=== PATIENT | male | born 1950 | race Caucasian/White ===

== ENCOUNTER 2024-11-14 14:57 | Emergency (ER) | payer SELFPAY ==
[~2024-11-14] VITALS: Ht 182.9 cm; Wt 79.4 kg
[2024-11-14] MEDS ORDERED: LIDOCAINE HCL 1% 20 ML VIAL INJ SCH (15:30)
[2024-11-14] MEDS ORDERED: CEPH500T PO (15:32)
[2024-11-14] MEDS ORDERED: MUPI22O TP (15:32)
[2024-11-14] MEDS ORDERED: IBUP-2077 PO (15:32)
--- NOTE | 2024-11-14 15:33 | ERN ---
ED Note History of Present Illness Stated Complaint: LEFT LOWER EXTREMITY LACERATION Chief Complaint: Laceration/Avulsion Time Seen by MD: 15:25 Time Seen by Midlevel: 15:10 Dictation: Patient is a 74-year-old male here with a laceration to the distal left anterior tibial area onset 1 hour prior to arrival. He said he helping some friends move some furniture when the marisabel slipped and hit him in his leg. No active bleeding at this time last tetanus shot is unknown. Patient states he is not a diabetic. Primary care is at [facility]. Allergies: Coded Allergies: Penicillins (Unverified Allergy, Unknown, 11/14/24) Past Medical History Past Medical History: No Pertinent History Surgical History: None RN Note Reviewed/Agreed w/PFSH: Yes Review of System Dictation CONSTITUTIONAL: Negative except for HPI HEAD/FACE: Negative except for HPI EENT: Negative except for HPI RESPIRATORY: Negative except for HPI GASTROINTESTINAL/ABDOMINAL: Negative except for HPI GENITOURINARY: Negative except for HPI MUSCULOSKELETAL: Negative except for HPI INTEGUMENTARY: Negative except for HPI curvilinear laceration left anterior tib NEUROLOGICAL/PSYCH: Negative except for HPI HEMATOLOGIC/LYMPHATIC: Negative except for HPI All Systems Negative, Except as noted above. 13 point review of systems assessed and all negative except for above. Initial Vital Sign VS Vital Signs Date Time Temp Pulse Resp B/P (MAP) Pulse Ox O2 Delivery O2 Flow Rate FiO2 11/14/24 14:58 99.1 84 18 184/100 97 Room Air 0 Physical Exam Dictation Vital Signs reviewed General Appearance: Alert, oriented x 3, mild acute distress, well developed, nourished. Head and Face: non-traumatic. Eyes: PERRL, pink conjunctivas, eyelid no trauma, anterior chamber with arcus senilis. Ears: Pinnas intact and no signs of trauma or erythema ear canals clear and no discharge TM no erythema Nose: No discharge, no bleeding. Oropharynx: Mouth normal, tongue pink, pharynx clear,no erythema, tonsils no exudates, no abscesses noted, mucous membrane moist Neck: Supple, non-tender, no thyromegaly, no masses, no JVD, no bruits Breast:Deferred Chest:No tenderness, no crepitus, no paradoxical movement, no retractions Lungs:Clear, well-ventilated, symmetric, no rales, no wheezing, no rhonchi, no stridor, good breath sounds bilaterally Heart: Regular rate, regular rhythm, no murmur, no gallops Vascular: no peripheral edema, Abdomen: Soft, positive bowel sounds, nondistended, no guarding, nontender, no rebound, no masses no hepatomegaly, no splenomegaly, no Villalta's sign, no hernias. Rectal: Deferred Genital: Deferred Neurological: Normal speech, motor function intact, sensory function intact Musculoskeletal: Neck nontender, full range of motion, back nontender, full range of motion, Extremities: nontender, full range of motion Skin: Color pink, dry, 8.2 cm laceration to distal left anterior tib fib no active bleeding neurovascular CMS intact Lymphatic: Deferred Results (Laboratory/Radiology) Labs Reviewed?: Yes ED Course ED Course Orders Procedure Category Date Status Time Neomy PHA 11/14/24 Transmitted Sulf/Bacitra/Polymyxin 15:30 Tetanus,Diphtheria PHA 11/14/24 Transmitted Tox [Adult] (Diphther 15:30 Acetaminophen 500mg PHA 11/14/24 Transmitted Tab (Tylenol 500mg T 15:30 Lidocaine Hcl 1% 20ml PHA 11/14/24 Transmitted Vial (Lidocaine Hc 15:30 Cephalexin 500 Mg PHA 11/14/24 Transmitted Capsule (Keflex 500 Mg 15:30 Vital Signs Date Time Temp Pulse Resp B/P (MAP) Pulse Ox O2 Delivery O2 Flow Rate FiO2 11/14/24 14:58 99.1 84 18 184/100 97 Room Air 0 1530/patient had tetanus shot updated, given Keflex 1 g prophylactically. In addition laceration was closed and pain was managed Patient tolerated well He was given wound care instructions Medical Decision Making MDM Medical decision-making based on update of tetanus shot Prophylactic cephalexin given Distal left leg laceration repaired Patient tolerated well Patient given wound care instructions Procedure Procedure Dictation: 1512/procedure explained to patient he agreed to proceed 10 mL 1% lidocaine plain used for local anesthetic Wound cleansed thoroughly with wound cleanser 8.2 cm curvilinear flap. Laceration closed with 12 simple interrupted 2.0 Ethilon sutures Single-layer closure No debridement Patient tolerated well DX & DISP Disposition: Discharge Departure Impression: Primary Impression: Laceration of left lower leg Condition: Stable Scripts Ibuprofen (Ibuprofen 800 mg Tab) 800 Mg Tab 800 MG PO Q8H PRN for fever or pain, #30 TAB 0 Refills Prov: SANGEETA PEPPER NP 11/14/24 Mupirocin (Bactroban 2% Oint) 2 % Oint 1 APPL TP TID for 5 Days, #15 GM 0 Refills apply to affected area(s) Prov: SANGEETA PEPPER NP 11/14/24 Cephalexin (Cephalexin) 500 Mg Tablet 1 TAB PO TID for 7 Days, #21 TAB 0 Refills Prov: SANGEETA PEPPER NP 11/14/24 Additional Instructions: Follow-up with primary care provider in 1 to 2 days. Take medications as directed here in the emergency room. Okay to continue home medications unless otherwise discussed during your visit in the emergency room today. Return to your nearest emergency room if symptoms worsen or if there is no improvement. Call 911 if you need immediate assistance. Take Tylenol or Motrin oxgz-shp-dyr nter as needed and if no contraindications are present. Increase oral hydration. A wound culture or urine culture was ordered here in the emergency room department please follow-up with primary care provider and advise them to get repeat ports from our facility. If you had any Fredo wrap/splints that were applied here, please do not remove them until you see your primary care or s pecialty. Keep laceration repair clean and dry., apply Bactroban ointment 3 times a day for five days with dressing. Sutures out in 14 days by your primary care doctor or may return to the emergency room. Take antibiotics as directed until gone. Referrals: SELF,REFERRAL (PCP) Time of Disposition: 15:31 I have reviewed the case, and I agree with, Diagnosis and Plan SANGEETA PEPPER NP Nov 14, 2024 15:33
[2024-11-14] MEDS: NEOMY SULF/BACITRA/POLYMYXIN B 1 EACH PACKET TP ONE (16:11)
[2024-11-14] MEDS: cePHALexin 500 MG CAPSULE PO ONE (16:12)
[2024-11-14] MEDS: acetaMINOPHEN 500 MG TABLET PO ONE (16:12)
[2024-11-14] MEDS: teTANUS/diphthERIA TOXOID [ADULT] 0.5 ML VIAL IM ONE (16:14)
--- NOTE | 2024-11-14 16:14 | NUR ---
LIDOCAINE ORDER ADMINISTERED BY SANGEETA PEPPER MOUNTER FLUTES AND PICCOLOS AT BEDSIDE
[2024-11-14 16:23] VITALS: BP 177/97; PULSE 88; RESP 16; TEMP 98.9; O2SAT 98
== END 2024-11-14 16:30 | disposition home or self-care (01) ==
LOC: EDH 14:57
DX: S81.812A Laceration without foreign body, left lower leg, initial encounter (principal); Z88.0 Allergy status to penicillin; W22.8XXA Striking against or struck by other objects, initial encounter; Y93.89 Activity, other specified; Y92.89 Other specified places as the place of occurrence of the external cause; Y99.8 Other external cause status
CPT/HCPCS: 12004; 90471; 90714; 99284

== ENCOUNTER 2025-05-26 14:08 | Inpatient (IN) | payer MEDICARE ==
[~2025-05-26] VITALS: Ht 180.3 cm; Wt 75.3 kg
[~2025-05-26 14:08] MED LIST: CEPH500T PO; IBUP-2077 PO; MUPI22O TP
[2025-05-26 15:21] LABS: NUCLEATED RED BLOOD CELLS 0.0 % (0.0-0.19); PLATELET COUNT (AUTO) 192.0 K/uL (130-400); RED BLOOD CELL COUNT(AUTO) 5.37 MIL/uL (4.50-6.20); RED CELL DISTRIBUTION WIDTH 12.4 % (11.0-15.5); WHITE BLOOD COUNT (AUTO) 8.6 K/uL (4.8-10.8)
[2025-05-26 15:31] LABS: APPEARANCE,URINE CLEAR (CLEAR); GLUCOSE, URINE (UA) NEGATIVE (NEGATIVE); LEUKOCYTE ESTERASE ,URINE NEGATIVE Leu/uL (NEGATIVE); NITRATE,URINE NEGATIVE (NEGATIVE); OCCULT BLOOD,URINE SMALL (NEGATIVE)
[2025-05-26 15:32] LABS: CREATININE 1.2 mg/dL (0.5-1.3); GLOMERULAR FILTR. RATE CALC 62.0 mL/min (>90); GLUCOSE,RANDOM 105.0 mg/dL (70-105); SODIUM SERUM 140.0 mmol/L (136-145); UREA NITROGEN, BLOOD 24.0 mg/dL (7-18)
--- NOTE | 2025-05-26 15:32 | EKG ---
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
[2025-05-26 15:34] LABS: ADD UA MICROSCOPIC YES
[2025-05-26 15:36] LABS: ASPARTATE AMINOTRANSFERASE 16.0 U/L (10-37); TOTAL PROTEIN, SERUM 7.1 g/dL (6.0-8.3)
[2025-05-26] MEDS ORDERED: IOHEXOL-350 75 ML VIAL IV ONE (16:00)
--- NOTE | 2025-05-26 16:08 | ERN ---
General Chief Complaint: Abdominal Pain Stated Complaint: ABD PAIN Time Seen by MD: 14:13 Source: patient History of Present Illness Initial Comments He is a 75-year-old male with no past medical history came to with abdominal pain. Timing/Duration: 1-3 hours Severity: moderate Associated Symptoms: denies symptoms Allergies: Coded Allergies: Penicillins (Unverified Allergy, Unknown, 11/14/24) Home Meds Active Scripts Ibuprofen (Ibuprofen 800 mg Tab) 800 Mg Tab, 800 MG PO Q8H PRN for fever or pain, #30 TAB 0 Refills Prov:SANGEETA PEPPER [facility] 11/14/24 Mupirocin (Bactroban 2% Oint) 2 % Oint, 1 APPL TP TID for 5 Days, #15 GM 0 Refills apply to affected area(s) Prov:SANGEETA PEPPER [facility] 11/14/24 Cephalexin (Cephalexin) 500 Mg Tablet, 1 TAB PO TID for 7 Days, #21 TAB 0 Refills Prov:SANGEETA PEPPER [facility] 11/14/24 Past Medical History Past Medical History: No Pertinent History Past Surgical History: Other (Hernia repair 40 years back, deviated nasal septum) Surgical History Other: RT INGUINAL HERNIA REPAIR, NASAL SX Social History Social History: Negative Gastrointestinal/Abdominal: (+) abdominal pain; (-) nausea, (-) vomiting, (-) diarrhea, (-) abdominal distention, (-) constipation, (-) rectal bleeding, (-) dark stool/melena, (-) other documentation Genitourinary: (-) penile discharge, (-) dysuria, (-) frequency, (-) hematuria, (-) pain, (-) other documentation Musculoskeletal: (-) Neck pain, (-) back pain, (-) Flank Pain, (-) joint pain, (-) joint swelling, (-) muscle pain, (-) muscle stiffness, (-) gout, (-) other documentation Skin: (-) laceration, (-) contusion, (-) abrasion, (-) abscess, (-) rash, (-) change in color, (-) change in hair, (-) change in nails, (-) diaphoresis, (-) dryness, (-) other documentation Neuro: (-) altered mental status, (-) headache, (-) syncope, (-) paralysis, (-) numbness, (-) seizure, (-) pre-existing deficit, (-) tremors, (-) weakness, (-) dizziness, (-) slurred speech, (-) vertigo, (-) other documentation Psych: (-) depression, (-) suicidal ideation, (-) anxiety, (-) emotional problems, (-) auditory hallucinations, (-) visual hallucinations Hematologic/Lymphatic: (-) anemia, (-) blood clots, (-) easy bleeding, (-) easy bruising, (-) swollen glands, (-) other documentation Immunological/Allergic: (-) food allergy, (-) grass allergy, (-) mold allergy, (-) pollen allergy, (-) HIV/AIDS, (-) transplant, (-) othe documentation Physical Exam General Appearance: (+) no apparent distress Orientation: (+) alert, (+) oriented x 3 Head/Face Trauma: No Eye: bilateral eye normal inspection, bilateral eye PERRL, bilateral eye EOMI Ear, Nose, Throat: (+) hearing grossly normal, (+) moist mucous membraine Neck: (+) normal inspection Respiratory: (+) chest non-tender, (+) lungs clear Heart: (+) regular Vascular: (+) no edema, (+) normal peripheral pulse Gastrointestinal: (+) tender Rectal: (+) normal exam Extremities: (+) normal range of motion Skin: (+) normal color IVF Sepsis Management IVF Sepsis Management BMI >30kg/m2?: No Stroke Patient?: No Results Laboratory and Microbiology Lab and Micro Result Laboratory Tests Test 05/26/25 14:40 05/26/25 15:13 Urine Color LIGHT-YELLOW (YELLOW) Urine Appearance CLEAR (CLEAR) Urine pH 5.0 (5.0-8.0) Urine Specific [place] 1.019 (1.001-1.031) Urine Protein NEGATIVE mg/dL (NEGATIVE) Urine Glucose (UA) NEGATIVE mg/dL (NEGATIVE) Urine Ketones 5 mg/dL (NEGATIVE) H Urine Occult Blood SMALL (NEGATIVE) H Urine Nitrate NEGATIVE (NEGATIVE) Urine Bilirubin NEGATIVE mg/dL (NEGATIVE) Urine Urobilinogen 0.2 mg/dL (0.2-1.0) Urine Leukocyte Esterase NEGATIVE Román/uL Urine RBC 6-10 /HPF (0-1) H Urine WBC 6-10 /HPF (0-1) H Urine Bacteria RARE /HPF (None Seen) Urine Hyaline Casts 2-5 /LPF (0-1 /LPF) H White Blood Count 8.6 K/uL (4.8-10.8) Red Blood Count 5.37 MIL/uL (4.50-6.20) Hemoglobin 15.9 g/dL (14.0-18.0) Hematocrit 45.6 % (42-54) Mean Corpuscular Volume 84.9 fL (79-99) Mean Corpuscular Hemoglobin 29.6 pg (27.0-33.0) Mean Corpuscular Hemoglobin Concent 34.9 g/dL (32.0-36.0) Red Cell Distribution Width 12.4 % (11.0-15.5) Platelet Count 192 K/uL (130-400) Mean Platelet Volume 8.8 fL (7.5-10.5) Nucleated Red Blood Cells 0.0 % (0.0-0.19) Sodium Level 140 mmol/L (136-145) Potassium Level 3.9 mmol/L (3.5-5.1) Chloride Level 103 mmol/L (101-111) Carbon Dioxide Level 27 mmol/L (21-32) Blood Urea Nitrogen 24 mg/dL (7-18) H Creatinine 1.2 mg/dL (0.5-1.3) Glomerular Filtration Rate Calc 62 mL/min (>90) Random Glucose 105 mg/dL (70-105) Lactic Acid Level 1.3 mmol/L (0.8-2.5) Total Calcium 8.6 mg/dL (8.5-10.1) Total Bilirubin 0.8 mg/dL (0.2-1.0) Direct Bilirubin 0.2 mg/dL (0.0-0.3) Aspartate Amino Transf (AST/SGOT) 16 U/L (10-37) Alanine Aminotransferase (ALT/SGPT) 15 U/L (12-78) Alkaline Phosphatase 77 U/L (50-136) Troponin I High Sensitivity < 4 ng/L (4-75) L Total Protein 7.1 g/dL (6.0-8.3) Albumin 3.8 g/dL (3.5-5.0) Lipase 34 U/L (16-77) Labs Reviewed?: Yes EKG/XRAY/US/CT/MRI CT Scan Comment [facility] [address] [place] [address] IMAGING REPORT Signed PATIENT: LAUREL WRIGHT MR#: [id number] : 1950 SEX: M AGE: 75 LOCATION: [facility] ORDER [id number] STATUS: REG ER REPORT#: [id number] SERVICE 1502 REASON: abdominal pain, hernia ORDERING PHYSICIAN: OLVIN DENISE MD PROCEDURE: ABD PEL W - CT ABDOMEN/PELVIS W/CONTRAST EXAM: CT Abdomen and Pelvis With Intravenous Contrast CLINICAL HISTORY: 75 year old male with abdominal pain and hernia TECHNIQUE: Axial computed tomography images of the abdomen and pelvis with intravenous contrast. Dose reduction technique was used including one or more of the following: automated exposure control, adjustment of mA and kV according to patient size, and/or iterative reconstruction. CONTRAST: With Intravenous Contrast COMPARISON: None provided. FINDINGS: LUNG BASES: No basilar airspace consolidation or pleural effusion. LIVER: Unremarkable. GALLBLADDER AND BILE DUCTS: Unremarkable. No calcified stone. No ductal dilation. PANCREAS: Unremarkable. SPLEEN: Unremarkable. ADRENAL GLANDS: Unremarkable. KIDNEYS, URETERS, AND BLADDER: Small bilateral to moderate-sized renal cysts, left greater than right. Symmetric excretion of contrast in both kidneys seen. Spiculated bladder mass in the left side of the bladder measuring 2.4 cm in diameter, suggestive of neoplasm such as transitional cell carcinoma. No hydronephrosis or nephrolithiasis. No ureteral calculi. STOMACH AND BOWEL: Large amount of stool in the colon. Sigmoid colon diverticulosis without diverticulitis. Fluid collection in the right side umbilical region is seen, measuring 2.9 cm in diameter, possible small incarcerated loop of small bowel as suggested on image number 38 of 101, correlate clinically. APPENDIX: Normal appendix seen. PERITONEUM: No free air. LYMPH NODES: No lymphadenopathy. REPRODUCTIVE: Unremarkable as visualized. VASCULATURE: No aortic aneurysm. ABDOMINAL WALL AND SOFT TISSUES: Unremarkable. BONES: Moderate to severe degenerative changes of the lower lumbar spine. No fracture or suspicious osseous abnormality. RECOMMENDATIONS: Cystoscopy and urologic consultation are recommended for further evaluation of the spiculated bladder mass. Nonemergent ultrasound is recommended for follow-up of the bilateral renal cysts. IMPRESSION: 1. Fluid collection in the right side umbilical region is seen, measuring 2.9 cm in diameter possible small incarcerated loop of small bowel as suggested on image number 38 of 101 correlate clinically 2. Spiculated bladder mass in the left side of the bladder measuring 2.4 cm in diameter Neoplasm such as transitional cell carcinoma. Recommend cystoscopy and urologic consultation 3. Large amount of stool in the colon 4. Small bilateral to moderate-sized bilateral renal cysts left greater than right follow up with nonemergent ultrasound /[place] DICTATED BY: NEETA GARNER MD DATE: 05/26/251847 ELECTRONICALLY SIGNED BY: NEETA GARNER MD DATE: 05/26/251847 [facility] He is a 75 year old male with no past medical history came to the ER with abdominal pain. His symptoms started 1 to 2 hours back. He had pain around the umbilicus which is radiating to the back. He describes the pain as crampy. It is not relieved by anything. He has no nausea, vomiting, diarrhea or any other symptoms. He has a history of inguinal hernia for which he had a surgery and surgery for deviated nasal septum. He does not smoke drink or use any illicit drugs. On examination there is an umbilical hernia. The site of the hernia is tender to touch. His vital signs in the ER are temperature 97, pulse 65, blood pressure 160/85, oxygen saturation is 97% on room air. His labs show WBC 8.6, hemoglobin 15.9, sodium 140, potassium 3.9, chloride 103, bicarbonate 27, lactic acid 1.3, glucose 105, lipase 34, BUN is 24. His urinalysis showed small occult blood, ketones 5, RBC is 6 to 10, WBC is 6 to 10. Ordered a [address] scan of abdomen and pelvis with contrast and it show incarcerated small bowel, spiculated marek dder mass in the bladder suspicious of transitional cell carcinoma, large amount of stool in the colon, small to moderate bilateral renal cysts left greater than right follow up with non emergent ultrasound. So we consulted surgery and added zofran PRN, hydromorphone PRN, LR at 120 ml/hr as a maintenance fluid. The patient is admitted for further management. ED Course Orders Procedure Category Date Status Time Cbc Without LAB 05/26/25 Complete Differential 15:02 Basic Metabolic Panel LAB 05/26/25 Complete 15:02 Hepatic Function Panel LAB 05/26/25 Complete 15:02 Lipase LAB 05/26/25 Complete 15:02 Troponin I High LAB 05/26/25 Complete Sensitivity 15:02 Ct Abdomen/Pelvis CT 05/26/25 Resulted W/Contrast 15:02 12 Lead Ekg Tracing- EKG 05/26/25 Complete Technical 15:02 Lactic Acid LAB 05/26/25 Complete 15:02 Urinalysis Profile LAB 05/26/25 Complete 15:02 Culture Urine CHINO 05/26/25 In Process 15:50 Iohexol (Omnipaque) PHA 05/26/25 Complete 16:00 General Surgery CONPHYSVC 05/26/25 Transmitted Consult 18:02 Npo After Midnight LEONELA 05/26/25 Transmitted 18:01 Ondansetron 4mg Inj PHA 05/26/25 In Process (Zofran 4mg Inj) 18:30 Lactated Ringers PHA 05/26/25 In Process 1000ml (Lactated 18:30 Hydromorphone 0.5mg PHA 05/26/25 In Process Syg (Dilaudid 0.5mg 18:30 Current Medications Medications (Trade) Dose Ordered Sig/Cheikh Route PRN Reason Start Time Stop Time Status Last Admin Dose Admin Hydromorphone HCl (DiLAUDid 0.5MG INJ) 0.2 mg Q6H PRN IVP PAIN LEVEL 7 TO 10 05/26/25 18:30 05/31/25 18:29 Iohexol (Omnipaque) 75 ml STK-MED ONCE IV 05/26/25 16:00 05/26/25 16:00 DC Lactated Ringer's 1,000 ml @ 125 mls/hr Q8H IV 05/26/25 18:30 06/25/25 18:29 Ondansetron HCl (zoFRAN 4MG INJ) 4 mg Q8H PRN IVP NAUSEA/VOMITING 05/26/25 18:30 06/25/25 18:29 Vital Signs Date Time Temp Pulse Resp B/P (MAP) Pulse Ox O2 Delivery O2 Flow Rate FiO2 10/8/25 18:21 97.9 68 18 167/91 97 Room Air* 0 21 05/26/25 17:07 97.9 66 18 151/79 97 Room Air* 0 21 05/26/25 14:11 97.0 65 18 160/85 97 Room Air 0 Problem List Problem Lists: (1) Umbilical hernia, incarcerated DX & DISP Disposition: Inpatient Departure Impression: Primary Impression: Umbilical hernia, incarcerated Critical Time: 30 minutes Condition: Stable Referrals: NYA HERNÁNDEZ MD (PCP) I performed a substantive portion of the visit. I have reviewed and personally made and approve the management plan that is documented in the notes by myself with IVAN/resident. I acknowledged full responsibility for the patient's management plan. 75-year-old male normal real comorbidities has a an umbilical hernia. It is not reducible. It is tender to touch. Labs are stable. Vitals are stable. CT scan shows incarcerated hernia. Surgery consulted. Recommends admission, NPO. Patient given pain control in the ER. No complications. Admitted to the hospitalist. ATTESTATION BY PHYSICIAN I have seen and examined the patient. I reviewed the documentation, medical decision making, and treatment plan as noted by the resident. I agree with the findings and plan of care. Reggie Chand AKSHAY MD May 26, 2025 16:08 REGGIE CHAND DO May 26, 2025 18:52
--- NOTE | 2025-05-26 17:49 | HMCIMG ---
EXAM: CT Abdomen and Pelvis With Intravenous Contrast CLINICAL HISTORY: 75 year old male with abdominal pain and hernia TECHNIQUE: Axial computed tomography images of the abdomen and pelvis with intravenous contrast. Dose reduction technique was used including one or more of the following: automated exposure control, adjustment of mA and kV according to patient size, and/or iterative reconstruction. CONTRAST: With Intravenous Contrast COMPARISON: None provided. FINDINGS: LUNG BASES: No basilar airspace consolidation or pleural effusion. LIVER: Unremarkable. GALLBLADDER AND BILE DUCTS: Unremarkable. No calcified stone. No ductal dilation. PANCREAS: Unremarkable. SPLEEN: Unremarkable. ADRENAL GLANDS: Unremarkable. KIDNEYS, URETERS, AND BLADDER: Small bilateral to moderate-sized renal cysts, left greater than right. Symmetric excretion of contrast in both kidneys seen. Spiculated bladder mass in the left side of the bladder measuring 2.4 cm in diameter, suggestive of neoplasm such as transitional cell carcinoma. No hydronephrosis or nephrolithiasis. No ureteral calculi. STOMACH AND BOWEL: Large amount of stool in the colon. Sigmoid colon diverticulosis without diverticulitis. Fluid collection in the right side umbilical region is seen, measuring 2.9 cm in diameter, possible small incarcerated loop of small bowel as suggested on image number 38 of 101, correlate clinically. APPENDIX: Normal appendix seen. PERITONEUM: No free air. LYMPH NODES: No lymphadenopathy. REPRODUCTIVE: Unremarkable as visualized. VASCULATURE: No aortic aneurysm. ABDOMINAL WALL AND SOFT TISSUES: Unremarkable. BONES: Moderate to severe degenerative changes of the lower lumbar spine. No fracture or suspicious osseous abnormality. RECOMMENDATIONS: Cystoscopy and urologic consultation are recommended for further evaluation of the spiculated bladder mass. Nonemergent ultrasound is recommended for follow-up of the bilateral renal cysts. IMPRESSION: 1. Fluid collection in the right side umbilical region is seen, measuring 2.9 cm in diameter possible small incarcerated loop of small bowel as suggested on image number 38 of 101 correlate clinically 2. Spiculated bladder mass in the left side of the bladder measuring 2.4 cm in diameter Neoplasm such as transitional cell carcinoma. Recommend cystoscopy and urologic consultation 3. Large amount of stool in the colon 4. Small bilateral to moderate-sized bilateral renal cysts left greater than right follow up with nonemergent ultrasound /[place]
--- NOTE | 2025-05-26 18:29 | NUR ---
GENERAL SURGERY CONSULT DONE BY DR HSU
--- NOTE | 2025-05-26 19:11 | HP ---
History of Present Illness Reason for Visit: abdominal pain History of Present Illness Mr. Wilson who is a 75-year-old male that was seen and examined today on 05/26/2025. Patient presented to the emergency department with a chief complaint of abdominal pain. Onset was noon today. Location is periumbilical. Duration is on and off. Character is described as cramping. Symptoms are aggravated with palpation. There was no alleviating factors. Patient denies any associated nausea, vomiting, chest pain or shortness and breath. Today in the emergency department CBC unremarkable, chemistry unremarkable, urinalysis unremarkable, CT of abdomen and pelvis shows right side umbilical fluid collection and a small incarcerated hernia, bladder mass start of bladder, and large amount of stool in the colon. Emergency room physician contacted general surgeon who requested patient be admitted under hospitalist service for incarcerated hernia. Past Medical History ADDITIONAL PAST MEDICAL HISTORY: [Denies] SOCIAL HISTORY: [Negative for smoking, alcohol use, drug use]. Patient lives with his , Lia shepard whom he has been with for 56 years. Patient states that he is [employer]. Patient is typically independent of all his ADLs. Patient denies difficulty pain is bills. SURGICAL HISTORY: [Denies] Review of Systems General: No Fever, No Chills, No Night Sweats, No Fatigue, No Malaise, No Appetite, No Other HEENT: No Head Aches, No Visual Changes, No Eye Pain, No Ear Pain, No Dysphasia, No Sinus Congestion, No Post Nasal Drip, No Sore Throat, No Other Pulmonary: No Dyspnea, No Cough, No Pleuritic Chest Pain, No Other Cardiovascular: No: Chest Pain, Palpitations, Orthopnea, Paroxysmal Noc. Dyspnea, Edema, Lt Headedness, Other Gastrointestinal: Abdominal Pain; No: Nausea, Vomiting, Diarrhea, Constipation, Melena, Hematochezia, Other Genitourinary: No Dysuria, No Frequency, No Incontinence, No Hematuria, No Retention, No Other Musculoskeletal: No: other, neck pain, shoulder pain, arm pain, back pain, hand pain, leg pain, foot pain Skin: No Urticaria, No Rash, No Other Neurological: No: Weakness, Numbness, Incoordination, Change in speech, Confusion, Seizures, Other Allergies: Coded Allergies: Penicillins (Unverified Allergy, Unknown, 11/14/24) Scheduled Cephalexin (Cephalexin), 1 TAB PO TID Mupirocin (Bactroban 2% Oint), 1 APPL TP TID Scheduled PRN Ibuprofen (Ibuprofen 800 mg Tab), 800 MG PO Q8H PRN for fever or pain Exam Vital Signs Vital Signs Date Time Temp Pulse Resp B/P (MAP) Pulse Ox O2 Delivery O2 Flow Rate FiO2 05/26/25 18:21 97.9 68 18 167/91 97 Room Air* 0 21 General Appearance: Alert, Oriented X3, Cooperative, mild distress HEENT: Atraumatic, EOMI Respiratory: Clear to auscultation, Normal air movement, NL respiratory effort Cardiovascular: Regular rate, Regular rhythm, Normal S1, Normal S2 Abdominal: Other (Active bowel sounds, positive tenderness) Extremities: No edema Skin: No significant lesion Neuro: Normal gait, Normal speech, Strength at 5/5 X4 ext, Sensation intact, Cranial nerves 3-12 NL Psych/Mental Status: Mental status NL, Mood NL, Thoughts/Content NL Assessment/Plan ASSESSMENT: [ Incarcerated hernia, POA Bladder mass, POA Constipation, POA] PLAN: [ Admit patient to medical floor as inpatient status. Patient will be followed by General surgery Service. Keep patient NPO. Check preprocedure labs, CBC, BMP, magnesium, phosphorus, PTT, UA, type and screen, EKG, CXR As needed analgesia with morphine. Tap water enema twice daily IV fluid maintenance therapy with lactated Ringer's 75 mL/HR Consider consulting Oncology Service versus having patient follow up outpatient for bladder mellitus findings after incarcerated hernia is resolved. GI prophylaxis, famotidine DVT prophylaxis, Romulo's and SCDs ADVANCED CARE PLANNING 1. Which of the following were discussed? Hospice Care - Yes Therapeutic options - yes Advance Directives - Yes - patient does not have any advance directives in place at this time, however his , Lia can make decisions for him if he becomes unable Other discussions - patient wishes to remain a full code at this time 2. Discussed with who? Patient 3. Voluntary nature of this service was explained to the patient? Yes 4. Amount of time spent - ___16 minutes____ 5. Reviewed by Physician? (if this service was performed by NPP) Yes This document was generated in part using voice recognition software, occasional wrong word or sound alike substitutions may have occurred due to the inherent limitations of voice recognition software. Read the chart carefully and recognize using context, where the substitutions have occurred. Although every effort was made to edit the content, manager corporate communications and typing errors may occur ATTESTATION BY PHYSICIAN I have seen and examined the patient. I reviewed the documentation, medical decision making, and treatment plan as noted by the mid-level provider above. I agree with the findings and plan of care. ] MEGHANN NEAL [facility] May 26, 2025 19:11
[2025-05-26] MEDS: LACTATED RINGERS 1000ML 1,000 ML IV SCH ×2 (19:47)
[2025-05-26 23:15] VITALS: BP 168/88; PULSE 61; RESP 16; TEMP 97.5
[2025-05-27] VITALS (7 sets, daily range): BP systolic 146–167; BP diastolic 78–87; PULSE 56–65; RESP 16–17; TEMP 97.9–98.5; O2SAT 95–97
--- NOTE | 2025-05-27 00:06 | NUR ---
BED ALARM REFUSAL AND TAP WATER ENEMA REFUSAL SIGNED WITNESSED AND PLACED IN CHART.
[2025-05-27 03:54] LABS: IMMATURE GRANULOCYTE ABSOLUTE 0.03 K/uL (0-1); NUCLEATED RED BLOOD CELLS 0.0 % (0.0-0.19); PLATELET COUNT (AUTO) 186 K/uL (130-400); RED BLOOD CELL COUNT(AUTO) 4.87 MIL/uL (4.50-6.20); RED CELL DISTRIBUTION WIDTH 12.4 % (11.0-15.5); WHITE BLOOD COUNT (AUTO) 10.1 K/uL (4.8-10.8)
[2025-05-27 04:03] LABS: INR 1.02 (0.85-1.15)
[2025-05-27 04:06] LABS: CREATININE 1.2 mg/dL (0.5-1.3); GLOMERULAR FILTR. RATE CALC 62.0 mL/min (>90); GLUCOSE,RANDOM 105.0 mg/dL (70-105); PHOSPHORUS 3.7 mg/dL (2.5-4.9); SODIUM SERUM 141.0 mmol/L (136-145); UREA NITROGEN, BLOOD 20.0 mg/dL (7-18)
--- NOTE | 2025-05-27 08:19 | PN ---
[facility] PROGRESS NOTE Date of Service: May 27, 2025 Time of Service: 08:08 He is a 75 year old male with no past medical history came to the ER with abdo hernandez pain. His symptoms started 1 to 2 hours back. He had pain around the umbilicus which is radiating to the back. He describes the pain as crampy. It is not relieved by anything. He has no nausea, vomiting, diarrhea or any other symptoms. He has a history of inguinal hernia for which he had a surgery and surgery for deviated nasal septum. He does not smoke drink or use any illicit drugs. On examination there is an umbilical hernia. The site of the hernia is tender to touch. His vital signs in the ER are temperature 97, pulse 65, blood pressure 160/85, oxygen saturation is 97% on room air. His labs show WBC 8.6, hemoglobin 15.9, sodium 140, potassium 3.9, chloride 103, bicarbonate 27, lactic acid 1.3, glucose 105, lipase 34, BUN is 24. His urinalysis showed small occult blood, ketones 5, RBC is 6 to 10, WBC is 6 to 10. Ordered a CT scan of abdomen and pelvis with contrast and it show incarcerated small bowel, spiculated bladder mass in the bladder suspicious of transitional cell carcinoma, large amount of stool in the colon, small to moderate bilateral renal cysts left greater than right follow up with non emergent ultrasound. So we consulted surgery and added zofran PRN, hydromorphone PRN, LR at 120 ml/hr as a maintenance fluid. The patient is admitted for further management. SUBJECTIVE: Patient is evaluated at the bedside. He is hemodynamically stable. He complains of abdominal pain. As per the patient he had last 1 year, but is started hurting a lot from yesterday morning. He says the size of hernia has constantly increased. Patient had bowel movement yesterday morning. Dr. Goins updated about the patients status. Surgery has been planned for tomorrow. REVIEW OF SYSTEMS CONSTITUTIONAL: No fever, chills, or night sweats. NEUROLOGICAL: Denies headache, sensory and motor deficit. CARDIOVASCULAR: Denies any exertional angina, dyspnea on exertion, orthopnea, paroxysmal nocturnal dyspnea, palpitations. PULMONARY: Denies any shortness of breath, cough, phlegm/sputum, hemoptysis, pleuritic chest pain. GASTROINTESTINAL: Complains of pain, tenderness around the abdomen. GENITOURINARY: Denies frequency, urgency, nocturia, hematuria or incontinence. PHYSICAL EXAM GENERAL APPEARANCE: The patient is alert, awake and oriented and bedbound. NEUROLOGICAL: No sensory and motor deficits. CHEST: Normal chest expansion. LUNGS: Normal vesicular breath sound. Absence of any rales, rhonchi or any wheezing. CARDIOVASCULAR: Regular. S1 and S2 normal. No appreciable rubs, murmurs or gallops. ABDOMEN: Pain around the herniated site. Has tenderness and rigidity. GENITOURINARY: No suprapubic tenderness. No costovertebral angle tenderness. Vital Signs (last 8hr) Date Time Temp Pulse Resp B/P (MAP) Pulse Ox O2 Delivery O2 Flow Rate FiO2 05/27/25 04:00 98.2 64 16 157/86 96 Room Air 05/27/25 02:30 Room Air* 0 21 05/27/25 01:03 146/78 LABS: Laboratory: Test 05/27/25 03:40 05/26/25 15:13 05/26/25 14:40 Range/Units White Blood Count 10.1 4.8-10.8 K/uL Red Blood Count 4.87 4.50-6.20 MIL/uL Hemoglobin 14.9 14.0-18.0 g/dL Hematocrit 40.8 L 42-54 % Mean Corpuscular Volume 83.8 79-99 fL Mean Corpuscular Hemoglobin 30.6 27.0-33.0 pg Mean Corpuscular Hemoglobin Concent 36.5 H 32.0-36.0 g/dL Red Cell Distribution Width 12.4 11.0-15.5 % Platelet Count 186 130-400 K/uL Mean Platelet Volume 8.7 7.5-10.5 fL Immature Granulocyte % (Auto) 0.3 0-1 % Neutrophils (%) (Auto) 73.9 40.0-77.0 % Lymphocytes (%) (Auto) 15.3 L 21.0-51.0 % Monocytes (%) (Auto) 8.3 3.0-13.0 % Eosinophils (%) (Auto) 1.8 0.0-8.0 % Basophils (%) (Auto) 0.4 0.0-5.0 % Neutrophils # (Auto) 7.5 1.8-7.7 K/uL Lymphocytes # (Auto) 1.6 1.0-4.8 K/uL Monocytes # (Auto) 0.8 0.1-1.0 K/uL Eosinophils # (Auto) 0.18 0.00-0.70 K/uL Basophils # (Auto) 0.04 0.00-0.20 K/uL Absolute Immature Granulocyte (auto 0.03 0-1 K/uL Nucleated Red Blood Cells 0.0 0.0-0.19 % Red Blood Cell Morphology See comments Prothrombin Time 10.8 9.6-11.6 SEC Prothromb Time International Ratio 1.02 0.85-1.15 Activated Partial Thromboplast Time 27.2 26.3-35.5 SEC Sodium Level 141 136-145 mmol/L Potassium Level 3.9 3.5-5.1 mmol/L Chloride Level 104 101-111 mmol/L Carbon Dioxide Level 27 21-32 mmol/L Blood Urea Nitrogen 20 H 7-18 mg/dL Creatinine 1.2 0.5-1.3 mg/dL Glomerular Filtration Rate Calc 62 >90 mL/min Random Glucose 105 70-105 mg/dL Total Calcium 8.4 L 8.5-10.1 mg/dL Phosphorus Level 3.7 2.5-4.9 mg/dL Magnesium Level 2.00 1.80-2.40 mg/dL Lactic Acid Level 1.3 0.8-2.5 mmol/L Total Bilirubin 0.8 0.2-1.0 mg/dL Direct Bilirubin 0.2 0.0-0.3 mg/dL Aspartate Amino Transf (AST/SGOT) 16 10-37 U/L Alanine Aminotransferase (ALT/SGPT) 15 12-78 U/L Alkaline Phosphatase 77 50-136 U/L Troponin I High Sensitivity < 4 L 4-75 ng/L Total Protein 7.1 6.0-8.3 g/dL Albumin 3.8 3.5-5.0 g/dL Lipase 34 16-77 U/L Urine Color LIGHT-YELLOW YELLOW Urine Appearance CLEAR CLEAR Urine pH 5.0 5.0-8.0 Urine Specific [place] 1.019 1.001-1.031 Urine Protein NEGATIVE NEGATIVE mg/dL Urine Glucose (UA) NEGATIVE NEGATIVE mg/dL Urine Ketones 5 H NEGATIVE mg/dL Urine Occult Blood SMALL H NEGATIVE Urine Nitrate NEGATIVE NEGATIVE Urine Bilirubin NEGATIVE NEGATIVE mg/dL Urine Urobilinogen 0.2 0.2-1.0 mg/dL Urine Leukocyte Esterase NEGATIVE NEGATIVE Román/uL Urine RBC 6-10 H 0-1 /HPF Urine WBC 6-10 H 0-1 /HPF Urine Bacteria RARE None Seen /HPF Urine Hyaline Casts 2-5 H 0-1 /LPF /LPF Current Medications Medications (Trade) Dose Ordered Sig/Cheikh Route PRN Reason Start Time Stop Time Status Last Admin Dose Admin Acetaminophen (TYLenol 650MG SUPPOSITORY) 650 mg Q6H PRN RC MILD PAIN (1-3) 05/26/25 20:00 06/25/25 19:59 Famotidine (Pepcid 20mg Vial) 20 mg DAILY IV 05/27/25 09:00 06/26/25 08:59 Hydralazine HCl (APRESOLine 20MG INJ) 10 mg Q6H PRN IV For:SBP above 160;DBP above 90 05/26/25 20:00 06/25/25 19:59 Hydromorphone HCl (DiLAUDid 0.5MG INJ) 0.2 mg Q6H PRN IVP PAIN LEVEL 7 TO 10 05/26/25 18:30 05/26/25 19:43 DC Lactated Ringer's 1,000 ml @ 75 mls/hr [id number] IV 05/26/25 20:00 06/25/25 19:59 Lactated Ringer's 1,000 ml @ 125 mls/hr Q8H IV 05/26/25 18:30 06/25/25 18:29 05/27/25 05:44 125 MLS/HR Levofloxacin/ Dextrose (LEvaquIN 750 MG/ D5W 150 ML) 750 mg Q24H IV 05/26/25 20:00 06/05/25 19:59 05/26/25 19:59 750 MG Metronidazole/ Sodium Chloride (flaGYL) 500 mg Q8H IV 05/26/25 22:00 06/05/25 21:59 05/27/25 05:43 500 MG Morphine Sulfate (morPHINE 4MG SYG) 2 mg Q4H PRN IVP SEVERE PAIN (7-10) 05/26/25 20:00 06/02/25 19:59 05/27/25 00:28 2 MG Ondansetron HCl (zoFRAN 4MG INJ) 4 mg Q6H PRN IV NAUSEA/VOMITING 05/26/25 20:00 06/25/25 19:59 Ondansetron HCl (zoFRAN 4MG INJ) 4 mg Q8H PRN IVP NAUSEA/VOMITING 05/26/25 18:30 05/26/25 19:44 DC DIAGNOSTICS / RADIOLOGY: [facility] [address] [place] [address] IMAGING REPORT Signed PATIENT: LAUREL WRIGHT MR#: [id number] : 1950 SEX: M AGE: 75 LOCATION: [facility] ORDER 150 STATUS: [facility] REPORT#: [id number] SERVICE 150 REASON: abdominal pain, hernia ORDERING PHYSICIAN: OLVIN DENISE MD PROCEDURE: ABD PEL W - CT ABDOMEN/PELVIS W/CONTRAST EXAM: CT Abdomen and Pelvis With Intravenous Contrast CLINICAL HISTORY: 75 year old male with abdominal pain and hernia TECHNIQUE: Axial computed tomography images of the abdomen and pelvis with intravenous contrast. Dose reduction technique was used including one or more of the following: automated exposure control, adjustment of mA and kV according to patient size, and/or iterative reconstruction. CONTRAST: With Intravenous Contrast COMPARISON: None provided. FINDINGS: LUNG BASES: No basilar airspace consolidation or pleural effusion. LIVER: Unremarkable. GALLBLADDER AND BILE DUCTS: Unremarkable. No calcified stone. No ductal dilation. PANCREAS: Unremarkable. SPLEEN: Unremarkable. ADRENAL GLANDS: Unremarkable. KIDNEYS, URETERS, AND BLADDER: Small bilateral to moderate-sized renal cysts, left greater than right. Symmetric excretion of contrast in both kidneys seen. Spiculated bladder mass in the left side of the bladder measuring 2.4 cm in diameter, suggestive of neoplasm such as transitional cell carcinoma. No hydronephrosis or nephrolithiasis. No ureteral calculi. STOMACH AND BOWEL: Large amount of stool in the colon. Sigmoid colon diverticulosis without diverticulitis. Fluid collection in the right side umbilical region is seen, measuring 2.9 cm in diameter, possible small incarcerated loop of small bowel as suggested on image number 38 of 101, correlate clinically. APPENDIX: Normal appendix seen. PERITONEUM: No free air. LYMPH NODES: No lymphadenopathy. REPRODUCTIVE: Unremarkable as visualized. VASCULATURE: No aortic aneurysm. ABDOMINAL WALL AND SOFT TISSUES: Unremarkable. BONES: Moderate to severe degenerative changes of the lower lumbar spine. No fracture or suspicious osseous abnormality. RECOMMENDATIONS: Cystoscopy and urologic consultation are recommended for further evaluation of the spiculated bladder mass. Nonemergent ultrasound is recommended for follow-up of the bilateral renal cysts. IMPRESSION: 1. Fluid collection in the right side umbilical region is seen, measuring 2.9 cm in diameter possible small incarcerated loop of small bowel as suggested on image number 38 of 101 correlate clinically 2. Spiculated bladder mass in the left side of the bladder measuring 2.4 cm in diameter Neoplasm such as transitional cell carcinoma. Recommend cystoscopy and urologic consultation 3. Large amount of stool in the colon 4. Small bilateral to moderate-sized bilateral renal cysts left greater than right follow up with nonemergent ultrasound /[facility] DICTATED BY: NEETA GARNER MD DATE: 05/26/251847 ELECTRONICALLY SIGNED BY: NEETA GARNER MD DATE: 05/26/251847 [place] [address] IMAGING REPORT Signed PATIENT: LAUREL WRIGHT MR#: [id number] : 1950 SEX: M AGE: 75 LOCATION: 1MS ORDER 40 STATUS: ADM IN REPORT#: [id number] SERVICE 36 REASON: preprocedural ORDERING PHYSICIAN: MEGHANN NEAL OR MANAGER PROCEDURE: CXR1VW - CHEST 1VW CHEST 1VW REASON: preprocedural COMPARISON: None. FINDINGS: Single view of the chest was obtained. Lungs are clear. There is hyperaeration along with flattening of both hemidiaphragms suggesting of chronic obstructive disease. Heart size is normal. There is no pulmonary vascular congestion. Mediastinum and bony thorax appear unremarkable. IMPRESSION: 1 . Chronic obstructive pulmonary disease 2. No evidence of airspace consolidation or pulmonary venous congestion DICTATED BY: FLOR ESTRELLA MD DATE: 05/27/25 1110 ELECTRONICALLY SIGNED BY: FLOR ESTRELLA MD DATE: 05/27/25 1113 ASSESSMENT: Incarcerated hernia, POA Bladder mass, POA Constipation, POA PLAN: Incarcerated hernia * Patient complained of increasing pain around the herniated site. * CT abdomen pelvis showed fluid collection in the right side umbilical region is seen, measuring 2.9 cm in diameter possible small incarcerated loop of small bowel.05/27/25 * Currently on Ringers Lactate 75mls/hr. * Dr goins has been updated about the patients status * Patient has been scheduled for open umbilical hernia repair tomorrow. * He is on Levofloxacin 750mg (Day1) and Flagyl 500mg (Day1). Bladder mass * CT showed Spiculated bladder mass in the left side of the bladder measuring 2.4 cm in diameter Neoplasm such as transitional cell carcinoma. * Urinalysis showed RBC 6-10H and WBC 6-10H. * Urology will be consulted for further recommendations and management after he undergoes surgery for the hernia. 05/27/25 Supportive measures * Continue monitoring morning labs CBC and BMP * GI and DVT prophylaxis as recommended * Closely monitor the patient ATTESTATION BY PHYSICIAN I have seen and examined the patient. I reviewed the documentation, medical decision making, and treatment plan as noted by the resident physician above. I agree with the findings and plan of care. BHUMI PEREZ MD BLAYNE ELIAS MD May 27, 2025 08:19
[2025-05-27] MEDS: FAMOTIDINE 20MG VIAL IV SCH (09:28)
--- NOTE | 2025-05-27 11:13 | HMCIMG ---
CHEST 1VW REASON: preprocedural COMPARISON: None. FINDINGS: Single view of the chest was obtained. Lungs are clear. There is hyperaeration along with flattening of both hemidiaphragms suggesting of chronic obstructive disease. Heart size is normal. There is no pulmonary vascular congestion. Mediastinum and bony thorax appear unremarkable. IMPRESSION: 1 . Chronic obstructive pulmonary disease 2. No evidence of airspace consolidation or pulmonary venous congestion
--- NOTE | 2025-05-27 11:57 | NUR ---
DCP:HOME Pt currently lives at home with his Birgit Wilson [phone]. Pt does not have any DME, home health, or provider services. Pt states that he is able to complete ADLs independently. PCP is Dr. Ayaan Willingham and uses [facility] for any RX needs. At DC pt will want to go home and family can assist with transportation. Addendum: 05/27/25 at 1159 by NENA KOO SS Amended: Links added.
--- NOTE | 2025-05-27 16:01 | CONS ---
CONSULT NOTE: Consulting physician:Dr Soliz Consulting service: General surgery Reason for consultation: Strangulated versus incarcerated umbilical hernia History of present illness: This is a 75-year-old male with no significant medical history that has been consulted to surgery after presenting to the hospital with concerns of abdominal pain at umbilical hernia site. Patient reports roughly one year history of known umbilical hernia. Due to concerns of significant pain in the inability to reduce hernia patient presented to the hospital for further evaluation. CT imaging confirming incarcerated hernia with notes of possible bladder mass. On exam hernia tender to touch with a erythema noted. Patient reporting no nausea or vomiting and no signs of obstruction at this time Medical history: None reported Surgical history: Right inguinal hernia repair Review of systems: General: No Fever, No Chills, No Night Sweats, No Fatigue, No Malaise, No Appetite, No Other HEENT: No Head Aches, No Visual Changes, No Eye Pain, No Ear Pain, No Dysphasia, No Sinus Congestion, No Post Nasal Drip, No Sore Throat, No Other Pulmonary: No Dyspnea, No Cough, No Pleuritic Chest Pain, No Other Cardiovascular: No: Chest Pain, Palpitations, Orthopnea, Paroxysmal No Dyspnea, Edema, Lt Headedness, Other Gastrointestinal: No: Nausea, Vomiting, Diarrhea, Constipation, Melena, He matochezia, Other Genitourinary: No Dysuria, No Frequency, No Incontinence, No Hematuria, No Retention, No Other Musculoskeletal: No: other, neck pain, shoulder pain, arm pain, back pain, hand pain, leg pain, foot pain Skin: No Urticaria, No Rash, No Other Neurological: No: Weakness, Numbness, Incoordination, Change in speech, Confusion, Seizures, Other Physical exam: General: Awake alert and oriented Heart: Regular rate and rhythm} Lungs: [Clear to auscultation no distress Abdomen: [Soft nontender with concerns of strangulated versus incarcerated umbilical hernia unable to reduce Assessment: This is a 75-year-old male with concerns of incarcerated possibly strangulated umbilical hernia Plan: At this point in time patient will be scheduled for open umbilical hernia repair tomorrow Patient to remain NPO We will request medical clearance for surgery tomorrow Repeat CBC and CMP Surgical team to follow patient closely Dr. Goins has been updated on patient's status Surgical case has been discussed with my supervising physician in the above plan was formulated and agreed upon Supervising physicians evaluation the patient be done within next 24 hours We appreciate the hospitalist team for us to participate in patient's care. Greater than 55 minutes of time spent patient, reviewing chart, working on documentation MONSERRAT SIMPSON Jr. PAC May 27, 2025 16:01
[2025-05-28] VITALS (7 sets, daily range): BP systolic 150–173; BP diastolic 77–87; PULSE 61–89; RESP 16–18; TEMP 98–99.2; O2SAT 96
[2025-05-28 03:36] LABS: NUCLEATED RED BLOOD CELLS 0.0 % (0.0-0.19); PLATELET COUNT (AUTO) 203.0 K/uL (130-400); RED BLOOD CELL COUNT(AUTO) 5.44 MIL/uL (4.50-6.20); RED CELL DISTRIBUTION WIDTH 12.5 % (11.0-15.5); WHITE BLOOD COUNT (AUTO) 13.8 K/uL (4.8-10.8)
[2025-05-28 03:59] LABS: CREATININE 1.2 mg/dL (0.5-1.3); GLOMERULAR FILTR. RATE CALC 62.0 mL/min (>90); GLUCOSE,RANDOM 110.0 mg/dL (70-105); SODIUM SERUM 139.0 mmol/L (136-145); UREA NITROGEN, BLOOD 20.0 mg/dL (7-18)
--- NOTE | 2025-05-28 07:39 | NUR ---
12 HR REPORT RECEIVED FROM Daniel POLLARD SILVERWARE BUFFER;
--- NOTE | 2025-05-28 15:15 | PN ---
[facility] PROGRESS NOTE Date of Service: May 28, 2025 Time of Service: 14:58 He is a 75 year old male with no past medical history came to the ER with abd ominal pain. His symptoms started 1 to 2 hours back. He had pain around the umbilicus which is radiating to the back. He describes the pain as crampy. It is not relieved by anything. He has no nausea, vomiting, diarrhea or any other symptoms. He has a history of inguinal hernia for which he had a surgery and surgery for deviated nasal septum. He does not smoke drink or use any illicit drugs. On examination there is an umbilical hernia. The site of the hernia is tender to touch. His vital signs in the ER are temperature 97, pulse 65, blood pressure 160/85, oxygen saturation is 97% on room air. His labs show WBC 8.6, hemoglobin 15.9, sodium 140, potassium 3.9, chloride 103, bicarbonate 27, lactic acid 1.3, glucose 105, lipase 34, BUN is 24. His urinalysis showed small occult blood, ketones 5, RBC is 6 to 10, WBC is 6 to 10. Ordered a CT scan of abdomen and pelvis with contrast and it show incarcerated small bowel, spiculated bladder mass in the bladder suspicious of transitional cell carcinoma, large amount of stool in the colon, small to moderate bilateral renal cysts left greater than right follow up with non emergent ultrasound. So we consulted surgery and added zofran PRN, hydromorphone PRN, LR at 120 ml/hr as a maintenance fluid. The patient is admitted for further management. SUBJECTIVE: 05/27/25 Patient is evaluated at the bedside. He is hemodynamically stable. He complains of abdominal pain. As per the patient he had last 1 year, but is started hurting a lot from yesterday morning. He says the size of hernia has constantly increased. Patient had bowel movement yesterday morning. Dr. Ruiz updated about the patients status. Surgery has been planned for tomorrow. 05/28/25 Patient is evaluated at the bedside. He is hemodynamically stable. His said his abdominal pain is reducing. He complained of nausea and vomiting. Had 2 episodes of vomiting yesterday. As per the surgery team his surgery has been rescheduled for tomorrow. REVIEW OF SYSTEMS CONSTITUTIONAL: No fever, chills, or night sweats. NEUROLOGICAL: Denies headache, sensory and motor deficit. CARDIOVASCULAR: Denies any exertional angina, dyspnea on exertion, orthopnea, paroxysmal nocturnal dyspnea, palpitations. PULMONARY: Denies any shortness of breath, cough, phlegm/sputum, hemoptysis, pleuritic chest pain. GASTROINTESTINAL: Complains of pain, tenderness around the abdomen. GENITOURINARY: Denies frequency, urgency, nocturia, hematuria or incontinence. PHYSICAL EXAM GENERAL APPEARANCE: The patient is alert, awake and oriented and bedbound. NEUROLOGICAL: No sensory and motor deficits. CHEST: Normal chest expansion. LUNGS: Normal vesicular breath sound. Absence of any rales, rhonchi or any wheezing. CARDIOVASCULAR: Regular. S1 and S2 normal. No appreciable rubs, murmurs or gallops. ABDOMEN: Pain around the herniated site. Has tenderness and rigidity. GENITOURINARY: No suprapubic tenderness. No costovertebral angle tenderness. Vital Signs (last 8hr) Date Time Temp Pulse Resp B/P (MAP) Pulse Ox O2 Delivery O2 Flow Rate FiO2 05/28/25 11:35 98.1 64 18 157/87 94 Room Air 05/28/25 07:55 96 Room Air* 0 21 05/28/25 07:51 98.1 68 18 157/78 96 Room Air LABS: Laboratory: Test 05/28/25 03:29 05/27/25 03:40 05/26/25 15:13 Range/Units White Blood Count 13.8 #H 4.8-10.8 K/uL Red Blood Count 5.44 4.50-6.20 MIL/uL Hemoglobin 16.3 14.0-18.0 g/dL Hematocrit 45.6 42-54 % Mean Corpuscular Volume 83.8 79-99 fL Mean Corpuscular Hemoglobin 30.0 27.0-33.0 pg Mean Corpuscular Hemoglobin Concent 35.7 32.0-36.0 g/dL Red Cell Distribution Width 12.5 11.0-15.5 % Platelet Count 203 130-400 K/uL Mean Platelet Volume 8.8 7.5-10.5 fL Nucleated Red Blood Cells 0.0 0.0-0.19 % Sodium Level 139 136-145 mmol/L Potassium Level 4.6 3.5-5.1 mmol/L Chloride Level 102 101-111 mmol/L Carbon Dioxide Level 26 21-32 mmol/L Blood Urea Nitrogen 20 H 7-18 mg/dL Creatinine 1.2 0.5-1.3 mg/dL Glomerular Filtration Rate Calc 62 >90 mL/min Random Glucose 110 H 70-105 mg/dL Total Calcium 8.3 L 8.5-10.1 mg/dL Immature Granulocyte % (Auto) 0.3 0-1 % Neutrophils (%) (Auto) 73.9 40.0-77.0 % Lymphocytes (%) (Auto) 15.3 L 21.0-51.0 % Monocytes (%) (Auto) 8.3 3.0-13.0 % Eosinophils (%) (Auto) 1.8 0.0-8.0 % Basophils (%) (Auto) 0.4 0.0-5.0 % Neutrophils # (Auto) 7.5 1.8-7.7 K/uL Lymphocytes # (Auto) 1.6 1.0-4.8 K/uL Monocytes # (Auto) 0.8 0.1-1.0 K/uL Eosinophils # (Auto) 0.18 0.00-0.70 K/uL Basophils # (Auto) 0.04 0.00-0.20 K/uL Absolute Immature Granulocyte (auto 0.03 0-1 K/uL Red Blood Cell Morphology See comments Prothrombin Time 10.8 9.6-11.6 SEC Prothromb Time International Ratio 1.02 0.85-1.15 Activated Partial Thromboplast Time 27.2 26.3-35.5 SEC Phosphorus Level 3.7 2.5-4.9 mg/dL Magnesium Level 2.00 1.80-2.40 mg/dL Lactic Acid Level 1.3 0.8-2.5 mmol/L Total Bilirubin 0.8 0.2-1.0 mg/dL Direct Bilirubin 0.2 0.0-0.3 mg/dL Aspartate Amino Transf (AST/SGOT) 16 10-37 U/L Alanine Aminotransferase (ALT/SGPT) 15 12-78 U/L Alkaline Phosphatase 77 50-136 U/L Troponin I High Sensitivity < 4 L 4-75 ng/L Total Protein 7.1 6.0-8.3 g/dL Albumin 3.8 3.5-5.0 g/dL Lipase 34 16-77 U/L Current Medications Medications (Trade) Dose Ordered Sig/Cheikh Route PRN Reason Start Time Stop Time Status Last Admin Dose Admin Acetaminophen (TYLenol 650MG SUPPOSITORY) 650 mg Q6H PRN RC MILD PAIN (1-3) 05/26/25 20:00 06/25/25 19:59 Famotidine (Pepcid 20mg Vial) 20 mg DAILY IV 05/27/25 09:00 06/26/25 08:59 05/28/25 08:54 20 MG Hydralazine HCl (APRESOLine 20MG INJ) 10 mg Q6H PRN IV For:SBP above 160;DBP above 90 05/26/25 20:00 06/25/25 19:59 Hydromorphone HCl (DiLAUDid 0.5MG INJ) 0.2 mg Q6H PRN IVP PAIN LEVEL 7 TO 10 05/26/25 18:30 05/26/25 19:43 DC Lactated Ringer's 1,000 ml @ 75 mls/hr [id number] IV 05/26/25 20:00 06/25/25 19:59 05/27/25 09:27 75 MLS/HR Lactated Ringer's 1,000 ml @ 125 mls/hr Q8H IV 05/26/25 18:30 06/25/25 18:29 05/27/25 20:49 125 MLS/HR Levofloxacin/ Dextrose (LEvaquIN 750 MG/ D5W 150 ML) 750 mg Q24H IV 05/26/25 20:00 06/05/25 19:59 05/27/25 20:49 750 MG Metronidazole/ Sodium Chloride (flaGYL) 500 mg Q8H IV 05/26/25 22:00 06/05/25 21:59 05/28/25 05:08 500 MG Morphine Sulfate (morPHINE 4MG SYG) 2 mg Q4H PRN IVP SEVERE PAIN (7-10) 05/26/25 20:00 06/02/25 19:59 05/27/25 20:57 2 MG Ondansetron HCl (zoFRAN 4MG INJ) 4 mg Q6H PRN IV NAUSEA/VOMITING 05/26/25 20:00 06/25/25 19:59 05/28/25 01:06 4 MG Ondansetron HCl (zoFRAN 4MG INJ) 4 mg Q8H PRN IVP NAUSEA/VOMITING 05/26/25 18:30 05/26/25 19:44 DC DIAGNOSTICS / RADIOLOGY: [ ] ASSESSMENT: Incarcerated hernia, POA Bladder mass, POA Constipation, POA PLAN: Incarcerated hernia * Patient complained of increasing pain around the herniated site. * CT abdomen pelvis showed fluid collection in the right side umbilical region is seen, measuring 2.9 cm in diameter possible small incarcerated loop of small bowel.05/27/25 * Currently on Ringers Lactate 75mls/hr. * Dr ruiz has been updated about the patients status * Patient has been scheduled for open umbilical hernia repair tomorrow. * He is on Levofloxacin 750mg (Day2) and Flagyl 500mg (Day2). * As per the surgery team his surgery has been rescheduled for tomorrow.05/28/25 Bladder mass * CT showed Spiculated bladder mass in the left side of the bladder measuring 2.4 cm in diameter Neoplasm such as transitional cell carcinoma. * Urinalysis showed RBC 6-10H and WBC 6-10H. * Urology will be consulted for further recommendations and management after he undergoes surgery for the hernia. 05/27/25 Supportive measures * Continue monitoring morning labs CBC and BMP * GI and DVT prophylaxis as recommended * Closely monitor the patient ATTESTATION BY PHYSICIAN I have seen and examined the patient. I reviewed the documentation, medical decision making, and treatment plan as noted by the resident physician above. I agree with the findings and plan of care. BHUMI PEREZ MD [facility],BLAYNE CRUMP May 28, 2025 15:15
--- NOTE | 2025-05-28 15:28 | NUR ---
INFORMED BY OR THAT DR PUCKETT HAS RESCHEDULED PROCEDURE FOR TOMORROW. PATIENT AND DR LEMOS AWARE
[2025-05-29] VITALS (26 sets, daily range): BP systolic 12–162; BP diastolic 64–89; PULSE 54–88; RESP 13–20; TEMP 97.1–98.4; O2SAT 95
[2025-05-29 03:40] LABS: NUCLEATED RED BLOOD CELLS 0.0 % (0.0-0.19); PLATELET COUNT (AUTO) 233.0 K/uL (130-400); RED BLOOD CELL COUNT(AUTO) 5.37 MIL/uL (4.50-6.20); RED CELL DISTRIBUTION WIDTH 12.5 % (11.0-15.5); WHITE BLOOD COUNT (AUTO) 13.6 K/uL (4.8-10.8)
[2025-05-29 03:54] LABS: CREATININE 1.2 mg/dL (0.5-1.3); GLOMERULAR FILTR. RATE CALC 62.0 mL/min (>90); GLUCOSE,RANDOM 113.0 mg/dL (70-105); SODIUM SERUM 137.0 mmol/L (136-145); UREA NITROGEN, BLOOD 26.0 mg/dL (7-18)
--- NOTE | 2025-05-29 09:32 | NUR ---
TAKEN OFF UNIT TO THE OR; WATCH AND PHONE VTAKEN TO SECURITY FOR SAFEKEEPING
[2025-05-29] MEDS ORDERED: MIDAZOLAM HCL 1 MG/ML 2ML VIAL ONE (10:30)
[2025-05-29] MEDS ORDERED: LIDOCAINE PF 100MG/5ML (2%) SYRINGE 5ML ONE (10:30)
[2025-05-29] MEDS ORDERED: NEOSTIGMINE METHYLSULFATE 1MG/ML IV ONE (11:26)
[2025-05-29] MEDS ORDERED: GLYCOPYRROLATE 0.2 MG/ML 5 ML VIAL ONE (11:26)
--- NOTE | 2025-05-29 11:27 | OP ---
Operative Note: DATE OF PROCEDURE: 05/29/25 SURGEON: YASMANY PUCKETT MD SENIOR IOS SOFTWARE ENGINEER: [] ANESTHESIA: [] General ANESTHESIOLOGIST/INDUSTRIAL AERIAL INSTALLER: [] PREOPERATIVE DIAGNOSIS: [] Incarcerated umbilical hernia POSTOPERATIVE DIAGNOSIS: [] Strangulated umbilical hernia SYNOPSIS: [] PROCEDURE: [] Repair of a strangulated umbilical hernia Small-bowel resection ESTIMATED BLOOD LOSS: [] Minimal INDICATIONS: [] DESCRIPTION OF PROCEDURE: [] With the patient prepped in the usual fashion a periumbilical incision was done. Using cautery dissection I was able to get to the fascia and got into the incarceration of the umbilical hernia. There was some fluid in the immediately we retrieved a loop of small bowel that was already with small perforation. This was a Soto's type of hernia were only it was incarcerated partial bowel loops. I decided to do a resection and using WENDY 60 I transected the small bowel. The mesentery was clamped and divided. An area of about4 in of the small bowel was removed. I did a [id number] anastomosis with the WENDY 60 white stapler and closed the enterotomy with WENDY 60. I reinforced the anastomosis with a 3-0 silk and I closed the mesenteric defect with a 3-0 Vicryl. After irrigation I closed the hernia after removing the sac with a 2-0 Prolene interrupted suture. Approximated the subcutaneous tissue with a 2-0 Vicryl and the skin was closed with gretchen. We placed 20 cc of local anesthesia. The patient was stable do the procedure YASMANY PUCKETT MD May 29, 2025 11:27
--- NOTE | 2025-05-29 12:30 | NUR ---
RETURNED FROM PACU; IN NO DISTRESS. ABD BINDER IN PLACE
--- NOTE | 2025-05-29 13:33 | NUR ---
RESPIRATORY NOTIFIED TO PROVIDE INSENTIVE SPIROMETER. FAMILY AT BEDSIDE AT THIS TIME, SECURITY INFORMED TO RETURN PHONE/WATCH
--- NOTE | 2025-05-29 14:29 | PN ---
[facility] PROGRESS NOTE Date of Service: May 29, 2025 Time of Service: 14:22 He is a 75 year old male with no past medical history came to the ER with abd ominal pain. His symptoms started 1 to 2 hours back. He had pain around the umbilicus which is radiating to the back. He describes the pain as crampy. It is not relieved by anything. He has no nausea, vomiting, diarrhea or any other symptoms. He has a history of inguinal hernia for which he had a surgery and surgery for deviated nasal septum. He does not smoke drink or use any illicit drugs. On examination there is an umbilical hernia. The site of the hernia is tender to touch. His vital signs in the ER are temperature 97, pulse 65, blood pressure 160/85, oxygen saturation is 97% on room air. His labs show WBC 8.6, hemoglobin 15.9, sodium 140, potassium 3.9, chloride 103, bicarbonate 27, lactic acid 1.3, glucose 105, lipase 34, BUN is 24. His urinalysis showed small occult blood, ketones 5, RBC is 6 to 10, WBC is 6 to 10. Ordered a CT scan of abdomen and pelvis with contrast and it show incarcerated small bowel, spiculated bladder mass in the bladder suspicious of transitional cell carcinoma, large amount of stool in the colon, small to moderate bilateral renal cysts left greater than right follow up with non emergent ultrasound. So we consulted surgery and added zofran PRN, hydromorphone PRN, LR at 120 ml/hr as a maintenance fluid. The patient is admitted for further management. SUBJECTIVE: 05/27/25 Patient is evaluated at the bedside. He is hemodynamically stable. He complains of abdominal pain. As per the patient he had last 1 year, but is started hurting a lot from yesterday morning. He says the size of hernia has constantly increased. Patient had bowel movement yesterday morning. Dr. Goins updated about the patients status. Surgery has been planned for tomorrow. 05/28/25 Patient is evaluated at the bedside. He is hemodynamically stable. His said his abdominal pain is reducing. He complained of nausea and vomiting. Had 2 episodes of vomiting yesterday. As per the surgery team his surgery has been rescheduled for tomorrow. 05/29/25 Patient was seen at bedside. He came back from surgery, postop was uneventful. He is resting comfortably in bed. Complains of mild abdominal pain around the surgical site but denies nausea or vomiting or sob. REVIEW OF SYSTEMS CONSTITUTIONAL: No fever, chills, or night sweats. NEUROLOGICAL: Denies headache, sensory and motor deficit. CARDIOVASCULAR: Denies any exertional angina, dyspnea on exertion, orthopnea, paroxysmal nocturnal dyspnea, palpitations. PULMONARY: Denies any shortness of breath, cough, phlegm/sputum, hemoptysis, pleuritic chest pain. GASTROINTESTINAL: Complains of mild abdominal pain around the surgical site GENITOURINARY: Denies frequency, urgency, nocturia, hematuria or incontinence. PHYSICAL EXAM GENERAL APPEARANCE: The patient is alert, awake and oriented and bedbound. NEUROLOGICAL: No sensory and motor deficits. CHEST: Normal chest expansion. LUNGS: Normal vesicular breath sound. Absence of any rales, rhonchi or any wh eezing. CARDIOVASCULAR: Regular. S1 and S2 normal. No appreciable rubs, murmurs or gallops. ABDOMEN: Pain around the herniated site. Has tenderness and rigidity. GENITOURINARY: No suprapubic tenderness. No costovertebral angle tenderness. Vital Signs (last 8hr) Date Time Temp Pulse Resp B/P (MAP) Pulse Ox O2 Delivery O2 Flow Rate FiO2 05/29/25 12:30 97.2 58 15 132/64 98 Room Air 10.0 05/29/25 12:30 98.1 69 16 136/70 98 Room Air 05/29/25 12:25 97.2 59 15 136/68 98 Room Air 10.0 05/29/25 12:20 97.2 58 15 142/77 98 Room Air 10.0 05/29/25 12:15 97.2 58 15 132/72 98 Room Air 10.0 05/29/25 12:10 97.2 60 15 149/74 98 Room Air 10.0 05/29/25 12:05 97.2 58 15 145/75 98 Room Air 10.0 05/29/25 12:00 97.2 60 15 150/80 98 Room Air 10.0 28 05/29/25 11:55 97.2 56 15 153/79 98 Nasal Cannula 10.0 28 05/29/25 11:50 97.2 54 15 160/84 98 Nonrebreathing Mask 10.0 100 05/29/25 11:45 97.2 55 15 162/86 98 Nonrebreathing Mask 10.0 100 05/29/25 11:40 97.2 55 13 155/85 96 Nonrebreathing Mask 10.0 100 05/29/25 08:43 98.1 71 16 156/89 96 Room Air 05/29/25 07:21 95 Room Air* 0 21 LABS: Laboratory: Test 05/29/25 03:27 Range/Units White Blood Count 13.6 H 4.8-10.8 K/uL Red Blood Count 5.37 4.50-6.20 MIL/uL Hemoglobin 15.9 14.0-18.0 g/dL Hematocrit 44.4 42-54 % Mean Corpuscular Volume 82.7 79-99 fL Mean Corpuscular Hemoglobin 29.6 27.0-33.0 pg Mean Corpuscular Hemoglobin Concent 35.8 32.0-36.0 g/dL Red Cell Distribution Width 12.5 11.0-15.5 % Platelet Count 233 130-400 K/uL Mean Platelet Volume 9.1 7.5-10.5 fL Nucleated Red Blood Cells 0.0 0.0-0.19 % Sodium Level 137 136-145 mmol/L Potassium Level 3.9 3.5-5.1 mmol/L Chloride Level 101 101-111 mmol/L Carbon Dioxide Level 27 21-32 mmol/L Blood Urea Nitrogen 26 H 7-18 mg/dL Creatinine 1.2 0.5-1.3 mg/dL Glomerular Filtration Rate Calc 62 >90 mL/min Random Glucose 113 H 70-105 mg/dL Total Calcium 8.3 L 8.5-10.1 mg/dL Current Medications Medications (Trade) Dose Ordered Sig/Cheikh Route PRN Reason Start Time Stop Time Status Last Admin Dose Admin Acetaminophen (TYLenol 650MG SUPPOSITORY) 650 mg Q6H PRN RC MILD PAIN (1-3) 05/26/25 20:00 06/25/25 19:59 Famotidine (Pepcid 20mg Vial) 20 mg DAILY IV 05/27/25 09:00 06/26/25 08:59 05/29/25 08:46 20 MG Hydralazine HCl (APRESOLine 20MG INJ) 10 mg Q6H PRN IV For:SBP above 160;DBP above 90 05/26/25 20:00 06/25/25 19:59 05/28/25 20:51 10 MG Hydromorphone HCl (DiLAUDid 0.5MG INJ) 0.2 mg Q6H PRN IVP PAIN LEVEL 7 TO 10 05/26/25 18:30 05/26/25 19:43 DC Lactated Ringer's 1,000 ml @ 75 mls/hr [id number] IV 05/26/25 20:00 06/25/25 19:59 05/29/25 02:19 75 MLS/HR Lactated Ringer's 1,000 ml @ 125 mls/hr Q8H IV 05/26/25 18:30 06/25/25 18:29 05/29/25 13:43 125 MLS/HR Levofloxacin/ Dextrose (LEvaquIN 750 MG/ D5W 150 ML) 750 mg Q24H IV 05/26/25 20:00 06/05/25 19:59 05/28/25 20:32 750 MG Metronidazole/ Sodium Chloride (flaGYL) 500 mg Q8H IV 05/26/25 22:00 06/05/25 21:59 05/29/25 13:44 500 MG Morphine Sulfate (morPHINE 4MG SYG) 2 mg Q4H PRN IVP SEVERE PAIN (7-10) 05/26/25 20:00 06/02/25 19:59 05/29/25 13:38 2 MG Ondansetron HCl (zoFRAN 4MG INJ) 4 mg Q6H PRN IV NAUSEA/VOMITING 05/26/25 20:00 06/25/25 19:59 05/29/25 13:39 4 MG Ondansetron HCl (zoFRAN 4MG INJ) 4 mg Q8H PRN IVP NAUSEA/VOMITING 05/26/25 18:30 05/26/25 19:44 DC DIAGNOSTICS / RADIOLOGY: [ ] ASSESSMENT: s/p Repair of a strangulated umbilical hernia with Small-bowel resection POD 0 Incarcerated hernia, POA Bladder mass, POA Constipation, POA PLAN: S/p Repair of a strangulated umbilical hernia with Small-bowel resection Incarcerated hernia * Patient had repair of strangulated hernia with minimal blood loss, monitor labs, incentive spirometry and pain control * CT abdomen pelvis showed fluid collection in the right side umbilical region is seen, measuring 2.9 cm in diameter possible small incarcerated loop of small bowel.05/27/25 * Currently on Ringers Lactate 75mls/hr. * He is on Levofloxacin 750mg (Day3) and Flagyl 500mg (Day3). Bladder mass * CT showed Spiculated bladder mass in the left side of the bladder measuring 2.4 cm in diameter Neoplasm such as transitional cell carcinoma. * Urinalysis showed RBC 6-10H and WBC 6-10H. * Urology will be consulted for further recommendations and management after he undergoes surgery for the hernia. 05/27/25 Supportive measures * Continue monitoring morning labs CBC and BMP * GI and DVT prophylaxis as recommended * Closely monitor the patient ATTESTATION BY PHYSICIAN I have seen and examined the patient. I reviewed the documentation, medical decision making, and treatment plan as noted by the resident physician above. I agree with the findings and plan of care. BHUMI PEREZ MD, NIHITHA MD May 29, 2025 14:29
--- NOTE | 2025-05-29 18:35 | NUR ---
PT UP AMBULATING IN HALLWAY WITH STEADY GIT. IN NO DISTRESS; ABD BINDER ON
[2025-05-30] VITALS (8 sets, daily range): BP systolic 119–156; BP diastolic 74–90; PULSE 62–83; RESP 16–20; TEMP 98–99.1; O2SAT 94
[2025-05-30 03:49] LABS: IMMATURE GRANULOCYTE ABSOLUTE 0.05 K/uL (0-1); NUCLEATED RED BLOOD CELLS 0.0 % (0.0-0.19); PLATELET COUNT (AUTO) 203 K/uL (130-400); RED BLOOD CELL COUNT(AUTO) 4.93 MIL/uL (4.50-6.20); RED CELL DISTRIBUTION WIDTH 12.6 % (11.0-15.5); WHITE BLOOD COUNT (AUTO) 13.7 K/uL (4.8-10.8)
[2025-05-30 04:05] LABS: ASPARTATE AMINOTRANSFERASE 29.0 U/L (10-37); CREATININE 1.1 mg/dL (0.5-1.3); GLOMERULAR FILTR. RATE CALC 69.0 mL/min (>90); GLUCOSE,RANDOM 105.0 mg/dL (70-105); SODIUM SERUM 138.0 mmol/L (136-145); TOTAL PROTEIN, SERUM 5.8 g/dL (6.0-8.3); UREA NITROGEN, BLOOD 22.0 mg/dL (7-18)
[2025-05-30] MEDS: LACTULOSE 20 GM/30 ML UDCUP PO SCH (09:50)
--- NOTE | 2025-05-30 13:09 | PN ---
[facility] PROGRESS NOTE Date of Service: May 30, 2025 Time of Service: 13:06 He is a 75 year old male with no past medical history came to the ER with abd ominal pain. His symptoms started 1 to 2 hours back. He had pain around the umbilicus which is radiating to the back. He describes the pain as crampy. It is not relieved by anything. He has no nausea, vomiting, diarrhea or any other symptoms. He has a history of inguinal hernia for which he had a surgery and surgery for deviated nasal septum. He does not smoke drink or use any illicit drugs. On examination there is an umbilical hernia. The site of the hernia is tender to touch. His vital signs in the ER are temperature 97, pulse 65, blood pressure 160/85, oxygen saturation is 97% on room air. His labs show WBC 8.6, hemoglobin 15.9, sodium 140, potassium 3.9, chloride 103, bicarbonate 27, lactic acid 1.3, glucose 105, lipase 34, BUN is 24. His urinalysis showed small occult blood, ketones 5, RBC is 6 to 10, WBC is 6 to 10. Ordered a CT scan of abdomen and pelvis with contrast and it show incarcerated small bowel, spiculated bladder mass in the bladder suspicious of transitional cell carcinoma, large amount of stool in the colon, small to moderate bilateral renal cysts left greater than right follow up with non emergent ultrasound. So we consulted surgery and added zofran PRN, hydromorphone PRN, LR at 120 ml/hr as a maintenance fluid. The patient is admitted for further management. SUBJECTIVE: 05/27/25 Patient is evaluated at the bedside. He is hemodynamically stable. He complains of abdominal pain. As per the patient he had last 1 year, but is started hurting a lot from yesterday morning. He says the size of hernia has constantly increased. Patient had bowel movement yesterday morning. Dr. Goins updated about the patients status. Surgery has been planned for tomorrow. 05/28/25 Patient is evaluated at the bedside. He is hemodynamically stable. His said his abdominal pain is reducing. He complained of nausea and vomiting. Had 2 episodes of vomiting yesterday. As per the surgery team his surgery has been rescheduled for tomorrow. 05/29/25 Patient was seen at bedside. He came back from surgery, postop was uneventful. He is resting comfortably in bed. Complains of mild abdominal pain around the surgical site but denies nausea or vomiting or sob. 05/30/25 Patient was seen bedside in room 123. s/p hernia repair day 1, case Discussed with RN, no acute overnight events. Patient says he is doing good, started ambulating denies nausea, vomiting, chest pain. Patient did not had bowel movement, we will start on lactulose today. Surgery on board and we will follow up with the recommendations. REVIEW OF SYSTEMS CONSTITUTIONAL: No fever, chills, or night sweats. NEUROLOGICAL: Denies headache, sensory and motor deficit. CARDIOVASCULAR: Denies any exertional angina, dyspnea on exertion, orthopnea, paroxysmal nocturnal dyspnea, palpitations. PULMONARY: Denies any shortness of breath, cough, phlegm/sputum, hemoptysis, pleuritic chest pain. GASTROINTESTINAL: Complains of mild abdominal pain around the surgical site GENITOURINARY: Denies frequency, urgency, nocturia, hematuria or incontinence. PHYSICAL EXAM GENERAL APPEARANCE: The patient is alert, awake and oriented and bedbound. NEUROLOGICAL: No sensory and motor deficits. CHEST: Normal chest expansion. LUNGS: Normal vesicular breath sound. Absence of any rales, rhonchi or any wheezing. CARDIOVASCULAR: Regular. S1 and S2 normal. No appreciable rubs, murmurs or gallops. ABDOMEN: Pain around the herniated site. Has tenderness and rigidity. GENITOURINARY: No suprapubic tenderness. No costovertebral angle tenderness. Vital Signs (last 8hr) Date Time Temp Pulse Resp B/P (MAP) Pulse Ox O2 Delivery O2 Flow Rate FiO2 05/30/25 12:00 98.6 62 16 150/79 95 Room Air 21 05/30/25 08:27 94 Room Air* 0 21 05/30/25 08:00 98.6 68 16 132/74 96 Room Air 21 LABS: Laboratory: Test 05/30/25 03:26 Range/Units White Blood Count 13.7 H 4.8-10.8 K/uL Red Blood Count 4.93 4.50-6.20 MIL/uL Hemoglobin 14.7 14.0-18.0 g/dL Hematocrit 41.6 L 42-54 % Mean Corpuscular Volume 84.4 79-99 fL Mean Corpuscular Hemoglobin 29.8 27.0-33.0 pg Mean Corpuscular Hemoglobin Concent 35.3 32.0-36.0 g/dL Red Cell Distribution Width 12.6 11.0-15.5 % Platelet Count 203 130-400 K/uL Mean Platelet Volume 9.0 7.5-10.5 fL Immature Granulocyte % (Auto) 0.4 0-1 % Neutrophils (%) (Auto) 79.9 H 40.0-77.0 % Lymphocytes (%) (Auto) 8.6 L 21.0-51.0 % Monocytes (%) (Auto) 10.9 3.0-13.0 % Eosinophils (%) (Auto) 0.1 0.0-8.0 % Basophils (%) (Auto) 0.1 0.0-5.0 % Neutrophils # (Auto) 10.9 H 1.8-7.7 K/uL Lymphocytes # (Auto) 1.2 1.0-4.8 K/uL Monocytes # (Auto) 1.5 H 0.1-1.0 K/uL Eosinophils # (Auto) 0.01 0.00-0.70 K/uL Basophils # (Auto) 0.02 0.00-0.20 K/uL Absolute Immature Granulocyte (auto 0.05 0-1 K/uL Nucleated Red Blood Cells 0.0 0.0-0.19 % White Cell Morphology Comment See comments Sodium Level 138 136-145 mmol/L Potassium Level 3.9 3.5-5.1 mmol/L Chloride Level 103 101-111 mmol/L Carbon Dioxide Level 27 21-32 mmol/L Blood Urea Nitrogen 22 H 7-18 mg/dL Creatinine 1.1 0.5-1.3 mg/dL Glomerular Filtration Rate Calc 69 >90 mL/min Random Glucose 105 70-105 mg/dL Total Calcium 7.9 L 8.5-10.1 mg/dL Total Bilirubin 0.8 0.2-1.0 mg/dL Aspartate Amino Transf (AST/SGOT) 29 10-37 U/L Alanine Aminotransferase (ALT/SGPT) 17 12-78 U/L Alkaline Phosphatase 50 50-136 U/L Total Protein 5.8 L 6.0-8.3 g/dL Albumin 2.6 L 3.5-5.0 g/dL Current Medications Medications (Trade) Dose Ordered Sig/Cheikh Route PRN Reason Start Time Stop Time Status Last Admin Dose Admin Acetaminophen (TYLenol 650MG SUPPOSITORY) 650 mg Q6H PRN RC MILD PAIN (1-3) 05/26/25 20:00 06/25/25 19:59 Famotidine (Pepcid 20mg Vial) 20 mg DAILY IV 05/27/25 09:00 06/26/25 08:59 05/30/25 09:50 20 MG Hydralazine HCl (APRESOLine 20MG INJ) 10 mg Q6H PRN IV For:SBP above 160;DBP above 90 05/26/25 20:00 06/25/25 19:59 05/28/25 20:51 10 MG Hydromorphone HCl (DiLAUDid 0.5MG INJ) 0.2 mg Q6H PRN IVP PAIN LEVEL 7 TO 10 05/26/25 18:30 05/26/25 19:43 DC Lactated Ringer's 1,000 ml @ 75 mls/hr [id number] IV 05/26/25 20:00 06/25/25 19:59 05/30/25 07:24 75 MLS/HR Lactated Ringer's 1,000 ml @ 125 mls/hr Q8H IV 05/26/25 18:30 06/25/25 18:29 05/30/25 09:51 125 MLS/HR Lactulose (Constulose 20gm/ 30ml Udcup) 20 gm BID PO 05/30/25 09:30 06/29/25 09:29 05/30/25 09:50 20 GM Lactulose (Constulose 20gm/ 30ml Udcup) 20 gm BID PRN PO CONSTIPATION 05/31/25 09:30 06/30/25 09:29 Levofloxacin/ Dextrose (LEvaquIN 750 MG/ D5W 150 ML) 750 mg Q24H IV 05/26/25 20:00 06/05/25 19:59 05/29/25 21:22 750 MG Metronidazole/ Sodium Chloride (flaGYL) 500 mg Q8H IV 05/26/25 22:00 06/05/25 21:59 05/30/25 07:21 500 MG Morphine Sulfate (morPHINE 4MG SYG) 2 mg Q4H PRN IVP SEVERE PAIN (7-10) 05/26/25 20:00 06/02/25 19:59 05/30/25 12:08 2 MG Ondansetron HCl (zoFRAN 4MG INJ) 4 mg Q6H PRN IV NAUSEA/VOMITING 05/26/25 20:00 06/25/25 19:59 05/29/25 13:39 4 MG Ondansetron HCl (zoFRAN 4MG INJ) 4 mg Q8H PRN IVP NAUSEA/VOMITING 05/26/25 18:30 05/26/25 19:44 DC DIAGNOSTICS / RADIOLOGY: [ ] ASSESSMENT: s/p Repair of a strangulated umbilical hernia with Small-bowel resection POD 0 Incarcerated hernia, POA Bladder mass, POA Constipation, POA PLAN: S/p Repair of a strangulated umbilical hernia with Small-bowel resection Incarcerated hernia Day 1 * Patient had repair of strangulated hernia with minimal blood loss, monitor labs, incentive spirometry and pain control * CT abdomen pelvis showed fluid collection in the right side umbilical region is seen, measuring 2.9 cm in diameter possible small incarcerated loop of small bowel.05/27/25 * Currently on Ringers Lactate 75mls/hr. * He is on Levofloxacin 750mg (Day4) and Flagyl 500mg (Day4). Bladder mass * CT showed Spiculated bladder mass in the left side of the bladder measuring 2.4 cm in diameter Neoplasm such as transitional cell carcinoma. * Urinalysis showed RBC 6-10H and WBC 6-10H. * Urology will be consulted for further recommendations and management after he undergoes surgery for the hernia. 05/27/25 Supportive measures * Continue monitoring morning labs CBC and BMP * GI and DVT prophylaxis as recommended * Closely monitor the patient ATTESTATION BY PHYSICIAN I have seen and examined the patient. I reviewed the documentation, medical decision making, and treatment plan as noted by the resident physician above. I agree with the findings and plan of care. BHUMI PEREZ MD, ADIL SHAH QUADRI MD May 30, 2025 13:09
--- NOTE | 2025-05-30 13:20 | NUR ---
PT eval cancelled as per nurse Berrios. Pt ambulating steady with no assist needed.
--- NOTE | 2025-05-30 18:13 | PN ---
GENERAL SURGERY PROGRESS NOTE Date/Time Patient Seen: [05/30/2025 2103 ] Interval History: [ 75-year-old male, postop day 1., repair of strangulated ventral hernia with small bowel resection by Dr. Goins Patient states he is doing well with expected soreness over surgical incision Dressing has remained dry and intact Patient has been using his abdominal binder Patient tolerating clear liquids without any nausea or vomiting Patient states he has not passed gas or had a bowel movement WBCs 13.7 H&H 14.7 and 41.6 ] Current Medications Medications (Trade) Dose Ordered Sig/Cheikh Route Start Time Stop Time Status Last Admin Dose Admin Famotidine (Pepcid 20mg Vial) 20 mg DAILY IV 05/27/25 09:00 06/26/25 08:59 05/30/25 09:50 20 MG Lactated Ringer's 1,000 ml @ 75 mls/hr [id number] IV 05/26/25 20:00 06/25/25 19:59 05/30/25 17:50 75 MLS/HR Lactated Ringer's 1,000 ml @ 125 mls/hr Q8H IV 05/26/25 18:30 06/25/25 18:29 05/30/25 09:51 125 MLS/HR Lactulose (Constulose 20gm/ 30ml Udcup) 20 gm BID PO 05/30/25 09:30 06/29/25 09:29 05/30/25 09:50 20 GM Levofloxacin/ Dextrose (LEvaquIN 750 MG/ D5W 150 ML) 750 mg Q24H IV 05/26/25 20:00 06/05/25 19:59 05/29/25 21:22 750 MG Metronidazole/ Sodium Chloride (flaGYL) 500 mg Q8H IV 05/26/25 22:00 06/05/25 21:59 05/30/25 15:07 500 MG Physical Examination: GENERAL: [No acute distress, elderly male, comfortably resting in bed with at bedside.] HEAD: [Normocephalic.] EYES: [Normal sclera.] ENT: [Hearing grossly intact] NECK: [Supple.] LUNGS: [Clear breath sounds bilaterally.] HEART: [Normal rate and rhythm.] VASC: [Peripheral pulses +2 bilaterally.] ABD: [Bowel sounds normal, soft, nondistended, no guarding or rigidity, surgical dressings dry and intact.] : [Not examined] EXT: [No edema.] SKIN: [No rashes or lesions noted.] NEURO: [Awake, alert, and oriented x3. No focal sensory or strength deficits noted.] Vital Signs (last 8hr) Date Time Temp Pulse Resp B/P (MAP) Pulse Ox O2 Delivery O2 Flow Rate FiO2 05/30/25 15:49 98.2 65 16 156/81 Room Air 98 05/30/25 12:00 98.6 62 16 150/79 95 Room Air 21 Laboratory: [ ] Hematology Labs: Test 05/30/25 03:26 Range/Units White Blood Count 13.7 H 4.8-10.8 K/uL Red Blood Count 4.93 4.50-6.20 MIL/uL Hemoglobin 14.7 14.0-18.0 g/dL Hematocrit 41.6 L 42-54 % Mean Corpuscular Volume 84.4 79-99 fL Mean Corpuscular Hemoglobin 29.8 27.0-33.0 pg Mean Corpuscular Hemoglobin Concent 35.3 32.0-36.0 g/dL Red Cell Distribution Width 12.6 11.0-15.5 % Platelet Count 203 130-400 K/uL Mean Platelet Volume 9.0 7.5-10.5 fL Immature Granulocyte % (Auto) 0.4 0-1 % Neutrophils (%) (Auto) 79.9 H 40.0-77.0 % Lymphocytes (%) (Auto) 8.6 L 21.0-51.0 % Monocytes (%) (Auto) 10.9 3.0-13.0 % Eosinophils (%) (Auto) 0.1 0.0-8.0 % Basophils (%) (Auto) 0.1 0.0-5.0 % Neutrophils # (Auto) 10.9 H 1.8-7.7 K/uL Lymphocytes # (Auto) 1.2 1.0-4.8 K/uL Monocytes # (Auto) 1.5 H 0.1-1.0 K/uL Eosinophils # (Auto) 0.01 0.00-0.70 K/uL Basophils # (Auto) 0.02 0.00-0.20 K/uL Absolute Immature Granulocyte (auto 0.05 0-1 K/uL Nucleated Red Blood Cells 0.0 0.0-0.19 % White Cell Morphology Comment See comments Chemistry Labs: Test 05/30/25 03:26 Range/Units Sodium Level 138 136-145 mmol/L Potassium Level 3.9 3.5-5.1 mmol/L Chloride Level 103 101-111 mmol/L Carbon Dioxide Level 27 21-32 mmol/L Blood Urea Nitrogen 22 H 7-18 mg/dL Creatinine 1.1 0.5-1.3 mg/dL Glomerular Filtration Rate Calc 69 >90 mL/min Random Glucose 105 70-105 mg/dL Total Calcium 7.9 L 8.5-10.1 mg/dL Total Bilirubin 0.8 0.2-1.0 mg/dL Aspartate Amino Transf (AST/SGOT) 29 10-37 U/L Alanine Aminotransferase (ALT/SGPT) 17 12-78 U/L Alkaline Phosphatase 50 50-136 U/L Total Protein 5.8 L 6.0-8.3 g/dL Albumin 2.6 L 3.5-5.0 g/dL Diagnostics / Radiology: [Copy/Paste Echos/Imaging Report here] Impression and Plan: [ 75-year-old male, postop day 1., repair of strangulated ventral hernia with small bowel resection by Dr. Goins May advance diet to full liquids but do not advance from there until patient is starts passing gas Colace 100 mg b.i.d. Patient encouraged to continue ambulating and aggressive IS exercises Continue using abdominal binder Continue with IV fluids and IV antibiotics Surgical team will continue to follow Dr. Goins updated on patient's status Surgical case has been discussed with my supervising physician Plan of care was formulated and agreed upon We appreciate the hospitalist team for allowing us to participate in this patient's care Greater than 45 minutes spent examining patient, reviewing chart and working on documentation] ATTESTATION BY PHYSICIAN I have seen and examined the patient. I reviewed the documentation, medical decision making, and treatment plan as noted by the mid-level provider above. I agree with the findings and plan of care. MD MARTI BUENO LETICIA A ASSEMBLY HAND May 30, 2025 18:13
[2025-05-31 03:50] LABS: NUCLEATED RED BLOOD CELLS 0.0 % (0.0-0.19); PLATELET COUNT (AUTO) 205.0 K/uL (130-400); RED BLOOD CELL COUNT(AUTO) 5.18 MIL/uL (4.50-6.20); RED CELL DISTRIBUTION WIDTH 12.5 % (11.0-15.5); WHITE BLOOD COUNT (AUTO) 12.5 K/uL (4.8-10.8)
[2025-05-31 04:00] VITALS: BP 147/82; PULSE 72; RESP 20; TEMP 98.4
[2025-05-31 04:06] LABS: CREATININE 1.1 mg/dL (0.5-1.3); GLOMERULAR FILTR. RATE CALC 69.0 mL/min (>90); GLUCOSE,RANDOM 102.0 mg/dL (70-105); SODIUM SERUM 136.0 mmol/L (136-145); UREA NITROGEN, BLOOD 21.0 mg/dL (7-18)
[2025-05-31 07:59] VITALS: BP 160/88; PULSE 76; RESP 18; TEMP 97.8
[2025-05-31 09:00] VITALS: O2SAT 93
[2025-05-31] MEDS ORDERED: LACTULOSE 20 GM/30 ML UDCUP PO PRN (09:30)
[2025-05-31 12:00] VITALS: BP 153/85; PULSE 70; RESP 17; TEMP 98
--- NOTE | 2025-05-31 15:08 | PN ---
[facility] PROGRESS NOTE Date of Service: May 31, 2025 Time of Service: 15:05 He is a 75 year old male with no past medical history came to the ER with abd ominal pain. His symptoms started 1 to 2 hours back. He had pain around the umbilicus which is radiating to the back. He describes the pain as crampy. It is not relieved by anything. He has no nausea, vomiting, diarrhea or any other symptoms. He has a history of inguinal hernia for which he had a surgery and surgery for deviated nasal septum. He does not smoke drink or use any illicit drugs. On examination there is an umbilical hernia. The site of the hernia is tender to touch. His vital signs in the ER are temperature 97, pulse 65, blood pressure 160/85, oxygen saturation is 97% on room air. His labs show WBC 8.6, hemoglobin 15.9, sodium 140, potassium 3.9, chloride 103, bicarbonate 27, lactic acid 1.3, glucose 105, lipase 34, BUN is 24. His urinalysis showed small occult blood, ketones 5, RBC is 6 to 10, WBC is 6 to 10. Ordered a CT scan of abdomen and pelvis with contrast and it show incarcerated small bowel, spiculated bladder mass in the bladder suspicious of transitional cell carcinoma, large amount of stool in the colon, small to moderate bilateral renal cysts left greater than right follow up with non emergent ultrasound. So we consulted surgery and added zofran PRN, hydromorphone PRN, LR at 120 ml/hr as a maintenance fluid. The patient is admitted for further management. SUBJECTIVE: 05/27/25 Patient is evaluated at the bedside. He is hemodynamically stable. He complains of abdominal pain. As per the patient he had last 1 year, but is started hurting a lot from yesterday morning. He says the size of hernia has constantly increased. Patient had bowel movement yesterday morning. Dr. Goins updated about the patients status. Surgery has been planned for tomorrow. 05/28/25 Patient is evaluated at the bedside. He is hemodynamically stable. His said his abdominal pain is reducing. He complained of nausea and vomiting. Had 2 episodes of vomiting yesterday. As per the surgery team his surgery has been rescheduled for tomorrow. 05/29/25 Patient was seen at bedside. He came back from surgery, postop was uneventful. He is resting comfortably in bed. Complains of mild abdominal pain around the surgical site but denies nausea or vomiting or sob. 05/30/25 Patient was seen bedside in room 123. s/p hernia repair day 1, case Discussed with RN, no acute overnight events. Patient says he is doing good, started ambulating denies nausea, vomiting, chest pain. Patient did not had bowel movement, we will start on lactulose today. Surgery on board and we will follow up with the recommendations. 05/31/25: Patient was seen bedside in room 123. s/p hernia repair day 2, no acute overnight events. Patient hasn't had a bowel movement or flatulence yet. as per surgery recommendations patient has been transitioned from Lactulose to Docusate 100mg BID. Patient says he is doing good, started ambulating denies nausea, vomiting, chest pain. REVIEW OF SYSTEMS CONSTITUTIONAL: No fever, chills, or night sweats. NEUROLOGICAL: Denies headache, sensory and motor deficit. CARDIOVASCULAR: Denies any exertional angina, dyspnea on exertion, orthopnea, paroxysmal nocturnal dyspnea, palpitations. PULMONARY: Denies any shortness of breath, cough, phlegm/sputum, hemoptysis, pleuritic chest pain. GASTROINTESTINAL: Complains of mild abdominal pain around the surgical site GENITOURINARY: Denies frequency, urgency, nocturia, hematuria or incontinence. PHYSICAL EXAM GENERAL APPEARANCE: The patient is alert, awake and oriented and bedbound. NEUROLOGICAL: No sensory and motor deficits. CHEST: Normal chest expansion. LUNGS: Normal vesicular breath sound. Absence of any rales, rhonchi or any wheezing. CARDIOVASCULAR: Regular. S1 and S2 normal. No appreciable rubs, murmurs or gallops. ABDOMEN: Pain around the herniated site. Has tenderness and rigidity. GENITOURINARY: No suprapubic tenderness. No costovertebral angle tenderness. Vital Signs (last 8hr) Date Time Temp Pulse Resp B/P (MAP) Pulse Ox O2 Delivery O2 Flow Rate FiO2 05/31/25 12:00 98.1 70 17 153/85 93 Room Air 05/31/25 09:00 93 Room Air* 0 21 05/31/25 07:59 97.9 76 18 160/88 93 Room Air LABS: Laboratory: Test 05/31/25 03:41 05/30/25 03:26 Range/Units White Blood Count 12.5 H 4.8-10.8 K/uL Red Blood Count 5.18 4.50-6.20 MIL/uL Hemoglobin 15.4 14.0-18.0 g/dL Hematocrit 43.5 42-54 % Mean Corpuscular Volume 84.0 79-99 fL Mean Corpuscular Hemoglobin 29.7 27.0-33.0 pg Mean Corpuscular Hemoglobin Concent 35.4 32.0-36.0 g/dL Red Cell Distribution Width 12.5 11.0-15.5 % Platelet Count 205 130-400 K/uL Mean Platelet Volume 9.1 7.5-10.5 fL Nucleated Red Blood Cells 0.0 0.0-0.19 % Sodium Level 136 136-145 mmol/L Potassium Level 4.4 3.5-5.1 mmol/L Chloride Level 100 L 101-111 mmol/L Carbon Dioxide Level 30 21-32 mmol/L Blood Urea Nitrogen 21 H 7-18 mg/dL Creatinine 1.1 0.5-1.3 mg/dL Glomerular Filtration Rate Calc 69 >90 mL/min Random Glucose 102 70-105 mg/dL Total Calcium 8.4 L 8.5-10.1 mg/dL Immature Granulocyte % (Auto) 0.4 0-1 % Neutrophils (%) (Auto) 79.9 H 40.0-77.0 % Lymphocytes (%) (Auto) 8.6 L 21.0-51.0 % Monocytes (%) (Auto) 10.9 3.0-13.0 % Eosinophils (%) (Auto) 0.1 0.0-8.0 % Basophils (%) (Auto) 0.1 0.0-5.0 % Neutrophils # (Auto) 10.9 H 1.8-7.7 K/uL Lymphocytes # (Auto) 1.2 1.0-4.8 K/uL Monocytes # (Auto) 1.5 H 0.1-1.0 K/uL Eosinophils # (Auto) 0.01 0.00-0.70 K/uL Basophils # (Auto) 0.02 0.00-0.20 K/uL Absolute Immature Granulocyte (auto 0.05 0-1 K/uL White Cell Morphology Comment See comments Total Bilirubin 0.8 0.2-1.0 mg/dL Aspartate Amino Transf (AST/SGOT) 29 10-37 U/L Alanine Aminotransferase (ALT/SGPT) 17 12-78 U/L Alkaline Phosphatase 50 50-136 U/L Total Protein 5.8 L 6.0-8.3 g/dL Albumin 2.6 L 3.5-5.0 g/dL Current Medications Medications (Trade) Dose Ordered Sig/Cheikh Route PRN Reason Start Time Stop Time Status Last Admin Dose Admin Acetaminophen (TYLenol 650MG SUPPOSITORY) 650 mg Q6H PRN RC MILD PAIN (1-3) 05/26/25 20:00 06/25/25 19:59 Docusate Sodium (COLace 100MG CAP) 100 mg BID PO 05/31/25 21:00 06/30/25 20:59 Famotidine (Pepcid 20mg Vial) 20 mg DAILY IV 05/27/25 09:00 06/26/25 08:59 05/31/25 08:00 20 MG Hydralazine HCl (APRESOLine 20MG INJ) 10 mg Q6H PRN IV For:SBP above 160;DBP above 90 05/26/25 20:00 06/25/25 19:59 05/28/25 20:51 10 MG Hydromorphone HCl (DiLAUDid 0.5MG INJ) 0.2 mg Q6H PRN IVP PAIN LEVEL 7 TO 10 05/26/25 18:30 05/26/25 19:43 DC Lactated Ringer's 1,000 ml @ 75 mls/hr [id number] IV 05/26/25 20:00 06/25/25 19:59 05/31/25 03:53 75 MLS/HR Lactated Ringer's 1,000 ml @ 125 mls/hr Q8H IV 05/26/25 18:30 05/31/25 06:14 DC 05/30/25 09:51 125 MLS/HR Lactulose (Constulose 20gm/ 30ml Udcup) 20 gm BID PO 05/30/25 09:30 05/31/25 14:00 DC 05/31/25 08:00 20 GM Lactulose (Constulose 20gm/ 30ml Udcup) 20 gm BID PRN PO CONSTIPATION 05/31/25 09:30 06/30/25 09:29 Levofloxacin/ Dextrose (LEvaquIN 750 MG/ D5W 150 ML) 750 mg Q24H IV 05/26/25 20:00 06/05/25 19:59 05/30/25 20:45 750 MG Metronidazole/ Sodium Chloride (flaGYL) 500 mg Q8H IV 05/26/25 22:00 06/05/25 21:59 05/31/25 14:40 500 MG Morphine Sulfate (morPHINE 4MG SYG) 2 mg Q4H PRN IVP SEVERE PAIN (7-10) 05/26/25 20:00 06/02/25 19:59 05/31/25 02:05 2 MG Ondansetron HCl (zoFRAN 4MG INJ) 4 mg Q6H PRN IV NAUSEA/VOMITING 05/26/25 20:00 06/25/25 19:59 05/31/25 02:12 4 MG Ondansetron HCl (zoFRAN 4MG INJ) 4 mg Q8H PRN IVP NAUSEA/VOMITING 05/26/25 18:30 05/26/25 19:44 DC DIAGNOSTICS / RADIOLOGY: [place] [address] IMAGING REPORT Signed PATIENT: LAUREL WRIGHT MR#: [id number] : 1950 SEX: M AGE: 75 LOCATION: S ORDER 40 STATUS: ADM IN REPORT#: [id number] SERVICE 36 REASON: preprocedural ORDERING PHYSICIAN: MEGHANN NEAL SUPERVISOR PHOTOSTAT PROCEDURE: CXR1VW - CHEST 1VW CHEST 1VW REASON: preprocedural COMPARISON: None. FINDINGS: Single view of the chest was obtained. Lungs are clear. There is hyperaeration along with flattening of both hemidiaphragms suggesting of chronic obstructive disease. Heart size is normal. There is no pulmonary vascular congestion. Mediastinum and bony thorax appear unremarkable. IMPRESSION: 1 . Chronic obstructive pulmonary disease 2. No evidence of airspace consolidation or pulmonary venous congestion DICTATED BY: FLOR ESTRELLA MD DATE: 05/27/25 1110 ELECTRONICALLY SIGNED BY: FLOR ESTRELLA MD DATE: 05/27/25 [address] [place] [id number] [place] [address] IMAGING REPORT Signed PATIENT: LAUREL WRIGHT MR#: [id number] : 1950 SEX: M AGE: 75 LOCATION: [facility] ORDER 150 STATUS: [facility] REPORT#: [id number] SERVICE 150 REASON: abdominal pain, hernia ORDERING PHYSICIAN: OLVIN DENISE MD PROCEDURE: ABD PEL W - CT ABDOMEN/PELVIS W/CONTRAST EXAM: CT Abdomen and Pelvis With Intravenous Contrast CLINICAL HISTORY: 75 year old male with abdominal pain and hernia TECHNIQUE: Axial computed tomography images of the abdomen and pelvis with intravenous contrast. Dose reduction technique was used including one or more of the following: automated exposure control, adjustment of mA and kV according to patient size, and/or iterative reconstruction. CONTRAST: With Intravenous Contrast COMPARISON: None provided. FINDINGS: LUNG BASES: No basilar airspace consolidation or pleural effusion. LIVER: Unremarkable. GALLBLADDER AND BILE DUCTS: Unremarkable. No calcified stone. No ductal dilation. PANCREAS: Unremarkable. SPLEEN: Unremarkable. ADRENAL GLANDS: Unremarkable. KIDNEYS, URETERS, AND BLADDER: Small bilateral to moderate-sized renal cysts, left greater than right. Symmetric excretion of contrast in both kidneys seen. Spiculated bladder mass in the left side of the bladder measuring 2.4 cm in diameter, suggestive of neoplasm such as transitional cell carcinoma. No hydronephrosis or nephrolithiasis. No ureteral calculi. STOMACH AND BOWEL: Large amount of stool in the colon. Sigmoid colon diverticulosis without diverticulitis. Fluid collection in the right side umbilical region is seen, measuring 2.9 cm in diameter, possible small incarcerated loop of small bowel as suggested on image number 38 of 101, correlate clinically. APPENDIX: Normal appendix seen. PERITONEUM: No free air. LYMPH NODES: No lymphadenopathy. REPRODUCTIVE: Unremarkable as visualized. VASCULATURE: No aortic aneurysm. ABDOMINAL WALL AND SOFT TISSUES: Unremarkable. BONES: Moderate to severe degenerative changes of the lower lumbar spine. No fracture or suspicious osseous abnormality. RECOMMENDATIONS: Cystoscopy and urologic consultation are recommended for further evaluation of the spiculated bladder mass. Nonemergent ultrasound is recommended for follow-up of the bilateral renal cysts. IMPRESSION: 1. Fluid collection in the right side umbilical region is seen, measuring 2.9 cm in diameter possible small incarcerated loop of small bowel as suggested on image number 38 of 101 correlate clinically 2. Spiculated bladder mass in the left side of the bladder measuring 2.4 cm in diameter Neoplasm such as transitional cell carcinoma. Recommend cystoscopy and urologic consultation 3. Large amount of stool in the colon 4. Small bilateral to moderate-sized bilateral renal cysts left greater than right follow up with nonemergent ultrasound /[facility] DICTATED BY: NEETA GARNER MD DATE: 05/26/251847 ELECTRONICALLY SIGNED BY: NEETA GARNER MD DATE: 05/26/251847 ASSESSMENT: s/p Repair of a strangulated umbilical hernia with Small-bowel resection POD 0 Incarcerated hernia, POA Bladder mass, POA Constipation, POA PLAN: S/p Repair of a strangulated umbilical hernia with Small-bowel resection Incarcerated hernia Day 2 * Patient had repair of strangulated hernia with minimal blood loss, monitor labs, incentive spirometry and pain control * CT abdomen pelvis showed fluid collection in the right side umbilical region is seen, measuring 2.9 cm in diameter possible small incarcerated loop of small bowel.05/27/25 * Currently on Ringers Lactate 75mls/hr. * He is on Levofloxacin 750mg (Day6) and Flagyl 500mg (Day6). * Patient was started on docusate 100mg BID today (05/31/25) Bladder mass * CT showed Spiculated bladder mass in the left side of the bladder measuring 2.4 cm in diameter Neoplasm such as transitional cell carcinoma. * Urinalysis showed RBC 6-10H and WBC 6-10H. * Urology will be consulted for further recommendations and management after he undergoes surgery for the hernia. 05/27/25 Supportive measures * Continue monitoring morning labs CBC and BMP * GI and DVT prophylaxis as recommended * Closely monitor the patient ATTESTATION BY PHYSICIAN I have seen and examined the patient. I reviewed the documentation, medical decision making, and treatment plan as noted by the resident physician above. I agree with the findings and plan of care. BHUMI PEREZ MD, SHAJI MD May 31, 2025 15:08
[2025-05-31 16:00] VITALS: BP 147/77; PULSE 78; RESP 15; TEMP 97.9
[2025-05-31 20:00] VITALS: BP 147/81; PULSE 69; RESP 18; TEMP 99.2; O2SAT 95
[2025-05-31] MEDS: HYDROcodone/APAP 5/325 1 TAB TABLET PO ONE (23:56)
[2025-06-01] VITALS (7 sets, daily range): BP systolic 135–169; BP diastolic 65–91; PULSE 63–74; RESP 16–19; TEMP 98.2–98.8; O2SAT 95
[2025-06-01 06:00] LABS: IMMATURE GRANULOCYTE ABSOLUTE 0.04 K/uL (0-1); NUCLEATED RED BLOOD CELLS 0.0 % (0.0-0.19); PLATELET COUNT (AUTO) 189 K/uL (130-400); RED BLOOD CELL COUNT(AUTO) 4.75 MIL/uL (4.50-6.20); RED CELL DISTRIBUTION WIDTH 12.3 % (11.0-15.5); WHITE BLOOD COUNT (AUTO) 9.8 K/uL (4.8-10.8)
[2025-06-01 06:20] LABS: CREATININE 0.9 mg/dL (0.5-1.3); GLOMERULAR FILTR. RATE CALC 88.0 mL/min (>90); GLUCOSE,RANDOM 97.0 mg/dL (70-105); SODIUM SERUM 137.0 mmol/L (136-145); UREA NITROGEN, BLOOD 21.0 mg/dL (7-18)
[2025-06-01] MEDS ORDERED: PoTASSium chl 10% ELIXIR 20MEQ 20 MEQ/15 ML UDCUP PO PRN (11:30)
--- NOTE | 2025-06-01 13:41 | PN ---
[facility] PROGRESS NOTE Date of Service: Jun 01, 2025 Time of Service: 13:33 He is a 75 year old male with no past medical history came to the ER with abd ominal pain. His symptoms started 1 to 2 hours back. He had pain around the umbilicus which is radiating to the back. He describes the pain as crampy. It is not relieved by anything. He has no nausea, vomiting, diarrhea or any other symptoms. He has a history of inguinal hernia for which he had a surgery and surgery for deviated nasal septum. He does not smoke drink or use any illicit drugs. On examination there is an umbilical hernia. The site of the hernia is tender to touch. His vital signs in the ER are temperature 97, pulse 65, blood pressure 160/85, oxygen saturation is 97% on room air. His labs show WBC 8.6, hemoglobin 15.9, sodium 140, potassium 3.9, chloride 103, bicarbonate 27, lactic acid 1.3, glucose 105, lipase 34, BUN is 24. His urinalysis showed small occult blood, ketones 5, RBC is 6 to 10, WBC is 6 to 10. Ordered a CT scan of abdomen and pelvis with contrast and it show incarcerated small bowel, spiculated bladder mass in the bladder suspicious of transitional cell carcinoma, large amount of stool in the colon, small to moderate bilateral renal cysts left greater than right follow up with non emergent ultrasound. So we consulted surgery and added zofran PRN, hydromorphone PRN, LR at 120 ml/hr as a maintenance fluid. The patient is admitted for further management. SUBJECTIVE: 05/27/25 Patient is evaluated at the bedside. He is hemodynamically stable. He complains of abdominal pain. As per the patient he had last 1 year, but is started hurting a lot from yesterday morning. He says the size of hernia has constantly increased. Patient had bowel movement yesterday morning. Dr. Goins updated about the patients status. Surgery has been planned for tomorrow. 05/28/25 Patient is evaluated at the bedside. He is hemodynamically stable. His said his abdominal pain is reducing. He complained of nausea and vomiting. Had 2 episodes of vomiting yesterday. As per the surgery team his surgery has been rescheduled for tomorrow. 05/29/25 Patient was seen at bedside. He came back from surgery, postop was uneventful. He is resting comfortably in bed. Complains of mild abdominal pain around the surgical site but denies nausea or vomiting or sob. 05/30/25 Patient was seen bedside in room 123. s/p hernia repair day 1, case Discussed with RN, no acute overnight events. Patient says he is doing good, started ambulating denies nausea, vomiting, chest pain. Patient did not had bowel movement, we will start on lactulose today. Surgery on board and we will follow up with the recommendations. 05/31/25: Patient was seen bedside in room 123. s/p hernia repair day 2, no acute overnight events. Patient hasn't had a bowel movement or flatulence yet. as per surgery recommendations patient has been transitioned from Lactulose to Docusate 100mg BID. Patient says he is doing good, started ambulating denies nausea, vomiting, chest pain. 06/01/25: Patient was seen bedside in room 123. s/p hernia repair day 3, no acute overnight events. Patient reports that he passed stool thrice. He is currently on docusate 100mg BID. Patient denies any abdominal pain, nausea vomiting, chest pain. Surgery recommended to observe the patient and evaluate him for another day and possibly discharge tomorrow. REVIEW OF SYSTEMS CONSTITUTIONAL: No fever, chills, or night sweats. NEUROLOGICAL: Denies headache, sensory and motor deficit. CARDIOVASCULAR: Denies any exertional angina, dyspnea on exertion, orthopnea, paroxysmal nocturnal dyspnea, palpitations. PULMONARY: Denies any shortness of breath, cough, phlegm/sputum, hemoptysis, pleuritic chest pain. GASTROINTESTINAL: Complains of mild abdominal pain around the surgical site GENITOURINARY: Denies frequency, urgency, nocturia, hematuria or incontinence. PHYSICAL EXAM GENERAL APPEARANCE: The patient is alert, awake and oriented and bedbound. NEUROLOGICAL: No sensory and motor deficits. CHEST: Normal chest expansion. LUNGS: Normal vesicular breath sound. Absence of any rales, rhonchi or any wheezing. CARDIOVASCULAR: Regular. S1 and S2 normal. No appreciable rubs, murmurs or gallops. ABDOMEN: Pain around the herniated site. Has tenderness and rigidity. GENITOURINARY: No suprapubic tenderness. No costovertebral angle tenderness. Vital Signs (last 8hr) Date Time Temp Pulse Resp B/P (MAP) Pulse Ox O2 Delivery O2 Flow Rate FiO2 06/01/25 11:18 98.4 63 18 135/77 92 Room Air 06/01/25 09:00 95 Room Air* 0 21 06/01/25 08:00 98.8 74 18 146/80 95 Room Air LABS: Laboratory: Test 06/01/25 05:33 Range/Units White Blood Count 9.8 4.8-10.8 K/uL Red Blood Count 4.75 4.50-6.20 MIL/uL Hemoglobin 14.0 14.0-18.0 g/dL Hematocrit 40.5 L 42-54 % Mean Corpuscular Volume 85.3 79-99 fL Mean Corpuscular Hemoglobin 29.5 27.0-33.0 pg Mean Corpuscular Hemoglobin Concent 34.6 32.0-36.0 g/dL Red Cell Distribution Width 12.3 11.0-15.5 % Platelet Count 189 130-400 K/uL Mean Platelet Volume 9.0 7.5-10.5 fL Immature Granulocyte % (Auto) 0.4 0-1 % Neutrophils (%) (Auto) 76.3 40.0-77.0 % Lymphocytes (%) (Auto) 11.5 L 21.0-51.0 % Monocytes (%) (Auto) 10.0 3.0-13.0 % Eosinophils (%) (Auto) 1.4 0.0-8.0 % Basophils (%) (Auto) 0.4 0.0-5.0 % Neutrophils # (Auto) 7.5 1.8-7.7 K/uL Lymphocytes # (Auto) 1.1 1.0-4.8 K/uL Monocytes # (Auto) 1.0 0.1-1.0 K/uL Eosinophils # (Auto) 0.14 0.00-0.70 K/uL Basophils # (Auto) 0.04 0.00-0.20 K/uL Absolute Immature Granulocyte (auto 0.04 0-1 K/uL Nucleated Red Blood Cells 0.0 0.0-0.19 % Sodium Level 137 136-145 mmol/L Potassium Level 3.5 3.5-5.1 mmol/L Chloride Level 102 101-111 mmol/L Carbon Dioxide Level 26 21-32 mmol/L Blood Urea Nitrogen 21 H 7-18 mg/dL Creatinine 0.9 0.5-1.3 mg/dL Glomerular Filtration Rate Calc 88 >90 mL/min Random Glucose 97 70-105 mg/dL Total Calcium 7.9 L 8.5-10.1 mg/dL Current Medications Medications (Trade) Dose Ordered Sig/Cheikh Route PRN Reason Start Time Stop Time Status Last Admin Dose Admin Acetaminophen (TYLenol 650MG SUPPOSITORY) 650 mg Q6H PRN RC MILD PAIN (1-3) 05/26/25 20:00 06/25/25 19:59 Acetaminophen (acetaMINOPHEN) 1,000 mg TID PRN IVPB PAIN LEVEL 4 TO 6 06/01/25 10:30 07/01/25 10:29 Docusate Sodium (COLace 100MG CAP) 100 mg BID PO 05/31/25 21:00 06/30/25 20:59 05/31/25 20:03 100 MG Famotidine (Pepcid 20mg Vial) 20 mg DAILY IV 05/27/25 09:00 06/26/25 08:59 06/01/25 09:36 20 MG Hydralazine HCl (APRESOLine 20MG INJ) 10 mg Q6H PRN IV For:SBP above 160;DBP above 90 05/26/25 20:00 06/25/25 19:59 05/28/25 20:51 10 MG Hydromorphone HCl (DiLAUDid 0.5MG INJ) 0.2 mg Q6H PRN IVP PAIN LEVEL 7 TO 10 05/26/25 18:30 05/26/25 19:43 DC Lactated Ringer's 1,000 ml @ 75 mls/hr [id number] IV 05/26/25 20:00 06/25/25 19:59 06/01/25 11:43 75 MLS/HR Lactated Ringer's 1,000 ml @ 125 mls/hr Q8H IV 05/26/25 18:30 05/31/25 06:14 DC 05/30/25 09:51 125 MLS/HR Lactulose (Constulose 20gm/ 30ml Udcup) 20 gm BID PO 05/30/25 09:30 05/31/25 14:00 DC 05/31/25 08:00 20 GM Lactulose (Constulose 20gm/ 30ml Udcup) 20 gm BID PRN PO CONSTIPATION 05/31/25 09:30 06/30/25 09:29 Levofloxacin/ Dextrose (LEvaquIN 750 MG/ D5W 150 ML) 750 mg Q24H IV 05/26/25 20:00 06/05/25 19:59 05/31/25 20:03 750 MG Metronidazole/ Sodium Chloride (flaGYL) 500 mg Q8H IV 05/26/25 22:00 06/05/25 21:59 06/01/25 06:15 500 MG Morphine Sulfate (morPHINE 4MG SYG) 2 mg Q4H PRN IVP SEVERE PAIN (7-10) 05/26/25 20:00 05/31/25 22:59 DC 05/31/25 02:05 2 MG Ondansetron HCl (zoFRAN 4MG INJ) 4 mg Q6H PRN IV NAUSEA/VOMITING 05/26/25 20:00 06/25/25 19:59 05/31/25 02:12 4 MG Ondansetron HCl (zoFRAN 4MG INJ) 4 mg Q8H PRN IVP NAUSEA/VOMITING 05/26/25 18:30 05/26/25 19:44 DC Potassium Chloride 100 ml @ 100 mls/hr AD PRN IV POTASSIUM PROTOCOL 06/01/25 11:30 07/01/25 11:29 06/01/25 11:42 100 MLS/HR Potassium Chloride (K-Dur/Klor-Con 20meq) 20 meq AD PRN PO POTASSIUM PROTOCOL 06/01/25 11:30 07/01/25 11:29 Potassium Chloride (KCl 10% Elixir 20meq/15ml) 20 meq AD PRN PO POTASSIUM PROTOCOL 06/01/25 11:30 07/01/25 11:29 DIAGNOSTICS / RADIOLOGY: [place] [address] [place] [address] IMAGING REPORT Signed PATIENT: LAUREL WRIGHT MR#: [id number] : 1950 SEX: M AGE: 75 LOCATION: 1MS ORDER 40 STATUS: ADM IN REPORT#: [id number] SERVICE 36 REASON: preprocedural ORDERING PHYSICIAN: MEGHANN NEAL EMERGENCY MANAGER PROCEDURE: CXR1VW - CHEST 1VW CHEST 1VW REASON: preprocedural COMPARISON: None. FINDINGS: Single view of the chest was obtained. Lungs are clear. There is hyperaeration along with flattening of both hemidiaphragms suggesting of chronic obstructive disease. Heart size is normal. There is no pulmonary vascular congestion. Mediastinum and bony thorax appear unremarkable. IMPRESSION: 1 . Chronic obstructive pulmonary disease 2. No evidence of airspace consolidation or pulmonary venous congestion DICTATED BY: FLOR ESTRELLA MD DATE: 05/27/25 1110 ELECTRONICALLY SIGNED BY: FLOR ESTRELLA MD DATE: 05/27/25 [address] [place] [id number] [address] IMAGING REPORT Signed PATIENT: LAUREL WRIGHT MR#: [id number] : 1950 SEX: M AGE: 75 LOCATION: ED ORDER 1505 STATUS: [facility] REPORT#: [id number] SERVICE 1502 REASON: abdominal pain, hernia ORDERING PHYSICIAN: OLVIN DENISE MD PROCEDURE: ABD PEL W - CT ABDOMEN/PELVIS W/CONTRAST EXAM: CT Abdomen and Pelvis With Intravenous Contrast CLINICAL HISTORY: 75 year old male with abdominal pain and hernia TECHNIQUE: Axial computed tomography images of the abdomen and pelvis with intravenous contrast. Dose reduction technique was used including one or more of the following: automated exposure control, adjustment of mA and kV according to patient size, and/or iterative reconstruction. CONTRAST: With Intravenous Contrast COMPARISON: None provided. FINDINGS: LUNG BASES: No basilar airspace consolidation or pleural effusion. LIVER: Unremarkable. GALLBLADDER AND BILE DUCTS: Unremarkable. No calcified stone. No ductal dilation. PANCREAS: Unremarkable. SPLEEN: Unremarkable. ADRENAL GLANDS: Unremarkable. KIDNEYS, URETERS, AND BLADDER: Small bilateral to moderate-sized renal cysts, left greater than right. Symmetric excretion of contrast in both kidneys seen. Spiculated bladder mass in the left side of the bladder measuring 2.4 cm in diameter, suggestive of neoplasm such as transitional cell carcinoma. No hydronephrosis or nephrolithiasis. No ureteral calculi. STOMACH AND BOWEL: Large amount of stool in the colon. Sigmoid colon diverticulosis without diverticulitis. Fluid collection in the right side umbilical region is seen, measuring 2.9 cm in diameter, possible small incarcerated loop of small bowel as suggested on image number 38 of 101, correlate clinically. APPENDIX: Normal appendix seen. PERITONEUM: No free air. LYMPH NODES: No lymphadenopathy. REPRODUCTIVE: Unremarkable as visualized. VASCULATURE: No aortic aneurysm. ABDOMINAL WALL AND SOFT TISSUES: Unremarkable. BONES: Moderate to severe degenerative changes of the lower lumbar spine. No fracture or suspicious osseous abnormality. RECOMMENDATIONS: Cystoscopy and urologic consultation are recommended for further evaluation of the spiculated bladder mass. Nonemergent ultrasound is recommended for follow-up of the bilateral renal cysts. IMPRESSION: 1. Fluid collection in the right side umbilical region is seen, measuring 2.9 cm in diameter possible small incarcerated loop of small bowel as suggested on image number 38 of 101 correlate clinically 2. Spiculated bladder mass in the left side of the bladder measuring 2.4 cm in diameter Neoplasm such as transitional cell carcinoma. Recommend cystoscopy and urologic consultation 3. Large amount of stool in the colon 4. Small bilateral to moderate-sized bilateral renal cysts left greater than right follow up with nonemergent ultrasound /[place] DICTATED BY: NEETA GARNER MD DATE: 05/26/251847 ELECTRONICALLY SIGNED BY: NEETA GARNER MD DATE: 05/26/251847 ASSESSMENT: s/p Repair of a strangulated umbilical hernia with Small-bowel resection POD 0 Incarcerated hernia, POA Bladder mass, POA Constipation, POA PLAN: S/p Repair of a strangulated umbilical hernia with Small-bowel resection Incarcerated hernia Day 3 * Patient had repair of strangulated hernia with minimal blood loss, monitor labs, incentive spirometry and pain control * CT abdomen pelvis showed fluid collection in the right side umbilical region is seen, measuring 2.9 cm in diameter possible small incarcerated loop of small bowel.05/27/25 * Currently on Ringers Lactate 75mls/hr. * He is on Levofloxacin 750mg (Day7) and Flagyl 500mg (Day7). * Continue on docusate 100mg BID today (05/31/25) * Surgery recommended to observe the patient and evaluate him for another day and possibly discharge tomorrow. Bladder mass * CT showed Spiculated bladder mass in the left side of the bladder measuring 2.4 cm in diameter Neoplasm such as transitional cell carcinoma. * Urinalysis showed RBC 6-10H and WBC 6-10H. * Urology will be consulted for further recommendations and management after he undergoes surgery for the hernia. 05/27/25 Supportive measures * Continue monitoring morning labs CBC and BMP * GI and DVT prophylaxis as recommended * Closely monitor the patient ATTESTATION BY PHYSICIAN I have seen and examined the patient. I reviewed the documentation, medical decision making, and treatment plan as noted by the resident physician above. I agree with the findings and plan of care. BHUMI PEREZ MD, SHAJI MD Jun 01, 2025 13:41
[2025-06-02] VITALS: BP 141/83; PULSE 65; RESP 18; TEMP 98.5
[2025-06-02 04:00] VITALS: BP 161/79; PULSE 57; RESP 16; TEMP 98.4
[2025-06-02 05:58] LABS: IMMATURE GRANULOCYTE ABSOLUTE 0.04 K/uL (0-1); NUCLEATED RED BLOOD CELLS 0.0 % (0.0-0.19); PLATELET COUNT (AUTO) 225 K/uL (130-400); RED BLOOD CELL COUNT(AUTO) 4.74 MIL/uL (4.50-6.20); RED CELL DISTRIBUTION WIDTH 12.2 % (11.0-15.5); WHITE BLOOD COUNT (AUTO) 8.6 K/uL (4.8-10.8)
[2025-06-02 06:13] LABS: CREATININE 1.0 mg/dL (0.5-1.3); GLOMERULAR FILTR. RATE CALC 78.0 mL/min (>90); GLUCOSE,RANDOM 95.0 mg/dL (70-105); SODIUM SERUM 138.0 mmol/L (136-145); UREA NITROGEN, BLOOD 18.0 mg/dL (7-18)
[2025-06-02 07:30] VITALS: BP 154/77; PULSE 63; RESP 18; TEMP 98.7
[2025-06-02] MEDS: PoTASSium chloRIDE 20MEQ ER 20 MEQ ERTAB PO PRN (08:22)
[2025-06-02 10:01] VITALS: O2SAT 94
[2025-06-02 12:07] VITALS: BP 136/82; PULSE 66; RESP 18; TEMP 98.6
[2025-06-02 15:50] VITALS: BP 142/87; PULSE 64; RESP 18; TEMP 98.5
--- NOTE | 2025-06-02 17:18 | PN ---
This is a 75-year-old male status post hernia repair with small-bowel resection Interval history: This 75-year-old male seen in his room resting Patient tolerating soft diet Pain controlled From surgical standpoint patient is doing well incisions clean and dry Patient compliant with the abdominal binder Physical exam General: [Awake alert and oriented] Heart: [Regular rate and rhythm} Lungs: [Clear to auscultation no distress] Abdomen: [Soft, nontender, nondistended] Assessment : This is a 75-year-old male status post hernia repair with small-bowel resection Plan: At this point in time from surgical standpoint patient cleared for discharge once cleared medically Patient to refrain from lifting heavy objects Avoid constipation Increased water intake Follow up in two weeks with Dr. Goins's office Surgical case has been discussed with my supervising physician in the above plan was formulated and agreed upon We appreciate the hospitalist team for us to participate in patient's care. Greater than 45 minutes of time spent patient, reviewing chart, working on documentation Vitals/Labs Vital Signs Date Time Temp Pulse Resp B/P (MAP) Pulse Ox O2 Delivery O2 Flow Rate FiO2 06/02/25 15:50 98.4 64 18 142/87 96 Room Air 06/02/25 10:01 0 21 Laboratory Tests 06/02/25 05:31 Medications Current Medications Iohexol 75 ml STK-MED ONCE IV; Start 05/26/25 at 16:00; Stop 05/26/25 at 16:00; Status DC Hydromorphone HCl 0.2 mg Q6H PRN IVP; Start 05/26/25 at 18:30; Stop 05/26/25 at 19:43; Status DC Ondansetron HCl 4 mg Q8H PRN IVP; Start 05/26/25 at 18:30; Stop 05/26/25 at 19:44; Status DC Lactated Ringer's 1,000 ml @ 125 mls/hr Q8H IV Last administered on 05/30/25at 09:51; Start 05/26/25 at 18:30; Stop 05/31/25 at 06:14; Status DC Famotidine 20 mg DAILY IV Last administered on 06/02/25at 08:22; Start 05/27/25 at 09:00; Stop 06/26/25 at 08:59 Hydralazine HCl 10 mg Q6H PRN IV Last administered on 05/28/25at 20:51; Start 05/26/25 at 20:00; Stop 06/25/25 at 19:59 Lactated Ringer's 1,000 ml @ 75 mls/hr [id number] IV Last administered on 06/02/25at 12:05; Start 05/26/25 at 20:00; Stop 06/25/25 at 19:59 Morphine Sulfate 2 mg Q4H PRN IVP Last administered on 05/31/25at 02:05; Start 05/26/25 at 20:00; Stop 05/31/25 at 22:59; Status DC Ondansetron HCl 4 mg Q6H PRN IV Last administered on 05/31/25at 02:12; Start 05/26/25 at 20:00; Stop 06/25/25 at 19:59 Acetaminophen 650 mg Q6H PRN RC; Start 05/26/25 at 20:00; Stop 06/25/25 at 19:59 Levofloxacin/ Dextrose 750 mg Q24H IV Last administered on 06/01/25at 20:14; Start 05/26/25 at 20:00; Stop 06/05/25 at 19:59 Metronidazole/ Sodium Chloride 500 mg Q8H IV Last administered on 06/02/25at 13:54; Start 05/26/25 at 22:00; Stop 06/05/25 at 21:59 Bupivacaine HCl 5 mg STK-MED ONCE .ROUTE; Start 05/29/25 at 07:23; Stop 05/29/25 at 07:23; Status DC Lidocaine HCl 100 mg STK-MED ONCE .ROUTE; Start 05/29/25 at 10:30; Stop 05/29/25 at 10:30; Status DC Ondansetron HCl 4 mg STK-MED ONCE .ROUTE; Start 05/29/25 at 10:30; Stop 05/29/25 at 10:30; Status DC Dexamethasone Sodium Phosphate 10 mg STK-MED ONCE .ROUTE; Start 05/29/25 at 10:30; Stop 05/29/25 at 10:30; Status DC Propofol 200 mg STK-MED ONCE IV; Start 05/29/25 at 10:30; Stop 05/29/25 at 10:31; Status DC Midazolam HCl 2 mg STK-MED ONCE .ROUTE; Start 05/29/25 at 10:30; Stop 05/29/25 at 10:31; Status DC Rocuronium [place] 50 mg STK-MED ONCE .ROUTE; Start 05/29/25 at 10:30; Stop 05/29/25 at 10:31; Status DC Fentanyl Citrate 100 mcg STK-MED ONCE .ROUTE; Start 05/29/25 at 10:31; Stop 05/29/25 at 10:31; Status DC Ropivacaine 150 mg STK-MED ONCE .ROUTE; Start 05/29/25 at 10:34; Stop 05/29/25 at 10:34; Status DC Acetaminophen 100 ml @ As Directed STK-MED ONCE .ROUTE; Start 05/29/25 at 10:35; Stop 05/29/25 at 10:35; Status DC Glycopyrrolate 1 mg STK-MED ONCE .ROUTE; Start 05/29/25 at 11:26; Stop 05/29/25 at 11:26; Status DC Neostigmine Methylsulfate 10 mg STK-MED ONCE IV; Start 05/29/25 at 11:26; Stop 05/29/25 at 11:26; Status DC Bupivacaine HCl 150 mg STK-MED ONCE INJ Last administered on 05/29/25at 11:16; Start 05/29/25 at 11:16; Stop 05/29/25 at 12:03; Status DC Lactulose 20 gm BID PO Last administered on 05/31/25at 08:00; Start 05/30/25 at 09:30; Stop 05/31/25 at 14:00; Status DC Lactulose 20 gm BID PRN PO; Start 05/31/25 at 09:30; Stop 06/30/25 at 09:29 Docusate Sodium 100 mg BID PO Last administered on 05/31/25at 20:03; Start 05/31/25 at 21:00; Stop 06/30/25 at 20:59 Acetaminophen/ Hydrocodone Bitart 1 tab ONCE ONCE PO Last administered on 05/31/25at 23:56; Start 06/01/25 at 00:00; Stop 06/01/25 at 00:01; Status DC Acetaminophen 1,000 mg TID PRN IVPB; Start 06/01/25 at 10:30; Stop 07/01/25 at 10:29 Potassium Chloride 100 ml @ 100 mls/hr AD PRN IV Last administered on 06/01/25at 11:42; Start 06/01/25 at 11:30; Stop 07/01/25 at 11:29 Potassium Chloride 20 meq AD PRN PO; Start 06/01/25 at 11:30; Stop 07/01/25 at 11:29 Potassium Chloride 20 meq AD PRN PO Last administered on 06/02/25at 13:55; Start 06/01/25 at 11:30; Stop 07/01/25 at 11:29 MONSERRAT SIMPSON Jr. PAC Jun 02, 2025 17:18
--- NOTE | 2025-06-02 17:22 | NUR ---
Pt. given discharge instructions. All questions answered. Peripheral IV removed--hemostasis achieved. Pt. discharged via w/c to private vehicle. No acute distress noted.
--- NOTE | 2025-06-02 17:25 | DS ---
Discharge Summary Hospital Course Summary: A 75-year-old male with no significant chronic medical history presented to the emergency department with acute onset abdominal pain, which began 12 hours prior to arrival and was described as crampy, periumbilical, and radiating to the back. He denied associated symptoms such as nausea, vomiting, or diarrhea. His past surgical history was notable for prior inguinal hernia repair and deviated septum surgery. He did not use tobacco, alcohol, or illicit drugs. On examination, he was afebrile and hemodynamically stable, but was found to have a tender, irreducible umbilical hernia. Laboratory studies were notable for a normal white blood cell count, normal lactic acid, and mild elevation in BUN. Urinalysis revealed microscopic hematuria and pyuria. A contrast-enhanced CT scan of the abdomen and pelvis demonstrated an incarcerated small bowel within the umbilical hernia, a spiculated 2.4 cm bladder mass suspicious for transitional cell carcinoma, a large stool burden, and bilateral renal cysts. Given the acute presentation and imaging findings, the patient was diagnosed with an incarcerated, likely strangulated, umbilical hernia. He underwent repair of a strangulated umbilical hernia with small-bowel resection. Intraoperatively, minimal blood loss was noted. Postoperatively, he was admitted for close monitoring and management. His postoperative care included intravenous Ringers Lactate at 75 mL/hr, prophylactic antibiotics with levofloxacin and metronidazole, and a bowel regimen with docusate, consistent with enhanced recovery protocols and geriatric surgery standards. Pain was managed with scheduled and PRN analgesics, and incentive spirometry was encouraged to reduce pulmonary complications. Daily laboratory monitoring was performed to assess for infection, electrolyte disturbances, and renal function. Throughout the hospital course patient was hemodynamically stable. Today patient reports feeling well. patient denied any fever, chills, abdominal pain. Patient reports that he has been passing stool and gas. Vitals today were Temperature- 98.6, Pulse-66, Respiratory rate -18, Blood pressure 136/82. Spo2- 96. Patient is being discharged with recommendations to followup with Dr. Goins in 2 weeks and to keep keep the surgical site clean and dry. Continue monitoring for signs of fever, chills, abdominal pain. Pre Coder(s): General surgery consult was done by Dr. Goins Assessment Status post repair of strangulated ventral hernia with small bowel resection by Dr. Goins Plan May advance diet to full liquids but do not advance from there until patient is starts passing gas Colace 100 mg b.i.d. Patient encouraged to continue ambulating and aggressive IS exercises Continue using abdominal binder Continue with IV fluids and IV antibiotics At this point in time from surgical standpoint patient cleared for discharge once cleared medically Patient to refrain from lifting heavy objects Avoid constipation Increased water intake Follow up in two weeks with Dr. Goins's office Procedure(s): [place] [id number] [id number] Operative Note Patient Name: Lalito Wilson Unit Number: [id number] Date of : 1950 Patient Status: Admitted Inpatient Attending Doctor: Eros Soliz MD Operative Note Operative Note: DATE OF PROCEDURE: 05/29/25 SURGEON: YASMANY GOINS MD INFORMATION TECHNOLOGY DIRECTOR: [] ANESTHESIA: [] General ANESTHESIOLOGIST/SPRING MAKER: [] PREOPERATIVE DIAGNOSIS: [] Incarcerated umbilical hernia POSTOPERATIVE DIAGNOSIS: [] Strangulated umbilical hernia SYNOPSIS: [] PROCEDURE: [] Repair of a strangulated umbilical hernia Small-bowel resection ESTIMATED BLOOD LOSS: [] Minimal INDICATIONS: [] DESCRIPTION OF PROCEDURE: [] With the patient prepped in the usual fashion a periumbilical incision was done. Using cautery dissection I was able to get to the fascia and got into the incarceration of the umbilical hernia. There was some fluid in the immediately we retrieved a loop of small bowel that was already with small perforation. This was a Soto's type of hernia were only it was incarcerated partial bowel loops. I decided to do a resection and using WENDY 60 I transected the small bowel. The mesentery was clamped and divided. An area of about4 in of the small bowel was removed. I did a onyx-wz-bskh anastomosis with the WENDY 60 white stapler and closed the enterotomy with WENDY 60. I reinforced the anastomosis with a 3-0 silk and I closed the mesenteric defect with a 3-0 Vicryl. After irrigation I closed the hernia after removing the sac with a 2-0 Prolene interrupted suture. Approximated the subcutaneous tissue with a 2-0 Vicryl and the skin was closed with gretchen. We placed 20 cc of local anesthesia. The patient was stable do the procedure YASMANY GOINS MD May 29, 2025 11:[address] [id number] IMAGING REPORT Signed PATIENT: LALITO WILSON MR#: [id number] : 1950 SEX: M AGE: 75 LOCATION: S ORDER 40 STATUS: ADM IN REPORT#: [id number] SERVICE 36 REASON: preprocedural ORDERING PHYSICIAN: MEGHANN NEAL LACQUER MACHINE FEEDER PROCEDURE: CXR1VW - CHEST 1VW CHEST 1VW REASON: preprocedural COMPARISON: None. FINDINGS: Single view of the chest was obtained. Lungs are clear. There is hyperaeration along with flattening of both hemidiaphragms suggesting of chronic obstructive disease. Heart size is normal. There is no pulmonary vascular congestion. Mediastinum and bony thorax appear unremarkable. IMPRESSION: 1 . Chronic obstructive pulmonary disease 2. No evidence of airspace consolidation or pulmonary venous congestion DICTATED BY: FLOR ESTRELLA MD DATE: 05/27/25 1110 ELECTRONICALLY SIGNED BY: FLOR ESTRELLA MD DATE: 05/27/[address] [id number] IMAGING REPORT Signed PATIENT: LALITO WILSON MR#: [id number] : 1950 SEX: M AGE: 75 LOCATION: ED ORDER 150 STATUS: REG ER REPORT#: [id number] SERVICE 150 REASON: abdominal pain, hernia ORDERING PHYSICIAN: OLVIN DENISE MD PROCEDURE: ABD PEL W - CT ABDOMEN/PELVIS W/CONTRAST EXAM: CT Abdomen and Pelvis With Intravenous Contrast CLINICAL HISTORY: 75 year old male with abdominal pain and hernia TECHNIQUE: Axial computed tomography images of the abdomen and pelvis with intravenous contrast. Dose reduction technique was used including one or more of the following: automated exposure control, adjustment of mA and kV according to patient size, and/or iterative reconstruction. CONTRAST: With Intravenous Contrast COMPARISON: None provided. FINDINGS: LUNG BASES: No basilar airspace consolidation or pleural effusion. LIVER: Unremarkable. GALLBLADDER AND BILE DUCTS: Unremarkable. No calcified stone. No ductal dilation. PANCREAS: Unremarkable. SPLEEN: Unremarkable. ADRENAL GLANDS: Unremarkable. KIDNEYS, URETERS, AND BLADDER: Small bilateral to moderate-sized renal cysts, left greater than right. Symmetric excretion of contrast in both kidneys seen. Spiculated bladder mass in the left side of the bladder measuring 2.4 cm in diameter, suggestive of neoplasm such as transitional cell carcinoma. No hydronephrosis or nephrolithiasis. No ureteral calculi. STOMACH AND BOWEL: Large amount of stool in the colon. Sigmoid colon diverticulosis without diverticulitis. Fluid collection in the right side umbilical region is seen, measuring 2.9 cm in diameter, possible small incarcerated loop of small bowel as suggested on image number 38 of 101, correlate clinically. APPENDIX: Normal appendix seen. PERITONEUM: No free air. LYMPH NODES: No lymphadenopathy. REPRODUCTIVE: Unremarkable as visualized. VASCULATURE: No aortic aneurysm. ABDOMINAL WALL AND SOFT TISSUES: Unremarkable. BONES: Moderate to severe degenerative changes of the lower lumbar spine. No fracture or suspicious osseous abnormality. RECOMMENDATIONS: Cystoscopy and urologic consultation are recommended for further evaluation of the spiculated bladder mass. Nonemergent ultrasound is recommended for follow-up of the bilateral renal cysts. IMPRESSION: 1. Fluid collection in the right side umbilical region is seen, measuring 2.9 cm in diameter possible small incarcerated loop of small bowel as suggested on image number 38 of 101 correlate clinically 2. Spiculated bladder mass in the left side of the bladder measuring 2.4 cm in diameter Neoplasm such as transitional cell carcinoma. Recommend cystoscopy and urologic consultation 3. Large amount of stool in the colon 4. Small bilateral to moderate-sized bilateral renal cysts left greater than right follow up with nonemergent ultrasound /[place] DICTATED BY: NEETA GARNER MD DATE: 05/26/251847 ELECTRONICALLY SIGNED BY: NEETA GARNER MD DATE: 05/26/251847 Assessment/Plan: ASSESSMENT: s/p Repair of a strangulated umbilical hernia with Small-bowel resection POD 0 Incarcerated hernia, POA Bladder mass, POA Constipation, POA Discharge Instructions: Follow-up with PCP in 2-3 days Follow up with Dr. Goins in 2 weeks. Follow-up with PCP for bladder mass finding on CT Keep the surgical site clean and dry. Monitor for signs of fever, chills, abdominal pain, increased warmth on the incision site or drainage. and seek medial help incase you notice the above symptoms. Home Medications: Discontinued Scripts Ibuprofen (Ibuprofen 800 mg Tab) 800 Mg Tab, 800 MG PO Q8H PRN for fever or pain, #30 TAB 0 Refills Prov:SANGEETA PEPPERP 11/14/24 Mupirocin (Bactroban 2% Oint) 2 % Oint, 1 APPL TP TID for 5 Days, #15 GM 0 Refills apply to affected area(s) Prov:SANGEETA PEPPERP 11/14/24 Cephalexin (Cephalexin) 500 Mg Tablet, 1 TAB PO TID for 7 Days, #21 TAB 0 Refills Prov:SANGEETA PEPPER LACQUER MACHINE FEEDER 11/14/24 Medication Profile: No Active Prescriptions or Reported Meds Time spent arranging discharge: 31-60 minutes ATTESTATION BY PHYSICIAN I have seen and examined the patient. I reviewed the documentation, medical decision making, and treatment plan as noted by the resident physician above. I agree with the findings and plan of care. EROS SOLIZ MD, SHAJI MD Jun 02, 2025 17:25
== END 2025-06-02 17:24 | disposition home or self-care (01) | DRG 329 ==
LOC: EDH 14:08 → EDHIP 19:11 → 1MS 23:12
PROVIDERS: ADMIT Internal Medicine; ATTEND Internal Medicine
PROC: 0WQF0ZZ Repair Abdominal Wall, Open Approach (ICD-10-PCS; principal; 2025-05-29 10:54)
PROC: 0DB80ZZ Excision of Small Intestine, Open Approach (ICD-10-PCS; 2025-05-29 10:54)
DX: K42.0 Umbilical hernia with obstruction, without gangrene (principal); K63.1 Perforation of intestine (nontraumatic); K59.00 Constipation, unspecified; R22.9 Localized swelling, mass and lump, unspecified; N32.9 Bladder disorder, unspecified; R31.29 Other microscopic hematuria; Z88.0 Allergy status to penicillin; Z79.899 Other long term (current) drug therapy
CPT/HCPCS: 36415; 71045; 74177; 80048; 80053; 80076; 81001; 83605; 83690; 83735; 84100; 84484; 85025; 85027; 85610; 85730; 86850; 86900; 86901; 87086; 93005; 99291; A4450; J0360; J1100; J1171; J1956; J2003; J2250; J2270; J2405; J2704; J2710; J2795; J3010; J3480; J3490; J7120; Q9967; A4930; C1713; J0665; J1308

== ENCOUNTER 2025-07-07 06:32 | Observation (INO) | payer MEDICARE ==
[~2025-07-07] VITALS: Ht 180.3 cm; Wt 72.1 kg
--- NOTE | 2025-07-07 06:55 | ERN ---
General Chief Complaint: Abdominal Pain Stated Complaint: C/O ABD PAIN WITH N X V Time Seen by MD: 06:54 Source: patient History of Present Illness Initial Comments 75-year-old male who one month ago, 05/26/2025, underwent surgery for an incarcerated umbilical hernia. He comes today with abdominal pain and nausea and vomiting and concerns about a bowel obstruction. Of note the pain preceded the nausea and vomiting. Allergies: Coded Allergies: Penicillins (Unverified Allergy, Unknown, 11/14/24) Home Meds No Active Prescriptions or Reported Meds Past Medical History Past Medical History: No Pertinent History Past Surgical History: Other Surgical History Other: Umbilical HERNIA REPAIR with small bowel RESECTION Social History Social History: Negative Constitutional: (-) chills, (-) diaphoresis, (-) fever, (-) malaise, (-) w eakness, (-) other documentation EENTM: (-) eye pain, (-) blurred vision, (-) tearing, (-) double vision, (-) ear pain, (-) ear discharge, (-) nose pain, (-) nose congestion, (-) throat pain, (-) Throat swelling, (-) mouth pain, (-) tooth pain, (-) mouth swelling, (-) other documentation Respiratory: (-) cough, (-) orthopnea, (-) short of breath, (-) stridor, (-) wheezing, (-) other documentation Cardiovascular: (-) chest pain, (-) edema, (-) palpitations, (-) syncope, (-) dyspnea on exertion, (-) other documentation Gastrointestinal/Abdominal: (+) nausea, (+) vomiting, (+) abdominal pain, (+) abdominal distention Genitourinary: (-) penile discharge, (-) dysuria, (-) frequency, (-) hematuria, (-) pain, (-) other documentation Musculoskeletal: (-) Neck pain, (-) back pain, (-) Flank Pain, (-) joint pain, (-) joint swelling, (-) muscle pain, (-) muscle stiffness, (-) gout, (-) other documentation Skin: (-) laceration, (-) contusion, (-) abrasion, (-) abscess, (-) rash, (-) change in color, (-) change in hair, (-) change in nails, (-) diaphoresis, (-) dryness, (-) other documentation Neuro: (-) altered mental status, (-) headache, (-) syncope, (-) paralysis, (-) numbness, (-) seizure, (-) pre-existing deficit, (-) tremors, (-) weakness, (-) dizziness, (-) slurred speech, (-) vertigo, (-) other documentation Physical Exam General Appearance: (+) mild distress Orientation: (+) alert, (+) oriented x 3 Head/Face Trauma: No Eye: bilateral eye normal inspection, bilateral eye PERRL, bilateral eye EOMI Ear, Nose, Throat: (+) hearing grossly normal, (+) normal ENT inspection, (+) moist mucous membraine Neck: (+) normal inspection, (+) supple, (+) full range of motion Respiratory: (+) chest non-tender, (+) lungs clear, (+) well ventilated Heart: (+) regular Vascular: (+) no edema, (+) normal peripheral pulse Gastrointestinal: (+) soft, (+) distended, (+) abnormal bowel sounds Gastrointestinal Comment Surgical incision clean well healed no signs of infection. Results Laboratory and Microbiology Lab and Micro Result Laboratory Tests Test 07/07/25 07:25 07/07/25 10:06 White Blood Count 11.6 K/uL (4.8-10.8) H Red Blood Count 5.51 MIL/uL (4.50-6.20) Hemoglobin 16.0 g/dL (14.0-18.0) Hematocrit 45.3 % (42-54) Mean Corpuscular Volume 82.2 fL (79-99) Mean Corpuscular Hemoglobin 29.0 pg (27.0-33.0) Mean Corpuscular Hemoglobin Concent 35.3 g/dL (32.0-36.0) Red Cell Distribution Width 12.5 % (11.0-15.5) Platelet Count 223 K/uL (130-400) Mean Platelet Volume 8.8 fL (7.5-10.5) Immature Granulocyte % (Auto) 0.3 % (0-1) Neutrophils (%) (Auto) 85.4 % (40.0-77.0) H Lymphocytes (%) (Auto) 9.3 % (21.0-51.0) L Monocytes (%) (Auto) 4.6 % (3.0-13.0) Eosinophils (%) (Auto) 0.2 % (0.0-8.0) Basophils (%) (Auto) 0.2 % (0.0-5.0) Neutrophils # (Auto) 9.9 K/uL (1.8-7.7) H Lymphocytes # (Auto) 1.1 K/uL (1.0-4.8) Monocytes # (Auto) 0.5 K/uL (0.1-1.0) Eosinophils # (Auto) 0.02 K/uL (0.00-0.70) Basophils # (Auto) 0.02 K/uL (0.00-0.20) Absolute Immature Granulocyte (auto 0.03 K/uL (0-1) Nucleated Red Blood Cells 0.0 % (0.0-0.19) White Cell Morphology Comment See comments Sodium Level 138 mmol/L (136-145) Potassium Level 4.0 mmol/L (3.5-5.1) Chloride Level 99 mmol/L (101-111) L Carbon Dioxide Level 28 mmol/L (21-32) Blood Urea Nitrogen 22 mg/dL (7-18) H Creatinine 1.2 mg/dL (0.5-1.3) Glomerular Filtration Rate Calc 62 mL/min (>90) Random Glucose 124 mg/dL (70-105) H Lactic Acid Level 2.0 mmol/L (0.8-2.5) Total Calcium 9.3 mg/dL (8.5-10.1) Total Bilirubin 1.3 mg/dL (0.2-1.0) H Aspartate Amino Transf (AST/SGOT) 39 U/L (10-37) H Alanine Aminotransferase (ALT/SGPT) 21 U/L (12-78) Alkaline Phosphatase 77 U/L (50-136) Total Protein 7.3 g/dL (6.0-8.3) Albumin 3.7 g/dL (3.5-5.0) Urine Color YELLOW (YELLOW) Urine Appearance CLEAR (CLEAR) Urine pH 6.0 (5.0-8.0) Urine Specific [place] 1.025 (1.001-1.031) Urine Protein 10 mg/dL (NEGATIVE) H Urine Glucose (UA) NEGATIVE mg/dL (NEGATIVE) Urine Ketones 60 mg/dL (NEGATIVE) H Urine Occult Blood SMALL (NEGATIVE) H Urine Nitrate NEGATIVE (NEGATIVE) Urine Bilirubin NEGATIVE mg/dL (NEGATIVE) Urine Urobilinogen 0.2 mg/dL (0.2-1.0) Urine Leukocyte Esterase NEGATIVE Román/uL Urine RBC 11-25 /HPF (0-1) H Urine WBC 11-25 /HPF (0-1) H Urine Non-Squamous Epithelial Cells 3 /HPF (0-2) Urine Bacteria None /HPF (None Seen) MDM Based on exam and clinical history I am very suspicious of a small-bowel obstruction. We will order the usual labs start fluid resuscitation and do a CT scan with oral and IV contrast. MDM: Differential diagnosis: Rationale: Tests considered and ordered secondary to shared decision making include: labs, ECG and radiology Previous outside records reviewed: Old ER visits. Risk of complication and/or morbidity or mortality of patient management: None Medications-Per medication reconciliation Need for hospitalization: Patient does meet criteria for hospitalization. Need for emergency major/minor surgery: No There are no social concerns with this patient. Prescription drug management Prescriptions will include symptomatic care Patient's prior external medical records from other ER visits were reviewed by me as indicated. Prior testing and results from previous visits were reviewed. Prior tests were taken into account with medical decision making and resource utilization, independent historian/historians were used to obtain complete medical history. I independently interpreted the test that were performed, results were reviewed by me and considered findings on radiology if ordered. Medical management and examination interpretation discussions were had by me with other qualified healthcare professionals as indicated for the patient's care. 75-year-old male with the abdominal pain concern for small bowel obstruction handed off at shift change pending CT scan, CT scan does not show SBO however does show umbilical hernia with possible incarceration although exam is stable no acute distress admitting for surgical consult for further evaluation. ED Course Orders Procedure Category Date Status Time 12 Lead Ekg Tracing- EKG 07/07/25 Complete Technical 06:58 Cbc With Differential LAB 07/07/25 Complete 06:58 Comprehensive LAB 07/07/25 Complete Metabolic Panel 06:58 Lactic Acid LAB 07/07/25 Complete 06:58 Urinalysis Profile LAB 07/07/25 Complete 06:58 Lactated Ringers PHA 11/19/25 Complete 1000ml (Lactated 06:58 Morphine 2mg Syg PHA 07/07/25 Complete (Morphine 2mg Syg) 07:00 Ondansetron 4mg Inj PHA 07/07/25 Complete (Zofran 4mg Inj) 07:00 Diatr PHA 07/07/25 Complete Meglu/Diatrizoate 07:51 Ct Abd/Pel Wo Con CT 07/07/25 Resulted Renal/Appy 07:59 Culture Urine CHINO 07/07/25 In Process 11:10 Current Medications Medications (Trade) Dose Ordered Sig/Cheikh Route PRN Reason Start Time Stop Time Status Last Admin Dose Admin Diatrizoate Meglum/ Diatrizoate Sod (Gastrografin 66-10 Solution) 30 ml STK-MED ONCE .ROUTE 07/07/25 07:51 07/07/25 07:51 DC Lactated Ringer's (Lactated Ringers 1000ml) 1,000 ml BOLUS STAT IV 07/07/25 06:58 07/07/25 07:05 DC 07/07/25 07:46 Morphine Sulfate (morPHINE 2MG SYG) 2 mg ONCE ONCE IVP 07/07/25 07:00 07/07/25 07:04 DC 07/07/25 07:46 Ondansetron HCl (zoFRAN 4MG INJ) 4 mg ONCE ONCE IVP 07/07/25 07:00 07/07/25 07:04 DC 07/07/25 07:46 Vital Signs Date Time Temp Pulse Resp B/P (MAP) Pulse Ox O2 Delivery O2 Flow Rate FiO2 07/07/25 07:50 98.2 65 19 158/78 97 Room Air* 0 21 07/07/25 06:34 97.3 78 20 173/90 97 Room Air DX & DISP Disposition: Inpatient Departure Impression: Primary Impression: Umbilical hernia, incarcerated Additional Impression: Intractable abdominal pain Condition: Stable Scripts No Active Prescriptions or Reported Meds Referrals: YASMANY PUCKETT MD (PCP) LUDY BUTTS MD Jul 07, 2025 06:55 EKTA COWAN MD Jul 07, 2025 12:25
[2025-07-07 07:33] LABS: IMMATURE GRANULOCYTE ABSOLUTE 0.03 K/uL (0-1); NUCLEATED RED BLOOD CELLS 0.0 % (0.0-0.19); PLATELET COUNT (AUTO) 223 K/uL (130-400); RED BLOOD CELL COUNT(AUTO) 5.51 MIL/uL (4.50-6.20); RED CELL DISTRIBUTION WIDTH 12.5 % (11.0-15.5); WHITE BLOOD COUNT (AUTO) 11.6 K/uL (4.8-10.8)
[2025-07-07 07:43] LABS: CREATININE 1.2 mg/dL (0.5-1.3); GLOMERULAR FILTR. RATE CALC 62.0 mL/min (>90); GLUCOSE,RANDOM 124.0 mg/dL (70-105); SODIUM SERUM 138.0 mmol/L (136-145); UREA NITROGEN, BLOOD 22.0 mg/dL (7-18)
[2025-07-07] MEDS: LACTATED RINGERS 1000ML IV STA (07:46)
[2025-07-07 07:48] LABS: ASPARTATE AMINOTRANSFERASE 39.0 U/L (10-37); TOTAL PROTEIN, SERUM 7.3 g/dL (6.0-8.3)
[2025-07-07] MEDS ORDERED: DIATR MEGLU/DIATRIZOATE SODIUM 30 ML BOTTLE ONE (07:51)
--- NOTE | 2025-07-07 09:02 | HMCIMG ---
EXAM: CT Abdomen and Pelvis With Intravenous Contrast CLINICAL HISTORY: 75 year old male with abdominal pain and hernia. To rule out SBO. TECHNIQUE: Axial computed tomography images of the abdomen and pelvis without intravenous contrast. CONTRAST: None COMPARISON: CT abdomen dated 05/27/25 FINDINGS: LUNG BASES: No basilar airspace consolidation or pleural effusion. LIVER: Unremarkable. GALLBLADDER AND BILE DUCTS: Unremarkable. No calcified stone. No ductal dilation. PANCREAS: Unremarkable. SPLEEN: Unremarkable. ADRENAL GLANDS: Unremarkable. KIDNEYS, URETERS, AND BLADDER: Small bilateral to moderate-sized renal cysts, left greater than right. No hydronephrosis or nephrolithiasis. No ureteral calculi. The urinary bladder is partially distended. The prior urinary bladder neoplasm is not well delineated on the present evaluation. STOMACH AND BOWEL: Sigmoid colon diverticulosis without diverticulitis. Fluid collection in the right side umbilical region is seen, measuring currently 2.6 cm in diameter, possible small incarcerated loop of small bowel. No closed loop obstruction. Small bowel loops measure 2.8cm in maximal caliber. APPENDIX: Normal appendix seen. PERITONEUM: No free air. LYMPH NODES: No lymphadenopathy. REPRODUCTIVE: Unremarkable as visualized. VASCULATURE: No aortic aneurysm. ABDOMINAL WALL AND SOFT TISSUES: Unremarkable. BONES: Moderate to severe degenerative changes of the lower lumbar spine. No fracture or suspicious osseous abnormality. IMPRESSION: Fluid collection in the right side umbilical region is seen, measuring 2.6 cm in diameter, possibly small incarcerated loop of small bowel. No closed loop obstruction. Small bowel loops measure 2.8cm in maximal caliber. Small bilateral to moderate-sized bilateral renal cysts left greater than right; follow up with nonemergent ultrasound /[place]
[2025-07-07 11:03] LABS: APPEARANCE,URINE CLEAR (CLEAR); GLUCOSE, URINE (UA) NEGATIVE (NEGATIVE); LEUKOCYTE ESTERASE ,URINE NEGATIVE Leu/uL (NEGATIVE); NITRATE,URINE NEGATIVE (NEGATIVE); OCCULT BLOOD,URINE SMALL (NEGATIVE)
[2025-07-07 11:06] LABS: ADD UA MICROSCOPIC YES
[2025-07-07 11:08] LABS: NON-SQUAMOUS EPITHELIAL CELL 3 /HPF (0-2)
--- NOTE | 2025-07-07 11:59 | EKG ---
[facility] Test Date: 2025-07-07 Test Time: 07:23:38 Pat Name: LAUREL WRIGHT Department: EDHIP Room: 112 Gender: M Pearl Stringer: [id number] : 1950 Requested By: LUDY BUTTS Order Number: [id number] Reading MD: Ashvin Patel Measurements Intervals [place] Rate: 65 P: 18 IA: 212 QRS: 53 QRSD: 89 T: 58 QT: 427 QTc: 446 Interpretive Statements Sinus rhythm Borderline prolonged IA interval Compared to ECG 05/26/2025 15:10:05 Myocardial infarct finding no longer present Electronically Signed On 07-07-2025 18:35:42 LIFE ENRICHMENT DIRECTOR by Ashvin Patel Please click the below link to view image of tracing.
--- NOTE | 2025-07-07 13:56 | NUR ---
DCP: HOME Pt and Birgit Lopez [age] live in home they own. Pt states he remains very active and independent. Requires no assistance with ADLS or IADLS, ambulation or transportation. PCP is Maulik and uses [facility] [address] for rx needs. P denies dc needs and states he will return home at dc
--- NOTE | 2025-07-07 14:50 | HP ---
[facility] HISTORY AND PHYSICAL Date of Service: Jul 07, 2025 Time of Service: 14:38 HISTORY OF PRESENT ILLNESS: [This is a 75-year-old male with a history of incarcerated hernia, status post repair of strangulated umbilical hernia and small bowel resection performed on 05/29/[address] Kike Garcia. The patient reports that he had been recovering well postoperatively until approximately 34 days ago, when he began experiencing lower back pain radiating to the abdomen. He describes associated symptoms of nausea and multiple episodes of vomiting, with inability to tolerate oral intake. He contacted his general surgeon, who recommended outpatient imaging; however, due to worsening and intolerable pain last night, he presented to the emergency department for further evaluation. On arrival to the ED, initial vital signs were: temperature 97.3F, pulse 78, respiratory rate 20, blood pressure 173/90, and oxygen saturation 98% on room air. Laboratory studies revealed WBC 11.6, hemoglobin 16, hematocrit 45.3, sodium 138, chloride 99, BUN 22, creatinine 1.2, random glucose 124, total bilirubin 1.3, AST 39, and urinalysis notable for small occult blood. CT abdomen and pelvis demonstrated a right periumbilical fluid collection measuring 2.6 cm with a possible small incarcerated loop of small bowel, as well as [id number] bilateral renal cysts (left greater than right). At the time of evaluation in the ED, the patient was accompanied by his and reported no current pain after receiving IV morphine, which provided s ignificant relief. He was referred to the hospitalist service for further evaluation and management.] REVIEW OF SYSTEMS CONSTITUTIONAL: Denies fevers, chills, or night sweats. No unintentional weight loss reported. NEUROLOGICAL: Denies headache, amaurosis fugax, motor weakness, sensory deficit, vertigo/spinning sensation, gait abnormalities, or tremors. ENT: No hearing loss, otalgia, otorrhea, rhinitis, rhinorrhea, hoarseness, or sore throat. CARDIOVASCULAR: Denies any exertional angina, dyspnea on exertion, orthopnea, paroxysmal nocturnal dyspnea, palpitations, life-threatening arrhythmias, claudication. PULMONARY: Denies any shortness of breath, cough, phlegm/sputum, hemoptysis, pleuritic chest pain. SLEEP: Denies morning headaches, daytime somnolence or napping. Denies difficulty falling asleep, staying asleep, waking from sleep. Denies knowledge of snoring. GASTROINTESTINAL: Denies any type of dysphagia to either liquids or solids. Denies nausea, vomiting, pyrosis, early satiety, abdominal pain, diarrhea, constipation, or changes in stool consistency or caliber. Denies coffee-ground emesis, hematemesis, hematochezia, or melanotic stools. GENITOURINARY: Denies frequency, urgency, nocturia, hematuria or incontinence (Storage/Irritative symptoms.) Low urinary stream, straining to void, urinary intermittency or hesitancy, splitting of the voiding stream, terminal dribbling. ENDOCRINOLOGIC: Denies polyuria, polydipsia, polyphagia or heat/cold intolerances. HEMATOLOGIC: Denies thrombophilia/previous clots, or coagulopathy/bleeding disorders. ONCOLOGIC: Denies personal history of malignancy. DERMATOLOGIC: Denies rashes or pruritus. PSYCHIATRIC: Denies any suicidal or homicidal ideation. Denies hallucinations. PAST MEDICAL HISTORY: [ Strangulated hernia ] PAST SURGICAL HISTORY: [Status post hernia repair with bowel resection 05/29/2025 ] PAST SOCIAL HISTORY: [Patient is for 56 years , retired, denies tobacco, alcohol or illicit drug use ] FAMILY HISTORY: [ Noncontributory ] Coded Allergies: Penicillins (Unverified Allergy, Unknown, 11/14/24) PHYSICAL EXAM GENERAL APPEARANCE: The patient is awake, alert, and oriented, in no acute cardiopulmonary distress. NEUROLOGICAL: Cranial nerves II-XII grossly intact. Motor is 5/5 in bilateral upper and lower extremities proximal to distal. No sensory deficits. HEENT: Face is symmetric. Pupils are equal and reactive. Extraocular movements are intact. NECK: Supple. No JVD. No thyromegaly. No submental, submandibular, pre-/post auricular, occipital or supraclavicular lymphadenopathy. CHEST: Normal chest expansion. No Telemetry. LUNGS: Absence of any rales, rhonchi or any wheezing. CARDIOVASCULAR: Regular. S1 and S2 normal. No appreciable rubs, murmurs or gallops. ABDOMEN: Soft, nontender, and nondistended. There is no rebound, voluntary guarding, or rigidity. : Deferred. No Freire. EXTREMITIES: Non-edematous and not cyanotic. No clubbing. Good capillary refill. SKIN: No skin breakdown. Vital Sign (Last 24 Hours) 07/07/25 11:55 Temp 98.4 Pulse 69 Resp 17 B/P (MAP) 127/77 Pulse Ox 98 O2 Delivery Room Air* O2 Flow Rate 0 FiO2 21 LABS: Laboratory: Test 07/07/25 10:06 07/07/25 07:25 Range/Units Urine Color YELLOW YELLOW Urine Appearance CLEAR CLEAR Urine pH 6.0 5.0-8.0 Urine Specific [place] 1.025 1.001-1.031 Urine Protein 10 H NEGATIVE mg/dL Urine Glucose (UA) NEGATIVE NEGATIVE mg/dL Urine Ketones 60 H NEGATIVE mg/dL Urine Occult Blood SMALL H NEGATIVE Urine Nitrate NEGATIVE NEGATIVE Urine Bilirubin NEGATIVE NEGATIVE mg/dL Urine Urobilinogen 0.2 0.2-1.0 mg/dL Urine Leukocyte Esterase NEGATIVE NEGATIVE Román/uL Urine RBC 11-25 H 0-1 /HPF Urine WBC 11-25 H 0-1 /HPF Urine Non-Squamous Epithelial Cells 3 0-2 /HPF Urine Bacteria None None Seen /HPF White Blood Count 11.6 H 4.8-10.8 K/uL Red Blood Count 5.51 4.50-6.20 MIL/uL Hemoglobin 16.0 14.0-18.0 g/dL Hematocrit 45.3 42-54 % Mean Corpuscular Volume 82.2 79-99 fL Mean Corpuscular Hemoglobin 29.0 27.0-33.0 pg Mean Corpuscular Hemoglobin Concent 35.3 32.0-36.0 g/dL Red Cell Distribution Width 12.5 11.0-15.5 % Platelet Count 223 130-400 K/uL Mean Platelet Volume 8.8 7.5-10.5 fL Immature Granulocyte % (Auto) 0.3 0-1 % Neutrophils (%) (Auto) 85.4 H 40.0-77.0 % Lymphocytes (%) (Auto) 9.3 L 21.0-51.0 % Monocytes (%) (Auto) 4.6 3.0-13.0 % Eosinophils (%) (Auto) 0.2 0.0-8.0 % Basophils (%) (Auto) 0.2 0.0-5.0 % Neutrophils # (Auto) 9.9 H 1.8-7.7 K/uL Lymphocytes # (Auto) 1.1 1.0-4.8 K/uL Monocytes # (Auto) 0.5 0.1-1.0 K/uL Eosinophils # (Auto) 0.02 0.00-0.70 K/uL Basophils # (Auto) 0.02 0.00-0.20 K/uL Absolute Immature Granulocyte (auto 0.03 0-1 K/uL Nucleated Red Blood Cells 0.0 0.0-0.19 % White Cell Morphology Comment See comments Sodium Level 138 136-145 mmol/L Potassium Level 4.0 3.5-5.1 mmol/L Chloride Level 99 L 101-111 mmol/L Carbon Dioxide Level 28 21-32 mmol/L Blood Urea Nitrogen 22 H 7-18 mg/dL Creatinine 1.2 0.5-1.3 mg/dL Glomerular Filtration Rate Calc 62 >90 mL/min Random Glucose 124 H 70-105 mg/dL Lactic Acid Level 2.0 0.8-2.5 mmol/L Total Calcium 9.3 8.5-10.1 mg/dL Total Bilirubin 1.3 H 0.2-1.0 mg/dL Aspartate Amino Transf (AST/SGOT) 39 H 10-37 U/L Alanine Aminotransferase (ALT/SGPT) 21 12-78 U/L Alkaline Phosphatase 77 50-136 U/L Total Protein 7.3 6.0-8.3 g/dL Albumin 3.7 3.5-5.0 g/dL Current Medications Medications (Trade) Dose Ordered Sig/Cheikh Route PRN Reason Start Time Stop Time Status Last Admin Dose Admin Acetaminophen (TYLenol 650MG SUPPOSITORY) 650 mg Q4H PRN RC TEMPERATURE GREATER THAN 101.5 07/07/25 12:00 08/06/25 11:59 Acetaminophen (TYLenol 650MG SUPPOSITORY) 650 mg Q6H PRN RC MILD PAIN (1-3) 07/07/25 12:00 08/06/25 11:59 Lactated Ringer's (Lactated Ringers 1000ml) 1,000 ml BOLUS STAT IV 07/07/25 06:58 07/07/25 07:05 DC 07/07/25 07:46 1,000 ML Ondansetron HCl (zoFRAN 4MG INJ) 4 mg Q6H PRN IVP NAUSEA/VOMITING 07/07/25 12:00 08/06/25 11:59 DIAGNOSTICS / RADIOLOGY: [ ] ASSESSMENT: [Abdominal pain with history of recent strangulated umbilical hernia repair and small bowel resection (05/29/2025) -New onset lower back pain radiating to abdomen, associated with nausea and vomiting, unable to tolerate oral intake. ] Possible small bowel incarceration -CT shows right periumbilical fluid collection (2.6 cm) with possible small incarcerated loop of small bowel; no closed loop obstruction at this time. Postoperative status -Recent abdominal surgery (hernia repair and small bowel resection) with risk for postoperative complications (adhesions, recurrent hernia, infection, or obstruction). Acute kidney injury or prerenal azotemia (mild) -BUN 22, creatinine 1.2, likely multifactorial (volume depletion from vomiting, possible underlying renal cysts). Bilateral renal cysts (left > right) -Incidental finding on CT; recommend outpatient follow-up with renal ultrasound. Mild leukocytosis -WBC 11.6, may be related to recent surgery, possible infection, or stress response. Hypertension -BP 173/90 on presentation. Hematuria (microscopic) -Small occult blood on urinalysis; etiology unclear, possibly related to renal cysts or recent surgery. History of urinary bladder neoplasm -Not well delineated on current imaging; consider ongoing surveillance. PLAN: [Disposition: -Admit to medical-surgical floor for close monitoring. Diet: -NPO (nothing by mouth) status to rest the bowel and in anticipation of possible surgical intervention. Consults: -General surgery consult for evaluation of possible small bowel incarceration and postoperative complications. IV Fluids -Initiate IV fluids: Lactated Ringers at 75 mL/hr for hydration and to address possible volume depletion from vomiting. Pain Management -Continue pain control as needed (e.g., IV morphine or other appropriate analgesics), titrated to effect and reassess frequently. Monitoring -Serial abdominal exams to monitor for signs of evolving obstruction, peritonitis, or clinical deterioration. -Monitor vital signs, intake/output, and laboratory parameters (CBC, BMP, lactate as indicated). Additional Orders -Maintain NPO status until further evaluation by surgery. -Consider antiemetics for nausea/vomiting as needed. -Freire catheter if unable to void or for strict monitoring of urine output. Renal Cysts -Outpatient follow-up with renal ultrasound for bilateral renal cysts (not an acute issue). Other -Continue home medications as appropriate, except those contraindicated while NPO or in the setting of acute illness. -DVT prophylaxis per hospital protocol. Patient is a full code Discussed plans with the attending, above plan was formulated ADVANCED CARE PLANNING 1. Which of the following were discussed? Hospice Care - Yes / No Therapeutic options - Yes / No Advance Directives - Yes / No Other discussions - 2. Discussed with who? Patient 3. Voluntary nature of this service was explained to the patient? Yes / No 4. Amount of time spent - __20 mins 5. Reviewed by Physician? (if this service was performed by NPP) Yes / No ] ATTESTATION BY PHYSICIAN I have seen and examined the patient. I reviewed the documentation, medical decision making, and treatment plan as noted by the mid-level provider above. I agree with the findings and plan of care. Ulises Giang IV, MD, [facility] Jul 07, 2025 14:50
[2025-07-07] MEDS: LACTATED RINGERS 1000ML 1,000 ML IV SCH (15:01)
[2025-07-07 17:11] VITALS: O2SAT 98
[2025-07-07 20:00] VITALS: BP 152/81; PULSE 63; RESP 18; TEMP 98
[2025-07-08] VITALS (7 sets, daily range): BP systolic 132–156; BP diastolic 75–80; PULSE 55–69; RESP 16–20; TEMP 97.8–98.4; O2SAT 98
[2025-07-08 10:27] LABS: NUCLEATED RED BLOOD CELLS 0.0 % (0.0-0.19); PLATELET COUNT (AUTO) 178.0 K/uL (130-400); RED BLOOD CELL COUNT(AUTO) 4.97 MIL/uL (4.50-6.20); RED CELL DISTRIBUTION WIDTH 12.6 % (11.0-15.5); WHITE BLOOD COUNT (AUTO) 8.1 K/uL (4.8-10.8)
[2025-07-08 10:39] LABS: CREATININE 1.1 mg/dL (0.5-1.3); GLOMERULAR FILTR. RATE CALC 69.0 mL/min (>90); GLUCOSE,RANDOM 80.0 mg/dL (70-105); SODIUM SERUM 139.0 mmol/L (136-145); UREA NITROGEN, BLOOD 23.0 mg/dL (7-18)
[2025-07-08 10:43] LABS: ASPARTATE AMINOTRANSFERASE 26.0 U/L (10-37); TOTAL PROTEIN, SERUM 6.1 g/dL (6.0-8.3)
--- NOTE | 2025-07-08 13:09 | PN ---
[facility] PROGRESS NOTE Date of Service: Jul 08, 2025 Time of Service: 12:51 SUBJECTIVE: [This is a 75-year-old male admitted due to abdominal pain status post hernia repair due to strangulated hernia. The CT came back with fluid collection in the right side umbilical region, measuring 2.6 cm in diameter, possibly small incarcerated loop of small bowel. No close loop obstruction. Small bowel loops measure 2.8 cm in maximal caliber. Small bilateral to moderate sized bilateral cyst to the left greater than right. Patient was evaluated this morning, his abdominal pain has resolved. But he continues with leukocytosis though downtrending. Patient was started with Levaquin and Flagyl at this time. We will follow up with further recommendations from the general surgeon. Labs reviewed, his potassium is 3.3 we will be covering per protocol. We will keep patient NPO unless otherwise recommended by general surgeon. ] REVIEW OF SYSTEMS CONSTITUTIONAL: Denies fevers, chills, or night sweats. No unintentional weight loss reported. NEUROLOGICAL: Denies headache, amaurosis fugax, motor weakness, sensory deficit, vertigo/spinning sensation, gait abnormalities, or tremors. ENT: No hearing loss, otalgia, otorrhea, rhinitis, rhinorrhea, hoarseness, or sore throat. CARDIOVASCULAR: Denies any exertional angina, dyspnea on exertion, orthopnea, paroxysmal nocturnal dyspnea, palpitations, life-threatening arrhythmias, claudication. PULMONARY: Denies any shortness of breath, cough, phlegm/sputum, hemoptysis, p leuritic chest pain. SLEEP: Denies morning headaches, daytime somnolence or napping. Denies difficulty falling asleep, staying asleep, waking from sleep. Denies knowledge of snoring. GASTROINTESTINAL: Denies any type of dysphagia to either liquids or solids. Denies nausea, vomiting, pyrosis, early satiety, abdominal pain, diarrhea, constipation, or changes in stool consistency or caliber. Denies coffee-ground emesis, hematemesis, hematochezia, or melanotic stools. GENITOURINARY: Denies frequency, urgency, nocturia, hematuria or incontinence (Storage/Irritative symptoms.) Low urinary stream, straining to void, urinary intermittency or hesitancy, splitting of the voiding stream, terminal dribbling. ENDOCRINOLOGIC: Denies polyuria, polydipsia, polyphagia or heat/cold intoler ances. HEMATOLOGIC: Denies thrombophilia/previous clots, or coagulopathy/bleeding disorders. ONCOLOGIC: Denies personal history of malignancy. DERMATOLOGIC: Denies rashes or pruritus. PSYCHIATRIC: Denies any suicidal or homicidal ideation. Denies hallucinations. PHYSICAL EXAM GENERAL APPEARANCE: The patient is awake, alert, and oriented, in no acute cardiopulmonary distress. NEUROLOGICAL: Cranial nerves II-XII grossly intact. Motor is 5/5 in bilateral upper and lower extremities proximal to distal. No sensory deficits. HEENT: Face is symmetric. Pupils are equal and reactive. Extraocular movements are intact. NECK: Supple. No JVD. No thyromegaly. No submental, submandibular, pre- /postauricular, occipital or supraclavicular lymphadenopathy. CHEST: Normal chest expansion. No Telemetry. LUNGS: Absence of any rales, rhonchi or any wheezing. CARDIOVASCULAR: Regular. S1 and S2 normal. No appreciable rubs, murmurs or gallops. ABDOMEN: Soft, nontender, and nondistended. There is no rebound, voluntary guarding, or rigidity. : Deferred. No Freire. EXTREMITIES: Non-edematous and not cyanotic. No clubbing. Good capillary refill. SKIN: No skin breakdown. Vital Signs (last 8hr) Date Time Temp Pulse Resp B/P (MAP) Pulse Ox O2 Delivery O2 Flow Rate FiO2 07/08/25 11:30 97.9 66 20 134/80 98 Room Air 21 07/08/25 08:00 98 Room Air* 0 21 07/08/25 07:48 98.1 66 19 132/80 95 Room Air 21 LABS: Laboratory: Test 07/08/25 10:08 07/07/25 10:06 07/07/25 07:25 Range/Units White Blood Count 8.1 4.8-10.8 K/uL Red Blood Count 4.97 4.50-6.20 MIL/uL Hemoglobin 14.3 14.0-18.0 g/dL Hematocrit 42.1 42-54 % Mean Corpuscular Volume 84.7 79-99 fL Mean Corpuscular Hemoglobin 28.8 27.0-33.0 pg Mean Corpuscular Hemoglobin Concent 34.0 32.0-36.0 g/dL Red Cell Distribution Width 12.6 11.0-15.5 % Platelet Count 178 130-400 K/uL Mean Platelet Volume 8.8 7.5-10.5 fL Nucleated Red Blood Cells 0.0 0.0-0.19 % Sodium Level 139 136-145 mmol/L Potassium Level 3.6 3.5-5.1 mmol/L Chloride Level 102 101-111 mmol/L Carbon Dioxide Level 28 21-32 mmol/L Blood Urea Nitrogen 23 H 7-18 mg/dL Creatinine 1.1 0.5-1.3 mg/dL Glomerular Filtration Rate Calc 69 >90 mL/min Random Glucose 80 70-105 mg/dL Total Calcium 8.3 L 8.5-10.1 mg/dL Magnesium Level 2.00 1.80-2.40 mg/dL Total Bilirubin 1.1 H 0.2-1.0 mg/dL Aspartate Amino Transf (AST/SGOT) 26 10-37 U/L Alanine Aminotransferase (ALT/SGPT) 17 12-78 U/L Alkaline Phosphatase 64 50-136 U/L Total Protein 6.1 6.0-8.3 g/dL Albumin 3.0 L 3.5-5.0 g/dL Urine Color YELLOW YELLOW Urine Appearance CLEAR CLEAR Urine pH 6.0 5.0-8.0 Urine Specific [place] 1.025 1.001-1.031 Urine Protein 10 H NEGATIVE mg/dL Urine Glucose (UA) NEGATIVE NEGATIVE mg/dL Urine Ketones 60 H NEGATIVE mg/dL Urine Occult Blood SMALL H NEGATIVE Urine Nitrate NEGATIVE NEGATIVE Urine Bilirubin NEGATIVE NEGATIVE mg/dL Urine Urobilinogen 0.2 0.2-1.0 mg/dL Urine Leukocyte Esterase NEGATIVE NEGATIVE Román/uL Urine RBC 11-25 H 0-1 /HPF Urine WBC 11-25 H 0-1 /HPF Urine Non-Squamous Epithelial Cells 3 0-2 /HPF Urine Bacteria None None Seen /HPF Immature Granulocyte % (Auto) 0.3 0-1 % Neutrophils (%) (Auto) 85.4 H 40.0-77.0 % Lymphocytes (%) (Auto) 9.3 L 21.0-51.0 % Monocytes (%) (Auto) 4.6 3.0-13.0 % Eosinophils (%) (Auto) 0.2 0.0-8.0 % Basophils (%) (Auto) 0.2 0.0-5.0 % Neutrophils # (Auto) 9.9 H 1.8-7.7 K/uL Lymphocytes # (Auto) 1.1 1.0-4.8 K/uL Monocytes # (Auto) 0.5 0.1-1.0 K/uL Eosinophils # (Auto) 0.02 0.00-0.70 K/uL Basophils # (Auto) 0.02 0.00-0.20 K/uL Absolute Immature Granulocyte (auto 0.03 0-1 K/uL White Cell Morphology Comment See comments Lactic Acid Level 2.0 0.8-2.5 mmol/L Current Medications Medications (Trade) Dose Ordered Sig/Cheikh Route PRN Reason Start Time Stop Time Status Last Admin Dose Admin Acetaminophen (TYLenol 650MG SUPPOSITORY) 650 mg Q4H PRN RC TEMPERATURE GREATER THAN 101.5 07/07/25 12:00 08/06/25 11:59 Acetaminophen (TYLenol 650MG SUPPOSITORY) 650 mg Q6H PRN RC MILD PAIN (1-3) 07/07/25 12:00 08/06/25 11:59 Hydralazine HCl (APRESOLine 20MG INJ) 5 mg Q6H PRN IV ADMINISTER FOR SBP > 160 07/07/25 15:00 08/06/25 14:59 Lactated Ringer's 1,000 ml @ 75 mls/hr [id number] IV 07/07/25 15:00 08/06/25 14:59 07/08/25 04:20 75 MLS/HR Lactated Ringer's (Lactated Ringers 1000ml) 1,000 ml BOLUS STAT IV 07/07/25 06:58 07/07/25 07:05 DC 07/07/25 07:46 1,000 ML Levofloxacin/ Dextrose 100 ml @ 100 mls/hr Q24H IV 07/08/25 10:00 07/18/25 09:59 07/08/25 10:41 100 MLS/HR Metronidazole/ Sodium Chloride 100 ml @ 100 mls/hr Q8H6 IVPB 07/08/25 14:00 07/18/25 13:59 Morphine Sulfate (morPHINE 2MG SYG) 2 mg Q4H PRN IVP SEVERE PAIN (7-10) 07/07/25 15:00 07/14/25 14:59 07/07/25 14:48 2 MG Ondansetron HCl (zoFRAN 4MG INJ) 4 mg Q6H PRN IVP NAUSEA/VOMITING 07/07/25 12:00 08/06/25 11:59 07/07/25 14:48 4 MG DIAGNOSTICS / RADIOLOGY: [ ] ASSESSMENT: [Hypokalemia, POA -Potassium 3.3 Abdominal pain with history of recent strangulated umbilical hernia repair and small bowel resection (05/29/2025) -New onset lower back pain radiating to abdomen, associated with nausea and vomiting, unable to tolerate oral intake. ] Possible small bowel incarceration -CT shows right periumbilical fluid collection (2.6 cm) with possible small incarcerated loop of small bowel; no closed loop obstruction at this time. Postoperative status -Recent abdominal surgery (hernia repair and small bowel resection) with risk for postoperative complications (adhesions, recurrent hernia, infection, or obstruction). Acute kidney injury or prerenal azotemia (mild) -BUN 22, creatinine 1.2, likely multifactorial (volume depletion from vomiting, possible underlying renal cysts). Bilateral renal cysts (left > right) -Incidental finding on CT; recommend outpatient follow-up with renal ultrasound. Mild leukocytosis. resolved -WBC 11.6, may be related to recent surgery, possible infection, or stress response. Hypertension -BP 173/90 on presentation. Hematuria (microscopic) -Small occult blood on urinalysis; etiology unclear, possibly related to renal cysts or recent surgery. History of urinary bladder neoplasm -Not well delineated on current imaging; consider ongoing surveillance. PLAN: [Disposition: -continue to medical-surgical floor for close monitoring. Diet: -TKA NPO (nothing by mouth) status to rest the bowel and in anticipation of possible surgical intervention. Consults: -General surgery consult for evaluation of possible small bowel incarceration and postoperative complications. IV Fluids -Initiate IV fluids: Lactated Ringers at 75 mL/hr for hydration and to address possible volume depletion from vomiting. Pain Management -Continue pain control as needed (e.g., IV morphine or other appropriate analgesics), titrated to effect and reassess frequently. Monitoring -Serial abdominal exams to monitor for signs of evolving obstruction, peritonitis, or clinical deterioration. -Monitor vital signs, intake/output, and laboratory parameters (CBC, BMP, lactate as indicated). Additional Orders -Maintain NPO status until further evaluation by surgery. -Consider antiemetics for nausea/vomiting as needed. -Freire catheter if unable to void or for strict monitoring of urine output. Renal Cysts -Outpatient follow-up with renal ultrasound for bilateral renal cysts (not an acute issue). Other -Continue home medications as appropriate, except those contraindicated while NPO or in the setting of acute illness. -DVT prophylaxis per hospital protocol. -Patient started with Levaquin and flagyl 2/2 leukocytosis Patient is a full code Discussed plans with the attending, above plan was formulated ATTESTATION BY PHYSICIAN I have seen and examined the patient. I reviewed the documentation, medical decision making, and treatment plan as noted by the mid-level provider above. I agree with the findings and plan of care. BHUMI PEREZ MD, [facility] Jul 08, 2025 13:09
--- NOTE | 2025-07-08 14:22 | NUR ---
PATIENT REPORTS NO HOME MEDICATIONS.
--- NOTE | 2025-07-08 16:18 | PN ---
This is a 75-year-old male status post umbilical hernia repair with concerns of small bowel obstruction Interval history: This 75-year-old male seen in his room resting No abdominal pain reported at this time Patient with multiple episodes of flatus Abdomen soft nontender WBCs improving No distention noted Physical exam General: Awake alert and oriented Heart: Regular rate and rhythm} Lungs: [Clear to auscultation no distress Abdomen: [Soft, nontender, nondistended Assessment : This is a 75-year-old male with what appears to be resolving small-bowel obstruction Plan: From surgical standpoint we will outpatient clear liquids KUB to be ordered Surgical team to follow patient No immediate surgical intervention planned Dr. Goins to be updated in patient's status and surgical team to follow patient closely Surgical case has been discussed with my supervising physician in the above plan was formulated and agreed upon We appreciate the hospitalist team for us to participate in patient's care. Greater than 45 minutes of time spent patient, reviewing chart, working on documentation Surgical case has been discussed with my supervising physician in the above plan was formulated and agreed upon Supervising physicians evaluation the patient be done within next 24 hours We appreciate the hospitalist team for us to participate in patient's care. Greater than 55 minutes of time spent patient, reviewing chart, working on documentation Vitals/Labs Vital Signs Date Time Temp Pulse Resp B/P (MAP) Pulse Ox O2 Delivery O2 Flow Rate FiO2 07/08/25 15:47 98.4 57 20 155/75 94 Room Air 21 07/08/25 08:00 0 Laboratory Tests 07/08/25 10:08 Medications Current Medications Lactated Ringer's 1,000 ml BOLUS STAT IV Last administered on 07/07/25at 07:46; Start 07/07/25 at 06:58; Stop 07/07/25 at 07:05; Status DC Morphine Sulfate 2 mg ONCE ONCE IVP Last administered on 07/07/25at 07:46; Start 07/07/25 at 07:00; Stop 07/07/25 at 07:04; Status DC Ondansetron HCl 4 mg ONCE ONCE IVP Last administered on 07/07/25at 07:46; Start 07/07/25 at 07:00; Stop 07/07/25 at 07:04; Status DC Diatrizoate Meglum/ Diatrizoate Sod 30 ml STK-MED ONCE .ROUTE; Start 07/07/25 at 07:51; Stop 07/07/25 at 07:51; Status DC Ondansetron HCl 4 mg Q6H PRN IVP Last administered on 07/07/25at 14:48; Start 07/07/25 at 12:00; Stop 08/06/25 at 11:59 Acetaminophen 650 mg Q4H PRN RC; Start 07/07/25 at 12:00; Stop 08/06/25 at 11:59 Acetaminophen 650 mg Q6H PRN RC; Start 07/07/25 at 12:00; Stop 08/06/25 at 11:59 Morphine Sulfate 2 mg Q4H PRN IVP Last administered on 07/07/25at 14:48; Start 07/07/25 at 15:00; Stop 07/14/25 at 14:59 Lactated Ringer's 1,000 ml @ 75 mls/hr [id number] IV Last administered on 07/08/25at 04:20; Start 07/07/25 at 15:00; Stop 08/06/25 at 14:59 Hydralazine HCl 5 mg Q6H PRN IV; Start 07/07/25 at 15:00; Stop 08/06/25 at 14:59 Levofloxacin/ Dextrose 100 ml @ 100 mls/hr Q24H IV Last administered on 07/08/25at 10:41; Start 07/08/25 at 10:00; Stop 07/18/25 at 09:59 Metronidazole/ Sodium Chloride 100 ml @ 100 mls/hr Q8H6 IVPB Last administered on 07/08/25at 14:59; Start 07/08/25 at 14:00; Stop 07/18/25 at 13:59 Potassium Chloride 100 ml @ 50 mls/hr AD PRN IV; Start 07/08/25 at 13:00; Stop 08/07/25 at 12:59 Potassium Chloride 200 ml @ 100 mls/hr AD PRN IV; Start 07/08/25 at 13:00; Stop 07/08/25 at 12:57; Status DC MONSERRAT SIMPSON Jr. PAC Jul 08, 2025 16:18
--- NOTE | 2025-07-08 16:18 | CONS ---
CONSULT NOTE: Date of service 07/07/2025 Consulting physician:Dr Giang Consulting service: General surgery Reason for consultation: Small-bowel obstruction History of present illness: This is a 75-year-old male known to our practice after undergoing umbilical hernia repair with bowel resection by Dr. Goins in early May. Patient has been doing well has been following up with our practice for due to concerns of abdominal discomfort presented to the hospital for further evaluation. Patient with reports of nausea and vomiting and inability tolerate oral intake. On presentation concern for small bowel obstruction with possible hernia noted. Patient is seen in the ER resting. No reports of nausea or vomiting. Abdominal pain improving. No flatus reported at this time Medical history: Surgical history: Recent hernia repair in May of 2025 Review of systems: General: No Fever, No Chills, No Night Sweats, No Fatigue, No Malaise, No Appetite, No Other HEENT: No Head Aches, No Visual Changes, No Eye Pain, No Ear Pain, No Dysphasia, No Sinus Congestion, No Post Nasal Drip, No Sore Throat, No Other Pulmonary: No Dyspnea, No Cough, No Pleuritic Chest Pain, No Other Cardiovascular: No: Chest Pain, Palpitations, Orthopnea, Paroxysmal No Dyspnea, Edema, Lt Headedness, Other Gastrointestinal: No: Nausea, Vomiting, Diarrhea, Constipation, Melena, Hematochezia, Other Genitourinary: No Dysuria, No Frequency, No Incontinence, No Hematuria, No Retention, No Other Musculoskeletal: No: other, neck pain, shoulder pain, arm pain, back pain, hand pain, leg pain, foot pain Skin: No Urticaria, No Rash, No Other Neurological: No: Weakness, Numbness, Incoordination, Change in speech, Confusion, Seizures, Other Physical exam: General: Awake alert and oriented Heart: Regular rate and rhythm} Lungs: Clear to auscultation no distress Abdomen: Soft, nontender, nondistended Assessment: This is a 75-year-old male concerns of possible recurrent strangulated hernia Plan: At this point in time patient to remain NPO Surgical team to follow patient No immediate surgical intervention at this time The patient continues with nausea and vomiting NG tube to be placed Dr. Goins to be updated in patient's status and surgical team to follow patient closely MONSERRAT SIMPSON Jr. PAC Jul 08, 2025 16:18
--- NOTE | 2025-07-08 17:00 | HMCIMG ---
EXAM: CR Abdomen, 2 View. CLINICAL HISTORY: sbo COMPARISON: None provided. FINDINGS: BOWEL: The bowel gas pattern is within normal limits. PERITONEUM/SOFT TISSUES: No free air evident. No pathologic appearing calcification. BONES: No acute osseous abnormality. IMPRESSION: The bowel gas pattern is within normal limits. /[place]
[2025-07-09] VITALS: BP 144/85; PULSE 58; RESP 20; TEMP 98.1
[2025-07-09 04:00] VITALS: BP 155/82; PULSE 57; RESP 12; TEMP 98.3
[2025-07-09 05:11] LABS: NUCLEATED RED BLOOD CELLS 0.0 % (0.0-0.19); PLATELET COUNT (AUTO) 167.0 K/uL (130-400); RED BLOOD CELL COUNT(AUTO) 4.87 MIL/uL (4.50-6.20); RED CELL DISTRIBUTION WIDTH 12.5 % (11.0-15.5); WHITE BLOOD COUNT (AUTO) 7.5 K/uL (4.8-10.8)
[2025-07-09 05:39] LABS: CREATININE 1.1 mg/dL (0.5-1.3); GLOMERULAR FILTR. RATE CALC 69.0 mL/min (>90); GLUCOSE,RANDOM 83.0 mg/dL (70-105); SODIUM SERUM 136.0 mmol/L (136-145); UREA NITROGEN, BLOOD 21.0 mg/dL (7-18)
[2025-07-09 08:00] VITALS: BP 134/81; PULSE 59; RESP 17; TEMP 98.3; O2SAT 96
--- NOTE | 2025-07-09 08:31 | DS ---
Discharge Summary Hospital Course Summary: [This is a 75-year-old male admitted due to abdominal pain status post hernia repair due to strangulated hernia. The CT came back with fluid collection in the right side umbilical region, measuring 2.6 cm in diameter, possibly small incarcerated loop of small bowel. No close loop obstruction. Small bowel loops measure 2.8 cm in maximal caliber. Small bilateral to moderate sized bilateral cyst to the left greater than right. Patient was evaluated this morning, his abdominal pain has resolved. But he continues with leukocytosis though downtrending. Patient was started with Levaquin and Flagyl at this time. We will follow up with further recommendations from the general surgeon. Labs reviewed, his potassium is 3.3 we will be covering per protocol. We will keep patient NPO unless otherwise recommended by general surgeon. ] 07/09/2025. Patient is clinically and hemodynamically stable for discharge. Patient's small bowel obstruction was resolved tolerating diet no nausea no vomiting no abdominal pain. The patient was cleared by surgery. Patient was e ncouraged on a high-fiber diet to avoid plenty of fluids. Patient verbalized understanding we will follow-up with his PCP 2-3 days. All questions addressed Zone Maintenance Technician(s): CONSULT NOTE: Date of service 07/07/2025 Consulting physician:Dr Giang Consulting service: General surgery Reason for consultation: Small-bowel obstruction History of present illness: This is a 75-year-old male known to our practice after undergoing umbilical hernia repair with bowel resection by Dr. Goins in early May. Patient has been doing well has been following up with our practice for due to concerns of abdominal discomfort presented to the hospital for further evaluation. Patient with reports of nausea and vomiting and inability tolerate oral intake. On presentation concern for small bowel obstruction with possible hernia noted. Patient is seen in the ER resting. No reports of nausea or vomiting. Abdominal pain improving. No flatus reported at this time Medical history: Surgical history: Recent hernia repair in May of 2025 Review of systems: General: No Fever, No Chills, No Night Sweats, No Fatigue, No Malaise, No Appetite, No Other HEENT: No Head Aches, No Visual Changes, No Eye Pain, No Ear Pain, No Dysphasia, No Sinus Congestion, No Post Nasal Drip, No Sore Throat, No Other Pulmonary: No Dyspnea, No Cough, No Pleuritic Chest Pain, No Other Cardiovascular: No: Chest Pain, Palpitations, Orthopnea, Paroxysmal No Dyspnea, Edema, Lt Headedness, Other Gastrointestinal: No: Nausea, Vomiting, Diarrhea, Constipation, Melena, Hematochezia, Other Genitourinary: No Dysuria, No Frequency, No Incontinence, No Hematuria, No Retention, No Other Musculoskeletal: No: other, neck pain, shoulder pain, arm pain, back pain, hand pain, leg pain, foot pain Skin: No Urticaria, No Rash, No Other Neurological: No: Weakness, Numbness, Incoordination, Change in speech, Confusion, Seizures, Other Physical exam: General: Awake alert and oriented Heart: Regular rate and rhythm} Lungs: Clear to auscultation no distress Abdomen: Soft, nontender, nondistended Assessment: This is a 75-year-old male concerns of possible recurrent strangulated hernia Plan: At this point in time patient to remain NPO Surgical team to follow patient No immediate surgical intervention at this time The patient continues with nausea and vomiting NG tube to be placed Dr. Goins to be updated in patient's status and surgical team to follow patient closely MONSERRAT SIMPSON Jr. PAC Jul 08, 2025 16:18 Assessment/Plan: Discharged dx's [Hypokalemia, POA resolved Abdominal pain with history of recent strangulated umbilical hernia repair and small bowel resection (05/29/2025) no surgical intervention on this admission: tolerated diet Possible small bowel incarceration Resolved Postoperative status -Recent abdominal surgery (hernia repair and small bowel resection) with risk for postoperative complications (adhesions, recurrent hernia, infection, or obstruction). Acute kidney injury or prerenal azotemia (mild): Resolved Bilateral renal cysts (left > right) -Incidental finding on CT; recommend outpatient follow-up with renal ultrasound. Mild leukocytosis. resolved -WBC 11.6, may be related to recent surgery, possible infection, or stress response. Hypertension History of urinary bladder neoplasm -Not well delineated on current imaging; consider ongoing surveillance. PLAN: ADMISSION DATE: 07/07/25 DISCHARGE DATE: 07/09/25 DISPOSITION: home CONDITION: stable MATERIALS ASSOCIATE(S): General surgeon FOLLOW UP APPOINTMENT(S): PCP: 2-3 days PROCEDURES: no surgical intervention IMAGING (S) report attached to summary : MICROBIOLOGY: report attached to summary; ACTIVITY: ab efrain as tolerated HOME MEDICATIONS none profile CHANGES ON HOME MEDICATIONS none High fiber diet. NEW MEDICATIONS; None TEACHING: fall precaution Emergency instructions: The patient was instructed to present to the nearest Emergency Department or call 911 should their symptoms return or worsen. Discharge Instructions: REASON: r/o sbo ORDERING PHYSICIAN: EKTA COWAN MD PROCEDURE: ABD PELVWO - CT ABD/PEL WO CON RENAL/APPY EXAM: CT Abdomen and Pelvis With Intravenous Contrast CLINICAL HISTORY: 75 year old male with abdominal pain and hernia. To rule out SBO. TECHNIQUE: Axial computed tomography images of the abdomen and pelvis without intravenous contrast. CONTRAST: None COMPARISON: CT abdomen dated 05/27/25 FINDINGS: LUNG BASES: No basilar airspace consolidation or pleural effusion. LIVER: Unremarkable. GALLBLADDER AND BILE DUCTS: Unremarkable. No calcified stone. No ductal dilation. PANCREAS: Unremarkable. SPLEEN: Unremarkable. ADRENAL GLANDS: Unremarkable. KIDNEYS, URETERS, AND BLADDER: Small bilateral to moderate-sized renal cysts, left greater than right. No hydronephrosis or nephrolithiasis. No ureteral calculi. The urinary bladder is partially distended. The prior urinary bladder neoplasm is not well delineated on the present evaluation. STOMACH AND BOWEL: Sigmoid colon diverticulosis without diverticulitis. Fluid collection in the right side umbilical region is seen, measuring currently 2.6 cm in diameter, possible small incarcerated loop of small bowel. No closed loop obstruction. Small bowel loops measure 2.8cm in maximal caliber. APPENDIX: Normal appendix seen. PERITONEUM: No free air. LYMPH NODES: No lymphadenopathy. REPRODUCTIVE: Unremarkable as visualized. VASCULATURE: No aortic aneurysm. ABDOMINAL WALL AND SOFT TISSUES: Unremarkable. BONES: Moderate to severe degenerative changes of the lower lumbar spine. No fracture or suspicious osseous abnormality. IMPRESSION: Fluid collection in the right side umbilical region is seen, measuring 2.6 cm in diameter, possibly small incarcerated loop of small bowel. No closed loop obstruction. Small bowel loops measure 2.8cm in maximal caliber. Small bilateral to moderate-sized bilateral renal cysts left greater than right; follow up with nonemergent ultrasound REASON: sbo ORDERING PHYSICIAN: MONSERRAT SIMPSON Jr. PAC PROCEDURE: ABD 1VW - ABD 1VW EXAM: CR Abdomen, 2 View. CLINICAL HISTORY: sbo COMPARISON: None provided. FINDINGS: BOWEL: The bowel gas pattern is within normal limits. PERITONEUM/SOFT TISSUES: No free air evident. No pathologic appearing calcification. BONES: No acute osseous abnormality. IMPRESSION: The bowel gas pattern is within normal limits. Home Medications: No Active Prescriptions or Reported Meds Medication Profile: No Active Prescriptions or Reported Meds Time spent arranging discharge: 31-60 minutes ATTESTATION BY PHYSICIAN I have seen and examined the patient. I reviewed the documentation, medical decision making, and treatment plan as noted by the mid-level provider above. I agree with the findings and plan of care. BHUMI PEREZ MD, [facility] Jul 09, 2025 08:31
--- NOTE | 2025-07-09 11:50 | NUR ---
PT DC'D HOME PER MD ORDER. PER SX OKAY TO DC. PT INSTRUCTED TO F/U WITH PCP IN 3-5 DAYS FOR CONTINUED CARE. PT VERBALIZED UNDERSTANDING. IV REMOVED, TIP INTACT. FAMILY AT BEDSIDE.
== END 2025-07-09 11:50 | disposition home or self-care (01) ==
LOC: EDH 06:32 → UNDOADMOB 11:36 → INTOOBSV 11:36 → EDHIP 11:36 → 1MS 16:10 → EDHIP 16:10 → 1MS 07-09 08:00 → EDHIP 07-09 08:00 → UNDODISOB 07-09 11:50
PROVIDERS: ADMIT Internal Medicine; ATTEND Internal Medicine
DX: E87.6 Hypokalemia (principal); K42.0 Umbilical hernia with obstruction, without gangrene; R79.89 Other specified abnormal findings of blood chemistry; E86.9 Volume depletion, unspecified; N28.1 Cyst of kidney, acquired; D72.829 Elevated white blood cell count, unspecified; R31.29 Other microscopic hematuria; N17.9 Acute kidney failure, unspecified; I10 Essential (primary) hypertension; M54.50 Low back pain, unspecified; D49.4 Neoplasm of unspecified behavior of bladder; Z79.899 Other long term (current) drug therapy; Z98.890 Other specified postprocedural states
CPT/HCPCS: 96376; 96361 ×3; 96375 ×2; 99285; 80053 ×2; 85025; 87086; 83605; 81001; 36415 ×3; 74176; 93005; 96365; 96366 ×2; 96367; 83735 ×2; 85027 ×2; 74018; 80048; Q9963; J2270 ×2; J2405 ×2; J1956 ×2; J3490 ×3; G0378 ×4; 96374